=== PATIENT | male | born 1965 | race Caucasian/White ===

== ENCOUNTER 2024-07-25 07:34 | Emergency (ER) | payer OTHER, MEDICAID, SELFPAY ==
--- NOTE | 2024-07-25 08:01 | PD.EDRME ---
Rapid Medical Screening Exam RME Arrival date/time: 07/25/24 07:34 58-year-old male with HIV and recent diagnosis of syphilis presents emerged department complains of rectal pain and swelling patient was reports associated rash to the area and irritation currently patient is on antibiotics Chief Complaint: Skin/Abscess/Foreign Body Time Seen by Provider: 07/25/24 07:37
[2024-07-25 08:07] VITALS: BMI 25.4
[2024-07-25 08:10] VITALS: BP 94/63; BP 97/63; PULSE 73; RESP 17; TEMP 36.5; O2SAT 100
--- NOTE | 2024-07-25 08:44 | PC.NURSE ---
at 0832 ER had a room for patient,patient decided to leave the ER
== END 2024-07-25 08:46 | disposition left against medical advice (07) ==
PROVIDERS: Emergency Provider Emergency Medicine
DX: K62.89 Other specified diseases of anus and rectum (principal); R21 Rash and other nonspecific skin eruption; Z53.29 Procedure and treatment not carried out because of patient's decision for other reasons
CPT/HCPCS: 80053; 80307; 81001; 85025; 86780; 99281

== ENCOUNTER → 2024-08-08 | Outpatient (CLI) | payer OTHER, MEDICAID, SELFPAY | END | disposition home or self-care (01) | LOC: SWHD 09:33 | PROVIDERS: PCP Internal Medicine; Referring Provider Internal Medicine; Visit Provider Student in an Organized Health Care Education/Training Program | DX: L02.31 Cutaneous abscess of buttock (principal); J44.9 Chronic obstructive pulmonary disease, unspecified; B20 Human immunodeficiency virus [HIV] disease; Z85.819 Personal history of malignant neoplasm of unspecified site of lip, oral cavity, and pharynx; R91.8 Other nonspecific abnormal finding of lung field; A53.9 Syphilis, unspecified; R56.9 Unspecified convulsions; E03.9 Hypothyroidism, unspecified; F17.200 Nicotine dependence, unspecified, uncomplicated; F10.90 Alcohol use, unspecified, uncomplicated; D64.9 Anemia, unspecified; B19.20 Unspecified viral hepatitis C without hepatic coma | CPT/HCPCS: 99214; A9270; G0463 ==

== ENCOUNTER → 2024-08-22 | Outpatient (CLI) | payer OTHER, MEDICAID, SELFPAY | END | disposition home or self-care (01) | LOC: SWHD 09:57 | PROVIDERS: Visit Provider Student in an Organized Health Care Education/Training Program | DX: L02.31 Cutaneous abscess of buttock (principal); L98.491 Non-pressure chronic ulcer of skin of other sites limited to breakdown of skin; J44.9 Chronic obstructive pulmonary disease, unspecified; B20 Human immunodeficiency virus [HIV] disease; Z85.819 Personal history of malignant neoplasm of unspecified site of lip, oral cavity, and pharynx; R91.8 Other nonspecific abnormal finding of lung field; A53.9 Syphilis, unspecified; R56.9 Unspecified convulsions; E03.9 Hypothyroidism, unspecified; F17.200 Nicotine dependence, unspecified, uncomplicated; F10.90 Alcohol use, unspecified, uncomplicated; D64.9 Anemia, unspecified; B19.20 Unspecified viral hepatitis C without hepatic coma | CPT/HCPCS: 99213; A9270; G0463 ==

== ENCOUNTER → 2024-11-21 | Outpatient (CLI) | payer OTHER, MEDICAID, SELFPAY ==
--- NOTE | 2024-11-21 10:52 | XR_ITS ---
Examination: PA lateral chest 2 views TECHNIQUE: Upright PA lateral chest 2 views Exam date and time: November 21, 2024 12:16 PM Comparison May 11, 2023 INDICATIONS: Shortness of breath 6 months. FINDINGS: Prominent pneumonia right base right middle lobe Mild hyperexpansion Normal heart size IMPRESSION: Prominent pneumonia right base right middle lobe
== END | disposition home or self-care (01) ==
PROVIDERS: PCP Student in an Organized Health Care Education/Training Program; Referring Provider Student in an Organized Health Care Education/Training Program; Visit Provider Student in an Organized Health Care Education/Training Program
DX: J18.9 Pneumonia, unspecified organism (principal)
CPT/HCPCS: 71046

== ENCOUNTER 2025-02-02 11:03 | Outpatient (RCR) | payer OTHER, MEDICAID, SELFPAY ==
--- NOTE | 2025-02-02 11:53 | CTCFLWUP_ITS ---
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 Patient was seen for unresectable retromolar trigone cancer after being evaluated [facility] 2015. Stage IV aT2 N2c. Received 7140 cGy completed 04/2016 with concurrent chemo. Patient also HIV positive. PET scan 05/29/2021 revealed small pulmonary nodules too small to biopsy and CT scan was recommended. Repeat PET scan 12/10/2023 no hypermetabolic oropharyngeal mass but 25 mm hypermetabolic pulmonary mass left upper lobe noted. Most recent CT 01/05/2024 revealed 15 mm subcarinal lymph node as well as spiculated pulmonary mass left upper lobe 18 mm. Patient failed to show multiple times for subsequent workup including possible biopsy attempt. Patient is now here to get a checkup regarding his lung masses. Appears somewhat tired with borderline low blood pressure. Lungs clear. A#! History of stage IV aT2 N2c. Retromolar trigone cancer. Chemoradiation completed 04/2016 with no sign of recurrence clinically and on subsequent PET scans. A#2. Suspected lung malignancy on PET and CT scan performed a year ago. Missed follow-up appointments. A#3. Agrees to have new CT scan and I will see him again in 2 months. Will consider biopsy pending CT findings. Electronically signed by: Delano Short M.D. 02/02/2025 11:50 AM
== END 2025-03-02 23:59 | disposition home or self-care (01) ==
LOC: SCTC 11:03
PROVIDERS: PCP Licensed Vocational Nurse; Referring Provider Licensed Vocational Nurse; Visit Provider Radiology Therapeutic Radiology
DX: Z08 Encounter for follow-up examination after completed treatment for malignant neoplasm (principal); Z85.818 Personal history of malignant neoplasm of other sites of lip, oral cavity, and pharynx; R91.8 Other nonspecific abnormal finding of lung field; Z21 Asymptomatic human immunodeficiency virus [HIV] infection status
CPT/HCPCS: 99212; G0463

== ENCOUNTER → 2025-02-27 | Outpatient (CLI) | payer OTHER, MEDICAID, SELFPAY ==
--- NOTE | 2025-02-27 15:30 | XR_ITS ---
Examination: CT chest with intravenous contrast 2-D sagittal and coronal reconstructions Exam date and time: February 27, 2025 1602 hours Comparison August 12, 2023 INDICATIONS: Diagnosis oral cancer 2016, subtle nodular parenchymal disease in both lungs on CT chest February 10, 2024, restaging CTDI:vol (mGy) 10.9 DLP: (mGycm) 453 Technique: Multiple axial sections of the thorax have been obtained. Sections have been obtained, 3 mm slice thickness. Mediastinal and lung density settings have been obtained. Intravenous contrast administered, 30 cc Isovue-300. 2-D sagittal, coronal images obtained. Low dose protocols were performed. One or more of the following dose reduction techniques were used; automated exposure control, adjustment of the mA and/or KV according to patient size, use of iterative reconstruction technique. Findings: No thoracic aortic aneurysmal dilatation or dissection No pulmonary artery filling defects on this non-CTA study No paratracheal tracheobronchial or bronchopulmonary adenopathy Again noted nodular parenchymal disease in the right lung, severe in the right middle lobe without significant change from February 10, 2024 There is more prominent nodular parenchymal disease at the left base, axial image 218, including 12 mm nodule No visualized liver or splenic lesion No gallstones No pancreatic or adrenal mass No hydronephrosis IMPRESSION: Again noted extensive nodular parenchymal disease in the right lung, most prominent in the right middle lobe without significant change compared to prior study There is interval more prominent nodular parenchymal disease at the left base including 12 mm pulmonary nodule All of this disease may be infectious in etiology, pulmonary neoplastic disease less likely but not excluded, clinical correlation advised, recommend 3 month follow-up CT chest without contrast
== END | disposition home or self-care (01) ==
PROVIDERS: Referring Provider Radiology Therapeutic Radiology; Visit Provider Radiology Therapeutic Radiology
DX: R91.8 Other nonspecific abnormal finding of lung field (principal); C06.2 Malignant neoplasm of retromolar area
CPT/HCPCS: 71260; A4649; Q9967

== ENCOUNTER 2025-04-06 10:25 | Outpatient (RCR) | payer OTHER, MEDICAID, SELFPAY ==
--- NOTE | 2025-04-06 11:27 | CTCFLWUP_ITS ---
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 Patient was seen for unresectable retromolar trigone cancer after being evaluated at [facility] 2015. Stage IV aT2 N2c. Received 7140 cGy completed 04/2016 with concurrent chemo. Patient also HIV positive. Most recent PET scan 12/10/2023 revealed no hypermetabolic oropharyngeal mass but 25 mL hypermetabolic pulmonary mass left upper lobe noted. CT scan 01/05/2024 revealed 15 mm subcarinal lymph node as well as spiculated pulmonary mass left upper lobe 18 mm. After failing to show for over a year was seen at [facility] 02/02/[address] scan was ordered. This revealed on 02/27/2025 no significant change with extensive nodular parenchymal disease right lung and right middle lobe noted previously. There was more prominent nodular parenchymal disease left base including 12 mm pulmonary nodule. Patient was examined with no sign of any recurrence in the oral cavity or neck. Lungs were clear. Patient states that he was recently treated for pneumonia and had 2 different antibiotics recently completed. A#1. History of stage IV retromolar trigone cancer 2016 chemoradiation with complete response. A#2. Chronic nodular parenchymal disease chest no significant CT change from the one done a year ago. A#3. Being followed at [facility] recently treated with antibiotics for pneumonia. Urged continued follow-up. A#4. I will see him back in 4 months. Cc: [facility]. Electronically signed by: Delano Short M.D. 04/06/2025 11:25 AM
== END 2025-05-02 23:59 | disposition home or self-care (01) ==
LOC: SCTC 10:25
PROVIDERS: PCP Internal Medicine; Referring Provider Internal Medicine; Visit Provider Radiology Therapeutic Radiology
DX: Z08 Encounter for follow-up examination after completed treatment for malignant neoplasm (principal); Z85.818 Personal history of malignant neoplasm of other sites of lip, oral cavity, and pharynx; Z92.3 Personal history of irradiation; Z92.21 Personal history of antineoplastic chemotherapy; R91.8 Other nonspecific abnormal finding of lung field
CPT/HCPCS: 99212; G0463

== ENCOUNTER 2025-05-08 21:54 | Inpatient (IN) | payer OTHER, MEDICAID, MEDICARE, SELFPAY ==
[2025-05-08] VITALS (13 sets, daily range): BP systolic 93–104; BP diastolic 54–58; PULSE 76–98; RESP 16–26; TEMP 36.7–37.8; O2SAT 89–100; BMI 25.8
--- NOTE | 2025-05-08 22:17 | XR_ITS ---
EXAMINATION: AP chest single view TECHNIQUE: AP portable upright chest single view Date and time: May 0801/2025, 10:22 p.m., comparison November 21, 2024 MEDICATIONS: Shortness of breath today. FINDINGS: Extensive left lung and right base pneumonia. Normal heart size Significant osteopenia IMPRESSION: Extensive left lung and right base pneumonia
--- NOTE | 2025-05-08 22:21 | PD.EDADULT ---
ED General RME/HPI General Chief complaint: Shortness of Breath/Dyspnea Stated complaint: SOB Time Seen by Provider: 05/08/25 22:02 Arrival date/time: 05/08/25 21:54 RME / HPI RME / HPI narrative: Joseph is a 59 y/o male with PMHx of HIV (on Dovato,), oral cancer, hypothyroidism, and depression who comes in for an evaluation of shortness of breath, worsening, acute onset, brought in from EMS services, oxygen level at 75 with associated subjective fever. Patient reports that his condition has been worsening. He denies a cough at this time, chest pain, however, endorses that he has not been eating well and has had some vomiting episodes described as clear. He says that he used to see Dr Corral, infectious disease, for his HIV management and is on fluconazole prophylactically for valley fever, however he has never had valley fever. He says that he is not seeing Dr Corral anymore due to insurance purposes. He does not have a current PCP at this time. He does not use home oxygen at this time. He does not have any history of lung disease. He has been admitted to the hospital for similar kind of symptoms. He says that he was drinking last night, however does not drink heavy. He says he lives alone. 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 He does state that he sees Dr. Short for his oral cancer for treatment as this was diagnosed in 2017 at [facility]. Denies any recent sick contacts, however says that his dog recently. Related Data Home Medications ?Medication ?Instructions ?Recorded ?Confirmed dolutegravir 50 mg-lamivudine 300 1 tab PO QDAY 05/27/21 02/10/24 mg tablet (Dovato) levothyroxine 200 mcg tablet 150 mcg PO QDAY 05/27/21 02/10/24 omeprazole 20 mg capsule,delayed 20 mg PO QDAY 05/27/21 02/10/24 release venlafaxine 75 mg capsule,extended 225 mg PO QAM 05/27/21 02/10/24 release 24 hr (Effexor XR) Allergies Allergy/AdvReac Type Severity Reaction Status Date / Time sulfamethoxazole Allergy Severe HIVES Verified 05/08/25 21:57 trimethoprim Allergy Severe HIVES Verified 05/08/25 21:57 Review of Systems Review of Systems Narrative Review of Systems: 12 point ROS reviewed and is otherwise negative unless stated directly in the HPI ED Exam Narrative Physical exam: General: AAOx3, in mild distress, HEENT: Moist mucous membranes, conjunctiva clear, EOMI, PERRLA, poor dentition Cardiovascular: S1, S2, radial pulses +2 bilat, RRR Pulmonary: CTAB bilat no cough, no wheezing, on oxy mask GI: No tenderness to light or deep palpitation, no guarding, rigidity, rebound tenderness or distension Extremities: No presence of trace or pitting edema in lower extremities bilaterally, dorsalis pedis pulses +2 bilaterally, tattoo on leg Neuro: AAOx3, no focal motor or sensory deficits in the UE or LE bilat Psych: Able to cooperate. Course Quality Measures none Orders Category Date Time Status Bedside COVID-19 Antigen Test NOW Care 05/08/25 22:03 Active Bedside Influenza A&B Antigen Test NOW Care 05/08/25 22:15 Completed COVID-19 Screening Questionnaire NOW Care 05/09/25 02:[address] Screening NOW Care 05/08/25 23:[address] Screening NOW Care 05/08/25 23:18 Active Decision to Admit X1 Care 05/09/25 02:59 Active EKG (ED ONLY) *Do not use* NOW Care 05/08/25 22:03 Completed Insert IV NOW Care 05/08/25 22:03 Active Straight [In and Out Catheter] X1 Care 05/08/25 22:[address] abdomen pelvis w con Stat Exams 05/08/25 23:[address] angio chest Stat Exams 05/08/25 23:18 Taken EKG (ED Only) Stat Exams 05/08/25 22:03 Ordered US venous doppler LE BI Stat Exams 05/09/25 00:00 Taken XR chest 1V portable Stat Exams 05/08/25 22:17 Taken ABG [Arterial Blood Gas] Stat Lab 05/08/25 22:30 Completed BNP [B-Type Natriuretic Peptide] Stat Lab 05/09/25 00:32 Completed Beta Hydroxybutyrate Stat Lab 05/08/25 22:10 Completed Bilirubin,Direct Stat Lab 05/08/25 22:10 Completed Blood Culture (Lab) Stat Lab 05/08/25 22:15 Received C-Reactive Protein Stat Lab 05/08/25 22:10 Completed CBC Stat Lab 05/08/25 22:10 Completed CMP [Comprehensive Metabolic Panel] Stat Lab 05/08/25 22:10 Completed Cocci Serology IgM with reflex to IgG [Cocci Serology, Lab 05/08/25 23:25 Received Unk History] Stat D-Dimer Stat Lab 05/08/25 22:10 Completed Drug Screen,Urine Stat Lab 05/09/25 02:12 Received Free T3 Stat Lab 05/08/25 22:10 Completed Free T4 (Free Thyroxine) Stat Lab 05/08/25 22:10 Completed Influenza A & B Rapid Panel Stat Lab 05/08/25 22:03 Ordered Lactic Acid [Lactate (Lactic Acid)] Stat Lab 05/08/25 22:10 Completed Mag [Magnesium] Stat Lab 05/08/25 22:10 Completed Procalcitonin Stat Lab 05/08/25 22:10 Completed Sed Rate (ESR) Stat Lab 05/08/25 22:10 Completed Sputum Culture and Gram Stain Stat Lab 05/09/25 00:38 Received Thyroid Stimulating Hormone Stat Lab 05/08/25 22:10 Completed Troponin I Stat Lab 05/08/25 22:10 Completed Urinalysis, C/S if Indicated Stat Lab 05/09/25 02:12 Completed ALBUTEROL RT 3ml [Proventil Rt 3ml] Med 05/08/25 22:18 Discontinued 2.5 mg INH X1 ONE Azithromycin Inj [Zithromax Inj] 500 mg Med 05/09/25 01:43 Discontinued Sodium Chloride 0.9% 250 ml [Ns] 250 ml IV X1 Ketorolac Inj [Toradol Inj] Med 05/08/25 22:19 Discontinued 30 mg IVP X1 ONE Magnesium Sulfate 2 GM Ivpb [Magnesium Sulfate Ivpb] Med 05/08/25 23:16 Discontinued 2 gm in 50 ml IV X1 MethylPREDNISolone.* [SoluMEDROL Inj] Med 05/08/25 22:19 Discontinued 125 mg IVP X1 ONE Ondansetron Inj [Zofran Inj] Med 05/08/25 22:28 Discontinued 4 mg IVP X1 ONE Sodium Chloride 0.9% 1000 ml [Ns] 1,000 ml Med 05/08/25 22:19 Discontinued IV 999 mls/hr Sodium Chloride 0.9% 1000 ml [Ns] 1,000 ml Med 05/09/25 00:43 Discontinued IV 999 mls/hr Sodium Chloride Rt Kelly 10% [NS Rt Kelly 10%] Med 05/08/25 23:16 Discontinued 5 ml INH X1 ONE cefTRIAXone/D5w 1gm IV premix [Rocephin/D5w 1gm IV Med 05/08/25 22:20 Discontinued premix] 1 gm in 50 ml IV X1 Chest Physiotherapy Treatment NOW RT 05/08/25 23:15 Active Oxygen Delivery NOW RT 05/08/25 22:03 Active Sputum Induction PRN RT 05/08/25 23:30 Ordered Vital Signs Vital signs: Vital Signs Temperature 98.1 F 05/08/25 22:00 Pulse Rate 84 05/08/25 22:00 Respiratory Rate 18 05/08/25 22:00 Blood Pressure 93/58 L 05/08/25 22:00 Pulse Oximetry (%) 95 05/08/25 22:00 Oxygen Delivery Method Room Air 05/08/25 22:00 Discharge Plan Plan Patient Disposition: Admit Acute Care w/in Hospital Prescriptions/Referrals Prescriptions/Med Rec: No Action venlafaxine [Effexor XR] 75 mg Capsule,Extended Release 24hr 225 mg PO QAM omeprazole 20 mg Capsule,Delayed Release(Dr/Ec) 20 mg PO QDAY levothyroxine 200 mcg Tablet 150 mcg PO QDAY Dovato 50-300 mg Tablet 1 tab PO QDAY Referrals: No Primary/Family,Physician [Primary Care Provider] - In 1 week Problem List Clinical Impression: Sepsis due to pneumonia Patient/Caregiver Discharge Instructions Print Language: German Stand Alone Forms: Amisha Award Info., Patient Portal Info Letter MDM Narrative MDM hospital course (for use when minimal MDM required): 2220: Sepsis alert initiated for fever and tachypnea. Initiating labs at this time in addition to Toradol, Solu-Medrol, Zofran, albuterol x 1 and Rocephin. Will also order chest x-ray and EKG in addition to sepsis workup 2320: Initiated high-flow for patient, will order T4 and T3 as TSH was elevated at 38, labs reviewed as well, ordered magnesium for hypomagnesemia and bronchospasm. Will order CTA chest with contrast for further evaluation of lungs as chest x-ray shows significant pneumonia. Also ordered CT abdomen pelvis as well. We are concerned for mucous plug at this time due to partial blockage of left lung. ABG pH 7.37, pCO2 31, bicarbonate 18, pO2 64. Also ordered chest physiotherapy as well. 1 L bolus for HANNA w/ CTA. 0205: Reviewed imaging which shows does not show PE at this time, however, ground glass opacities in the lungs. CT Abd/Pelvis shows some stool burden, however no abscess or free air or perforation. Gave additional azithromycin and additional fluid bolus. Spoke with hospitalist team who will discuss case for admission. 0300: Hospitalist team accepts patient for admission. EKG Interpretation EKG #1: EKG Interpretation: Heart rate 93, sinus rhythm with some PVCs, QT 345, no ST changes Medication Administration(s) Medication Administration History Discontinued Medications Albuterol (Albuterol Rt 2.5 Mg/3 Ml Nebu) 2.5 mg INH X1 ONE Stop: 05/08/25 22:19 Last Admin: 05/08/25 22:54 Dose: 2.5 mg Documented By: LISE Sodium Chloride (Ns) 1,000 mls @ 999 mls/hr IV .Q1H1M ONE Stop: 05/08/25 23:19 Last Infusion: 05/09/25 00:01 Dose: Infused Documented By: Admin: 05/08/25 22:52 Dose: 999 mls/hr Documented By: SUSHMA Ceftriaxone Sodium/Dextrose (Rocephin/D5w 1gm Iv Premix) 1 gm in 50 mls @ 100 mls/hr IV X1 ONE Stop: 05/08/25 22:49 Last Infusion: 05/08/25 23:33 Dose: Infused Documented By: Admin: 05/08/25 22:53 Dose: 100 mls/hr Documented By: SUSHMA Magnesium Sulfate (Magnesium Sulfate Ivpb) 2 gm in 50 mls @ 25 mls/hr IV X1 ONE Stop: 05/09/25 01:15 Last Infusion: 05/09/25 01:59 Dose: Infused Documented By: Admin: 05/08/25 23:50 Dose: 25 mls/hr Documented By: CALLIE Sodium Chloride (Ns) 1,000 mls @ 999 mls/hr IV .Q1H1M ONE Stop: 05/09/25 01:43 Last Infusion: 05/09/25 01:59 Dose: Infused Documented By: Admin: 05/09/25 00:45 Dose: 999 mls/hr Documented By: CALLIE Azithromycin 500 mg/ Sodium (Chloride) 250 mls @ 250 mls/hr IV X1 ONE Stop: 05/09/25 02:42 Last Admin: 05/09/25 02:13 Dose: 250 mls/hr Documented By: CALLIE Comments: DISCARTED MEDS BOTTLE BEFORE SCANNING MEDS. Ketorolac Tromethamine (Ketorolac Inj 30 Mg/Ml Vial) 30 mg IVP X1 ONE Stop: 05/08/25 22:20 Last Admin: 05/08/25 22:52 Dose: 30 mg Documented By: SUSHMA Methylprednisolone Sodium Succinate (Methylprednisolone Sod Succ 62.5 Mg/Ml 2ml Vial) 125 mg IVP X1 ONE Stop: 05/08/25 22:20 Last Admin: 05/08/25 22:52 Dose: 125 mg Documented By: SUSHMA Ondansetron HCl (Ondansetron Inj 2 Mg/Ml Inj 2 Ml) 4 mg IVP X1 ONE; Protocol Stop: 05/08/25 22:29 Last Admin: 05/08/25 23:00 Dose: 4 mg Documented By: SUSHMA Sodium Chloride (Sodium Chloride Rt 10% 15 Ml Nebu) 5 ml INH X1 ONE Stop: 05/08/25 23:17 Last Admin: 05/09/25 00:36 Dose: 5 ml Documented By: LISE Consultations/Discussions re: Management Consult #1: Date/time: 05/09/25 2:06 am Physician, specialty, service, details: 0206: Spoke with hospitalist team who will discuss case for admission. 0300: Hospitalist team accepts patient for admission
[2025-05-08 22:25] LABS: Lactate (Lactic Acid) 1.8 mMol/L (0.4-2.0)
[2025-05-08 22:26] LABS: Basophils # (Auto) 0.0 Thou/mm3 (0.0-0.2); Basophils % (Auto) 0 % (0-2.5); Eosinophils # (Auto) 0.0 Thou/mm3 (0.0-0.5); Eosinophils % (Auto) 0 % (0-10); Hematocrit 35.1 % (41.0-53.0); Hemoglobin 11.4 g/dL (13.5-16.0); Immature Granulocytes Auto 0.16 Thou/mm3 (0.00-0.00); Lymphocytes # (Auto) 2.6 Thou/mm3 (1.0-4.8); Lymphocytes % (Auto) 18 % (10-50); Mean Corpuscular HGB Conc 32.5 g/dl (31.0-37.0); Mean Corpuscular Hemoglobin 28.9 pg (25.0-35.0); Mean Corpuscular Volume 89 fL (80-100); Monocytes # (Auto) 1.0 Thou/mm3 (0.0-0.8); Monocytes % (Auto) 7 % (0-12); Neutrophils # (Auto) 10.9 Thou/mm3 (1.8-7.7); Neutrophils % (Auto) 74 % (37-80); Nucleated Red Blood Cell # 0.00 Thou/mm3 (0.00-0.00); Nucleated Red Blood Cell % 0 /100 WBC (0); Platelet Count 187 Thou/mm3 (140-440); RDW Standard Deviation 54.4 fL (35.1-43.9); Red Blood Count 3.95 Miln/mm3 (4.50-5.90); White Blood Count 14.6 Thou/mm3 (3.8-10.6)
[2025-05-08 22:34] LABS: Base Excess -7 (-3-3); HCO3 18 mEq/L (20-26); Inspired Oxygen, FIO2 13 %; O2 Saturation 88 % (91-98); PCO2 31 mmHg (32.0-48.0); PO2 64 mmHg (83-108); pH, Arterial 7.37 (7.35-7.45)
[2025-05-08 22:36] LABS: Allen Test Performed/OK; Puncture Site Right Radial
[2025-05-08 22:39] LABS: Beta Hydroxybutyrate 0.8 mmol/L (<0.6); Sed Rate (ESR) 14 mm/hr (0-20)
[2025-05-08] MEDS: MethylPREDNISolone SOD SUCC 62.5 MG/ML 2ML VIAL 125 MG IVP (22:52)
[2025-05-08] MEDS: SODIUM CHLORIDE 0.9% 1000 ML 1,000 ML 999 ML IV (22:52)
[2025-05-08] MEDS: KETOROLAC INJ 30 MG/ML VIAL IVP (22:52)
[2025-05-08] MEDS: cefTRIAXone/D5w 1gm IV premix 1 GM/50 ML BAG IV (22:53)
[2025-05-08] MEDS: ALBUTEROL RT 2.5 MG/3 ML NEBU INH (22:54)
[2025-05-08 22:57] LABS: D-Dimer 1290 ng/mL (<600)
[2025-05-08 22:58] LABS: Alanine Aminotransferase 10 U/L (10-49); Albumin, Serum 4.1 gm/dL (3.5-5.0); Albumin/Globulin Ratio 1.5 (1.2-2.2); Alkaline Phosphatase 73 U/L (46-116); Anion Gap 10 (7-16); Aspartate Amino Transferase 21 U/L (0-34); BUN/Creatinine Ratio 18 Ratio (12-20); Bilirubin,Direct 0.2 mg/dL (0.0-0.3); Bilirubin,Total 0.5 mg/dL (0.3-1.2); Blood Urea Nitrogen 35 mg/dL (9-23); C-Reactive Protein 20.1 mg/dL (0.0-0.9); Calcium 9.1 mg/dL (8.3-10.6); Calcium (Corrected) 9.1 mg/dL (8.5-10.1); Carbon Dioxide 19.4 mMol/L (20.0-31.0); Chloride 106 mMol/L (98-107); Creatinine (Component) 1.9 mg/dL (0.6-1.3); Estimated Creatinine Clearance 43.8 mL/min (>60); Globulin 2.8 gm/dL (2.3-3.5); Glucose 100 mg/dL (74-106); Magnesium 1.3 mg/dL (1.6-2.6); Osmolality,Calculated 278 (275-295); Potassium 3.8 mMol/L (3.4-5.1); Procalcitonin 7.15 ng/ml (0.0-0.49); Sodium 135 mMol/L (136-145); Thyroid Stimulating Hormone 38.13 uIU/mL (0.55-4.78); Total Protein 6.9 gm/dL (5.7-8.2); Troponin I < 0.020 ng/mL (0.0-0.045); eGFR 40 See Note
[2025-05-08] MEDS: ONDANSETRON INJ 2 MG/ML INJ 2 ML 4 MG IVP (23:00)
--- NOTE | 2025-05-08 23:18 | XR_ITS ---
Examination: CTA chest with intravenous contrast 2-D reconstructions 3-D reconstructions, vascular Date and time of exam: May 08, 2025, 11:36 p.m. INDICATIONS: Shortness of breath chest pain today CTDI: vol (mGy) 9.28 DLP: (mGycm) 361 Technique: Multiple axial sections of the thorax have been obtained. 3 mm slice thickness, from below the hemidiaphragms to above the apices of the lungs. Mediastinal and lung density settings have been obtained. 2-D sagittal and coronal reconstructions. 3-D angiographic renderings, 3-D volume renderings, 3D post processing, vascular maximum intensity projections obtained. Contrast administered is 50 cc Isovue-300. Low dose protocols were performed. One or more of the following dose reduction techniques were used; automated exposure control, adjustment of the mA and/or KV according to patient size, use of iterative reconstruction technique. Findings: No thoracic aortic aneurysm dilatation or dissection No pulmonary artery emboli. Minimal hilar lymphadenopathy. Extensive bilateral pneumonia, no pleural disease No visualized liver splenic lesion no gallstones Pancreas is not enlarged IMPRESSION: Negative for pulmonary artery emboli Extensive bilateral pneumonia
--- NOTE | 2025-05-08 23:18 | XR_ITS ---
Examination: CT abdomen with intravenous contrast CT pelvis with intravenous contrast 2-D coronal reconstructions 2-D sagittal reconstructions Date and time of exam: May 08, 2025, 11:36 p.m. INDICATIONS: Onset abdominal pain today. CTDI: vol (mGy) 7.34 DLP: (mGycm) 49 Technique: Multiple axial sections of the abdomen and pelvis have been obtained. 64 slice high-resolution scanner used. 3 mm axial sections have been obtained, post intravenous injection 50 cc Isovue-300 2-D sagittal, coronal reconstructions obtained. Low dose protocols were performed. One or more of the following dose reduction techniques were used; automated exposure control, adjustment of the mA and/or KV according to patient size, use of iterative reconstruction technique. Findings: No focal liver lesions No gallstones Splenomegaly 15 cm Extensive bibasilar pneumonia No pancreatic or adrenal mass No renal or ureteral calculi Aorta normal size No bowel obstruction No pericecal inflammatory change Urinary bladder intact Mild prostatomegaly IMPRESSION: Splenomegaly No acute process in the abdomen or pelvis
--- NOTE | 2025-05-08 23:34 | PC.RT ---
pt on CT at this time RT with pt 15L oxy mask tolerating well RR25, spo2 96,, hr 76.
[2025-05-08 23:39] LABS: Free T3 1.2 pg/mL (2.3-4.2); Free T4 (Free Thyroxine) 0.61 ng/dL (0.89-1.76)
[2025-05-08] MEDS: Magnesium Sulfate 2 GM Ivpb 2 GM/50 ML BAG IV (23:50)
--- NOTE | 2025-05-08 23:59 | PC.RT ---
talk to DR. Ceja pt was titrated to 10L oxy mask once back from ct spo2 100%, RR18-25 mild tachypnea noted,
[2025-05-09] VITALS (14 sets, daily range): BP systolic 100–134; BP diastolic 58–83; PULSE 64–84; RESP 14–22; TEMP 36.1–37.2; O2SAT 76–100; BMI 26.2
--- NOTE | 2025-05-09 | XR_ITS ---
Examination: Venous duplex lower extremity sonogram, bilateral. Date and time of exam: May 09, 2025, 0015 hours INDICATIONS: Difficulty breathing today Technique: Multiple sonographic images of the deep venous system have been obtained. B-mode/2-D grayscale imaging of vascular structures and Doppler spectral analysis (waveforms) and color performed Both legs are examined. Findings: Deep venous systems do not demonstrate abnormal echogenicity. All visualized deep veins exhibit compressibility. All visualized deep veins exhibit augmentation. Impression: Negative for deep vein thrombosis
[2025-05-09] MEDS: SODIUM CHLORIDE RT 10% 15 ML NEBU 5 ML INH (00:36)
[2025-05-09] MEDS: SODIUM CHLORIDE 0.9% 1000 ML 1,000 ML 999 ML IV (00:45)
[2025-05-09 00:55] LABS: B-Type Natriuretic Peptide 316 pg/mL (0-100)
--- NOTE | 2025-05-09 01:25 | PRELIM_ITS ---
CT scan of the abdomen and pelvis with intravenous contrast (axial sections with sagittal and coronal reformats) May 08, 2025 2336 hours Clinical History: Abd pain Comparison: No prior study is available for comparison. Radiation Dose: Total exam DLP 449 mGy/cm Findings: The evaluation is limited by respiratory motion artifact. The liver, pancreas, kidneys and adrenals are unremarkable. The gallbladder is distended. The spleen is mildly enlarged, measuring 15 cm. A small fat-containing umbilical hernia is present. No evidence of bowel obstruction. A moderate amount of fecal material is present in the colon. The appendix is within normal limits (coronal images 65- 72/160). There is no mesenteric or retroperitoneal adenopathy. The abdominal aorta demonstrates atheromatous calcification without evidence of aneurysm. The urinary bladder is incompletely distended at the time of the examination and appears mildly thick walled. There is no free fluid or free air. The osseous structures are unremarkable. There are small fat-containing bilateral inguinal hernias. Impression: No evidence of bowel obstruction, free air or abscess. Other findings as described above. Report on Chest CT to follow. Report Electronically Signed By: Kayleen Russell 05/09/2025 1:24:57 AM [EST]
--- NOTE | 2025-05-09 01:47 | PRELIM_ITS ---
CT angiogram of the chest with intravenous contrast (axial sections with sagittal and coronal reformats) May 08, 2025 2336 hours Clinical History: SOB Technique:Helical axial sections with sagittal and coronal reformats of the chest were obtained with intravenous contrast. Iterative reconstruction technique was employed to reduce patient radiation exposure. 3D/MIP reconstructed images were also provided. Comparison: No prior study is available for comparison. Findings: The evaluation of some of the subsegmental pulmonary artery divisions is limited due to a suboptimal bolus of contrast. No pulmonary thromboembolism in the remainder of the pulmonary artery divisions. The mediastinum demonstrates no evidence of mass or lymphadenopathy. The thoracic aorta is unremarkable. There is a small pericardial effusion. There are alveolar opacities with ground glass opacities in the bilateral lungs, more prominent in left lung.There are scattered subsegmental atelectasis and scarring noted. No evidence of pleural effusion or pneumothorax. Mild degenerative changes are identified in the spine. The visualized upper abdominal viscera are unremarkable. Impression: No CT evidence of pulmonary thromboembolism (limited evaluation of some of the subsegmental pulmonary artery divisions due to a suboptimal bolus of contrast). Recommend additional evaluation, if clinically indicated. Alveolar opacities with ground glass opacities in the bilateral lungs, likely of infectious etiology. Recommend clinical correlation. Small pericardial effusion. Other findings as described above. Report Electronically Signed By: Kayleen Russell 05/09/2025 1:47:33 AM [EST]
[2025-05-09] MEDS: AZITHROMYCIN INJ 500 MG in SODIUM CHLORIDE 0.9% 250 ML 250 ML 250 MG IV (02:13)
--- NOTE | 2025-05-09 02:16 | PRELIM_ITS ---
Bilateral lower extremity venous Doppler ultrasound. May 09, 2025 0115 hours Clinical history: EDEMA H[employer]IM[employer] Technique: Duplex scan of the bilateral lower extremity deep venous systems was performed utilizing 2D grayscale imaging, Doppler spectral analysis and color flow Doppler and with compression. Comparison: No prior study is available for comparison. Findings: Castillo scale, color flow and spectral Doppler evaluation of the lower extremity deep veins was performed. Right: The common femoral, superficial femoral and popliteal veins are patent and compressible. Normal respiratory variation is noted. There is no evidence of occlusive or nonocclusive thrombus. The great saphenous vein is patent at the level of the saphenofemoral junction. Left: The common femoral, superficial femoral and popliteal veins are patent and compressible. Normal respiratory variation is noted. There is no evidence of occlusive or nonocclusive thrombus. The great saphenous vein is patent at the level of the saphenofemoral junction. Impression: No sonographic evidence of deep venous thrombosis in both lower extremities. Report Electronically Signed By: Kayleen Russell 05/09/2025 2:15:33 AM [EST]
[2025-05-09 02:21] LABS: Collection Type, Urine Catheter; Squamous Epithelial Cell,Urine 0 /hpf (0-5)
[2025-05-09 02:27] LABS: Bilirubin,Urine Negative (Negative); Blood,Urine Negative (Negative); Clarity,Urine Clear (Clear/Hazy); Color,Urine Lt-Yellow (Lt Yel-Yel); Culture Indicated,Urine Not Indicated; Glucose, Urine Negative (Negative); Ketones,Urine Negative (Negative); Leukocyte Esterase,Urine Negative (Negative); Nitrite,Urine Negative (Negative); PH,Urine 6.0 (5.0-7.0); Protein,Urine Trace (Neg - Trace); RBC,Urine 1 /hpf (0-3); Specific Gravity,Urine 1.017 (1.001-1.035); Urobilinogen,Urine Negative mg/dL (0.0-1.0); WBC,Urine < 1 /hpf (0-5)
--- NOTE | 2025-05-09 03:37 | ESHP_ITS ---
<Statement entered by Wu Bejarano MD - 05/09/25 16:11> I have discussed and was present for the essential components of the history, physical examination, diagnosis, and treatment plan with the resident. I agree with the patient's care as documented by the resident and amended herein by me. Wu Bejarano MD FACP. Documentation for date of: 05/09/25 HPI History of Present Illness Chief complaint: shortness of breath History of present illness: This is a 59 year old male patient with past medical history of HIV ( on Davato since 2009) last CD4 count 110 in 2022 ,retromolar trigone cancer, Hypothyrodism ,CKD, Depression and Metamphetamine user presented to the ER with shortness of breath. He has been experiencing shortness of breath associated with fever since yesterday. He complains of occasional hemoptysis with cough but denies any chest pain ,chest tightness ,hemetemsis and Melena. He had previous hospitalization for pneumonia 4 months back .He consults Dr. Corral for his HIV treatment but not seeing him because of Insurance issues. ED Visit Vitals - BP:112/64, AL: 71bpm , RR:15 ,Temp 100.1 Saturating at 90% on 10 L of oxygen. Pertinent Labs are Hb:11.4,WBC:14.6 ,BUN:35, Creatinine :1.9 , Q-npheo-3367, BNP-316, ABG Shows PH-7.37,Spo2-64, Co2- 31, HCo3-19.4, Procal-7.15 , CRP-20.1 ,TSH-38.1, Free T4-0.6, Free T3-1.2. Creatinine clearance-43.8 eGFR-40 , Magnesium-1.3. Positive for Marijuana and Amphetamines Imaging CT angio of chest B/L alveolar opacities suggestive of Infective etiology. Past Medical History: HIV- on Dovato, Hypothyrodism on Levothyroxine , Depression- Venlafaxine, On flucanazole and Dapsone for prophylaxis against opportunistic infection. Allergic History: Allergic to TMP-SMX - which was like 15 years ago- cant remember type of reaction. Social History- Smokes Tobacco , Marijuana, Metamphetamine user and used to drink alcohol. ROS - as stated above Review of Systems Review of Systems Systems Reviewed: All systems reviewed, normal except as documented Exam Vital Signs Temp Pulse Resp BP Pulse Ox O2 Del Method O2 Flow Rate 98.1 F 77 16 121/68 100 Oxy Mask 8 05/09/25 02:05 05/09/25 02:25 05/09/25 02:25 05/09/25 02:05 05/09/25 02:25 05/09/25 02:05 05/09/25 02:25 FiO2 100 05/08/25 23:14 Narrative Exam GENERAL: NAD, AAOx3 HEENT: Moist mucosa. Eyes open, symmetrical, & clear CARDIO: Normal Heart sounds. No Murmurs. PULM: Dyspnea at rest , bilateral crackles heard over the bases GI: Abdomen soft, nondistended, non tender and BS are heard SKIN/MSK/EXT: erythematous bleeding plaque over right lower extremity, Multiple scratches on both hands.. Pedal pulses present B/L NEURO: AAOx3, no focal neuro deficits, able to move all 4 extremities Results: Labs 05/08/25 22:10 05/08/25 22:10 Labs: Short CBC 05/08/25 Range/Units 22:10 WBC 14.6 H (3.8-10.6) Thou/mm3 Hgb 11.4 L (13.5-16.0) g/dL Hct 35.1 L (41.0-53.0) % Plt Count 187 (140-440) Thou/mm3 BMP 05/08/25 22:10 Sodium 135 L Potassium 3.8 Chloride 106 Carbon Dioxide 19.4 L BUN 35 H Creatinine 1.9 H Glucose 100 Calcium 9.1 Cardiac Enzymes 05/08/25 Range/Units 22:10 Troponin I < 0.020 (0.0-0.045) ng/mL Liver Function 05/08/25 Range/Units 22:10 Total Bilirubin 0.5 (0.3-1.2) mg/dL Direct Bilirubin 0.2 (0.0-0.3) mg/dL AST 21 (0-34) U/L ALT 10 (10-49) U/L Alkaline Phosphatase 73 (46-116) U/L Albumin 4.1 (3.5-5.0) gm/dL Urine 05/09/25 Range/Units 02:12 Urine Color Lt-Yellow (Lt Yel-Yel) Urine Clarity Clear (Clear/Hazy) Urine pH 6.0 (5.0-7.0) Ur Specific [place] 1.017 (1.001-1.035) Urine Protein Trace (Neg - Trace) Urine Glucose (UA) Negative (Negative) ABG Interpretation ABG results: 05/08/25 22:30 ABG pH 7.37 ABG pCO2 31 L ABG pO2 64 L ABG HCO3 18 L ABG O2 Saturation 88 L ABG Base Excess -7 L Quality Measures Quality Measures none Medications Home Medications and Allergies Home Medications ?Medication ?Instructions ?Recorded ?Confirmed ?Type dolutegravir 50 mg-lamivudine 300 1 tab PO QDAY 02/10/24 History mg tablet (Dovato) levothyroxine 200 mcg tablet 150 mcg PO QDAY 05/27/21 02/10/24 History omeprazole 20 mg capsule,delayed 20 mg PO QDAY 1 02/10/24 History release venlafaxine 75 mg capsule,extended 225 mg PO QAM 05/2702/10/24 History release 24 hr (Effexor XR) Allergies Allergy/AdvReac Type Severity Reaction Status Date / Time sulfamethoxazole Allergy Severe HIVES Verified 05/08/25 21:57 trimethoprim Allergy Severe HIVES Verified 05/08/25 21:57 Visit Medications Acetaminophen (Acetaminophen 325 Mg Tablet) 650 mg PO Q6H PRN PRN Reason: Fever >100.4 Stop: 06/08/25 03:16 Acetaminophen (Acetaminophen 325 Mg Tablet) 650 mg PO Q6H PRN PRN Reason: PAIN SCALE 1-3 (mild Stop: 06/08/25 03:16 Albuterol/Ipratropium (Albuterol/Ipratropium (Duoneb) Rt Kelly 3 Ml Nebu) 3 ml INH Q6HRRT [facility] Stop: 06/08/25 06:59 Doxycycline Hyclate (Doxycycline 100 Mg Tablet) 100 mg PO BID [facility] Stop: 05/16/25 08:59 Heparin Sodium (Porcine) (Heparin Sod Inj 5000 Unit/Ml Vial) 5,000 unit SC BID [facility] Stop: 05/23/25 08:59 Lactated Ringer's (Lactated Ringers) 1,000 mls @ 60 mls/hr IV .[id number] [facility] Stop: 05/09/25 19:54 Cefepime HCl 1 gm/ Sodium (Chloride) 50 mls @ 100 mls/hr IV QDAY [facility] Stop: 05/16/25 08:59 Metronidazole (Flagyl 500 Mg Iv) 500 mg in 100 mls @ 200 mls/hr IV Q8HR [facility] Stop: 05/16/25 03:22 Metronidazole (Flagyl 500 Mg Iv) 500 mg in 100 mls @ 200 mls/hr IV X1 ONE Stop: 05/09/25 03:59 Methylprednisolone Sodium Succinate (Methylprednisolone Sod Succ 40 Mg/Ml Vial) 40 mg IVP QDAY [facility] Stop: 05/16/25 08:59 Ondansetron HCl (Ondansetron Inj 2 Mg/Ml Inj 2 Ml) 4 mg IVP Q6H PRN; Protocol PRN Reason: NAUSEA OR VOMITING Stop: 06/08/25 03:16 Sennosides (Senna Tablet) 1 tab PO QDAY PRN; Protocol PRN Reason: constipation Stop: 06/08/25 03:16 Discontinued Medications Albuterol (Albuterol Rt 2.5 Mg/3 Ml Nebu) 2.5 mg INH X1 ONE Stop: 05/08/25 22:19 Last Admin: 05/08/25 22:54 Dose: 2.5 mg Sodium Chloride (Ns) 1,000 mls @ 999 mls/hr IV .Q1H1M ONE Stop: 05/08/25 23:19 Last Infusion: 05/09/25 00:01 Dose: Infused Ceftriaxone Sodium/Dextrose (Rocephin/D5w 1gm Iv Premix) 1 gm in 50 mls @ 100 mls/hr IV X1 ONE Stop: 05/08/25 22:49 Last Infusion: 05/08/25 23:33 Dose: Infused Magnesium Sulfate (Magnesium Sulfate Ivpb) 2 gm in 50 mls @ 25 mls/hr IV X1 ONE Stop: 05/09/25 01:15 Last Infusion: 05/09/25 01:59 Dose: Infused Sodium Chloride (Ns) 1,000 mls @ 999 mls/hr IV .Q1H1M ONE Stop: 05/09/25 01:43 Last Infusion: 05/09/25 01:59 Dose: Infused Azithromycin 500 mg/ Sodium (Chloride) 250 mls @ 250 mls/hr IV X1 ONE Stop: 05/09/25 02:42 Last Admin: 05/09/25 02:13 Dose: 250 mls/hr Ketorolac Tromethamine (Ketorolac Inj 30 Mg/Ml Vial) 30 mg IVP X1 ONE Stop: 05/08/25 22:20 Last Admin: 05/08/25 22:52 Dose: 30 mg Methylprednisolone Sodium Succinate (Methylprednisolone Sod Succ 62.5 Mg/Ml 2ml Vial) 125 mg IVP X1 ONE Stop: 05/08/25 22:20 Last Admin: 05/08/25 22:52 Dose: 125 mg Ondansetron HCl (Ondansetron Inj 2 Mg/Ml Inj 2 Ml) 4 mg IVP X1 ONE; Protocol Stop: 05/08/25 22:29 Last Admin: 05/08/25 23:00 Dose: 4 mg Sodium Chloride (Sodium Chloride Rt 10% 15 Ml Nebu) 5 ml INH X1 ONE Stop: 05/08/25 23:17 Last Admin: 05/09/25 00:36 Dose: 5 ml Assessment & Plan Plan This is a 59 year old male patient with past medical history of HIV ( on Davato since 2009) last CD4 count 110 in 2022 , Hypothyrodism ,CKD with shortness of breath and fever. He was admitted for Acute Hypoxic Respiratory Failure. # Acute Hypoxic Respiratory Failure # Sepsis - secondary to PNA. # ? Pneumocystis Pneumonia - Shortness of breath , fever WBC -14.6 ,CRP-20.1, Procal-7.15 , ABG- SpO2 -64, Saturating at 90% on 10L of O2. CT scan shows B/L alveolar opacities.Patient came to the ED hypoxic and required BiPaP at that time. Consider starting TMP-SmX for pneumocystis pneumonia . - Scheduled on [employer] Coverage- Cefepime,1g,Doxy 100mg BID. - Oxygen supplementation. - IV Methylprednisone- low oxygen Spo2 and increased A-a gradient. - Consulted . #HIV Day team to Continue Dovato and prophylaxis based on CD4 count. # Hypothyrodism: Started home medications -Levothyroxine 150 mcg. # pulmonary nodule CT of the neck 12/14/[address] of the chest showing new pulmonary nodule left upper lobe 18 mm. Follow up outpatient # Depression: -Continue Home Medication Venlafaxine #Polysubstance Use - Counselling recommended Code status: Full DVT prophylaxis: Heparin Diet: Regular Lines: PIV Supplemental O2: OXymask on 10L Disposition: MED-TELE I discussed and reviewed this case with my senior and my attending Dr. Bejarano. Jay Mccarty MD PGY1
[2025-05-09 03:43] LABS: Amphetamine/Methamp Scrn,U Positive (Negative); Barbiturate Screen,Urine Negative (Negative); Benzodiazepines Screen,Urine Negative (Negative); Benzoylecgonine Screen, Ur Negative (Negative); Fentanyl Screen,Urine Negative (Negative); Opiate Screen,Urine Negative (Negative); THC Screen,Urine Positive (Negative)
[2025-05-09] MEDS: metroNIDAZOLE/NS 500 MG IVPB 500 MG/100 ML BAG 200 MG IV (04:28)
[2025-05-09] MEDS: RINGERS LACTATED 1000 ML 1,000 ML 60 ML IV (04:29)
[2025-05-09 05:22] LABS: Basophils # (Auto) 0.0 Thou/mm3 (0.0-0.2); Basophils % (Auto) 0 % (0-2.5); Eosinophils # (Auto) 0.0 Thou/mm3 (0.0-0.5); Eosinophils % (Auto) 0 % (0-10); Hematocrit 35.9 % (41.0-53.0); Hemoglobin 11.6 g/dL (13.5-16.0); Immature Granulocytes Auto 0.27 Thou/mm3 (0.00-0.00); Lymphocytes # (Auto) 0.9 Thou/mm3 (1.0-4.8); Lymphocytes % (Auto) 9 % (10-50); Mean Corpuscular HGB Conc 32.3 g/dl (31.0-37.0); Mean Corpuscular Hemoglobin 29.3 pg (25.0-35.0); Mean Corpuscular Volume 91 fL (80-100); Monocytes # (Auto) 0.3 Thou/mm3 (0.0-0.8); Monocytes % (Auto) 3 % (0-12); Neutrophils # (Auto) 9.0 Thou/mm3 (1.8-7.7); Neutrophils % (Auto) 86 % (37-80); Nucleated Red Blood Cell # 0.00 Thou/mm3 (0.00-0.00); Nucleated Red Blood Cell % 0 /100 WBC (0); Platelet Count 168 Thou/mm3 (140-440); RDW Standard Deviation 56.9 fL (35.1-43.9); Red Blood Count 3.96 Miln/mm3 (4.50-5.90); White Blood Count 10.5 Thou/mm3 (3.8-10.6)
[2025-05-09 06:28] LABS: Alanine Aminotransferase 10 U/L (10-49); Albumin, Serum 4.0 gm/dL (3.5-5.0); Albumin/Globulin Ratio 1.4 (1.2-2.2); Alkaline Phosphatase 71 U/L (46-116); Anion Gap 10 (7-16); Aspartate Amino Transferase 21 U/L (0-34); BUN/Creatinine Ratio 20 Ratio (12-20); Bilirubin,Total 0.3 mg/dL (0.3-1.2); Blood Urea Nitrogen 30 mg/dL (9-23); Calcium 8.9 mg/dL (8.3-10.6); Calcium (Corrected) 8.9 mg/dL (8.5-10.1); Carbon Dioxide 20.0 mMol/L (20.0-31.0); Chloride 111 mMol/L (98-107); Creatinine (Component) 1.5 mg/dL (0.6-1.3); Estimated Creatinine Clearance 55.4 mL/min (>60); Globulin 2.9 gm/dL (2.3-3.5); Glucose 128 mg/dL (74-106); Magnesium 1.9 mg/dL (1.6-2.6); Osmolality,Calculated 289 (275-295); Potassium 4.4 mMol/L (3.4-5.1); Sodium 141 mMol/L (136-145); Thyroid Stimulating Hormone 10.77 uIU/mL (0.55-4.78); Total Protein 6.9 gm/dL (5.7-8.2); eGFR 54 See Note
--- NOTE | 2025-05-09 08:00 | PC.NURSE ---
Pt. here from home to room 2, pt. states he has been SOB on and off X 3 months, pt. states last night SOB got worse and he had a fever. Pt. states he is tired. Pt. resting comfortably in bed in room 2, no s/s of distress at this time.
[2025-05-09] MEDS: LEVOTHYROXINE SODIUM 125 MCG TABLET PO (08:27)
[2025-05-09] MEDS: CEFEPIME INJ 1 GM in SODIUM CHLORIDE 0.9% (Popper) 50 ML IV (10:13)
[2025-05-09] MEDS: DOXYCYCLINE 100 MG TABLET PO (10:13)
[2025-05-09] MEDS: HEPARIN SOD INJ 5000 UNIT/ML VIAL SC ×2 (10:13→21:57)
[2025-05-09 11:47] LABS: Cocci Serology, IgM Positive (Negative)
[2025-05-09 11:48] LABS: Cocid Sro, CF/ID (UCD) NO CHG* See Sep Rpt
--- NOTE | 2025-05-09 14:47 | ESPR_ITS ---
<Statement entered by Nishant Winslow MD - 05/09/25 17:04> Patient was seen and evaluated at bedside this morning. No acute overnight events. Patient was admitted for acute hypoxic respiratory failure likely secondary to coccidiomycosis pneumonia. 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 His cocci did come back positive therefore fluconazole 400 mg daily was started. Given the patient's susceptibility to PCP we will do Bactrim 2 tablets 3 times daily for PCP coverage and continue with cefepime for now. It was documented that patient has allergy to Bactrim, but on interview with the patient patient stated that he only had some mouth ulcers after Bactrim, benefits outweighed the risk at this time given the possibility of PCP pneumonia and that given that patient is on a controlled environment and gets routine monitoring we will go ahead and start Bactrim with close follow-up. In summary on cefepime, Bactrim, fluconazole, IV methylprednisolone, and Benadryl as needed for allergies. Pending ID recommendations. I have reviewed the note and agree with the resident's assessment & plan with exceptions as below. I have personally reviewed labs, imaging, home meds/prior records, examined the patient, formulated and discussed management plan with my attending Case disclosed with attending Dr. Agustín Winslow PGY2 Disclaimer: Even though this this note was dictated by speech recognition and even though it was carefully revised there may still be minor errors in turbo generator oiler due to voice recognition software. Documentation for date of: 05/09/25 Subjective Subjective Interval history: Overnight, patient admitted. Patient reports 2 months of worsening shortness of breath, weakness, and fatigue. Patient reports slight streaks of bloody sputum yesterday, day of admission. Reports some 2 episodes of fever prior to admission, resolved with Tylenol. Patient continues to be short of breath, saturating 95% on oxy mask 5 L, temporarily the oxygen line was detached and patient desaturated to 73% while conversing. Otherwise denies any other bodily pain. Vitals labs reviewed. WBC 10.5, hemoglobin stable 11.6. Potassium 4.4, bicarb increased from 19-20 and BUN decreased from 35-30. Creatinine also decreased from 0.9-1.5. Cocci positive, pending HIV RNA CD4 count, sputum culture and blood culture. Likely has coccidiomycosis pneumonia. However cannot rule out other opportunistic infections, depending on CD4 count will de-escalate or escalate antibiotics. Started fluconazole 400 mg daily amd continue cefepime and TMP- SMX. Patient is allergic to TMP-SMX and instructed to report any s/e, IV benadryl on board. Continue IV methylprednisolone 40 mg daily due to high O2 requirement. Supplemental O2 as needed. Code status changed to full code as patient is amenable to intubation if necessary, however does not want prolonged intubation if condition is not reversible. Exam Vital Signs Temp Pulse Resp BP Pulse Ox O2 Del Method O2 Flow Rate 98.9 F 64 17 102/62 96 Oxy Mask 7 05/09/25 08:00 05/09/25 08:00 05/09/25 08:00 05/09/25 08:00 05/09/25 08:00 05/09/25 08:00 05/09/25 08:00 FiO2 100 05/08/25 23:14 Narrative Exam GENERAL: AOx3, teary HEENT: NC/AT, mucous membranes moist, bilateral sclera anicteric CARDIOVASCULAR: regular rate and rhythm, S1/S2 present, no murmurs appreciated PULMONARY: diminished breath sounds bilaterally, crackles bilateral bases ABDOMINAL: soft, non-tender, non-distended, no rebound/guarding, bowel sounds present EXTREMITIES: no peripheral edema SKIN: warm and dry, several small scabbed lesions various healing stages on BUE on forearms, BLE on shins, L ear, upper back NEURO: CN II-XII grossly intact, no focal deficits, alert, following commands Objective Labs 05/09/25 04:36 05/09/25 04:36 Labs: Laboratory Results - last 24 hr 05/08/25 05/08/25 05/09/25 22:10 22:30 00:32 WBC 14.6 H RBC 3.95 L Hgb 11.4 L Hct 35.1 L MCV 89 MCH 28.9 MCHC 32.5 RDW Std Deviation 54.4 H Plt Count 187 Neut % (Auto) 74 Lymph % (Auto) 18 Garfield % (Auto) 7 Eos % (Auto) 0 Baso % (Auto) 0 Neut # (Auto) 10.9 H Lymph # (Auto) 2.6 Garfield # (Auto) 1.0 H Eos # (Auto) 0.0 Baso # (Auto) 0.0 Immature Gran # (Auto) 0.16 H Absolute Nucleated RBC 0.00 Immature Gran % 1 H Nucleated RBC % 0 ESR 14 D-Dimer 1290 H Puncture Site Right Radial ABG pH 7.37 ABG pCO2 31 L ABG pO2 64 L ABG HCO3 18 L ABG O2 Saturation 88 L ABG Base Excess -7 L FiO2 13 Sodium 135 L Potassium 3.8 Chloride 106 Carbon Dioxide 19.4 L Anion Gap 10 BUN 35 H Creatinine 1.9 H Estim Creat Clear Calc 43.8 L eGFR 40 L BUN/Creatinine Ratio 18 Glucose 100 Calculated Osmolality 278 Lactic Acid 1.8 Calcium 9.1 Corrected Calcium 9.1 Magnesium 1.3 L Total Bilirubin 0.5 Direct Bilirubin 0.2 AST 21 ALT 10 Alkaline Phosphatase 73 Troponin I < 0.020 C-Reactive Prot, Quant 20.1 H B-Natriuretic Peptide 316 H Total Protein 6.9 Albumin 4.1 Globulin 2.8 Albumin/Globulin Ratio 1.5 Beta-Hydroxybutyrate/Acetoacetate 0.8 H Procalcitonin 7.15 H TSH 38.13 H Free T4 0.61 L Free T3 pg/dL 1.2 L Ur Collection Type Urine Color Urine Clarity Urine pH Ur Specific [place] Urine Protein Urine Glucose (UA) Urine Ketones Urine Blood Urine Nitrite Urine Bilirubin Urine Urobilinogen (Auto) Ur Leukocyte Esterase Urine RBC Urine WBC Ur Squamous Epith Cells Urine Bacteria Ur Culture Indicated? Urine Opiates Screen Urine Fentanyl Screen Ur Barbiturates Screen U Amphetamin/Meth Scrn U Benzodiazepines Scrn U Cocaine Metab Screen U Marijuana (THC) Screen C[facility]ioides [facility] Result 05/09/25 05/09/25 05/09/25 02:12 04:36 05:58 WBC 10.5 RBC 3.96 L Hgb 11.6 L Hct 35.9 L MCV 91 MCH 29.3 MCHC 32.3 RDW Std Deviation 56.9 H Plt Count 168 Neut % (Auto) 86 H Lymph % (Auto) 9 L Garfield % (Auto) 3 Eos % (Auto) 0 Baso % (Auto) 0 Neut # (Auto) 9.0 H Lymph # (Auto) 0.9 L Garfield # (Auto) 0.3 Eos # (Auto) 0.0 Baso # (Auto) 0.0 Immature Gran # (Auto) 0.27 H Absolute Nucleated RBC 0.00 Immature Gran % 3 H Nucleated RBC % 0 ESR D-Dimer Puncture Site ABG pH ABG pCO2 ABG pO2 ABG HCO3 ABG O2 Saturation ABG Base Excess FiO2 Sodium 141 Potassium 4.4 D Chloride 111 H Carbon Dioxide 20.0 Anion Gap 10 BUN 30 H Creatinine 1.5 H Estim Creat Clear Calc 55.4 L eGFR 54 L BUN/Creatinine Ratio 20 Glucose 128 H Calculated Osmolality 289 Lactic Acid Calcium 8.9 Corrected Calcium 8.9 Magnesium 1.9 Total Bilirubin 0.3 Direct Bilirubin AST 21 ALT 10 Alkaline Phosphatase 71 Troponin I C-Reactive Prot, Quant B-Natriuretic Peptide Total Protein 6.9 Albumin 4.0 Globulin 2.9 Albumin/Globulin Ratio 1.4 Beta-Hydroxybutyrate/Acetoacetate Procalcitonin TSH 10.77 H D Free T4 Free T3 pg/dL Ur Collection Type Catheter Urine Color Lt-Yellow Urine Clarity Clear Urine pH 6.0 Ur Specific [place] 1.017 Urine Protein Trace Urine Glucose (UA) Negative Urine Ketones Negative Urine Blood Negative Urine Nitrite Negative Urine Bilirubin Negative Urine Urobilinogen (Auto) Negative Ur Leukocyte Esterase Negative Urine RBC 1 Urine WBC < 1 Ur Squamous Epith Cells 0 Urine Bacteria None Ur Culture Indicated? Not Indicated Urine Opiates Screen Negative Urine Fentanyl Screen Negative Ur Barbiturates Screen Negative U Amphetamin/Meth Scrn Positive A U Benzodiazepines Scrn Negative U Cocaine Metab Screen Negative U Marijuana (THC) Screen Positive A Coccidioides IgM Ab Misc Test Result Cancelled 05/09/25 05:58 WBC RBC Hgb Hct MCV MCH MCHC RDW Std Deviation Plt Count Neut % (Auto) Lymph % (Auto) Garfield % (Auto) Eos % (Auto) Baso % (Auto) Neut # (Auto) Lymph # (Auto) Garfield # (Auto) Eos # (Auto) Baso # (Auto) Immature Gran # (Auto) Absolute Nucleated RBC Immature Gran % Nucleated RBC % ESR D-Dimer Puncture Site ABG pH ABG pCO2 ABG pO2 ABG HCO3 ABG O2 Saturation ABG Base Excess FiO2 Sodium Potassium Chloride Carbon Dioxide Anion Gap BUN Creatinine Estim Creat Clear Calc eGFR BUN/Creatinine Ratio Glucose Calculated Osmolality Lactic Acid Calcium Corrected Calcium Magnesium Total Bilirubin Direct Bilirubin AST ALT Alkaline Phosphatase Troponin I C-Reactive Prot, Quant B-Natriuretic Peptide Total Protein Albumin Globulin Albumin/Globulin Ratio Beta-Hydroxybutyrate/Acetoacetate Procalcitonin TSH Free T4 Free T3 pg/dL Ur Collection Type Urine Color Urine Clarity Urine pH Ur Specific [place] Urine Protein Urine Glucose (UA) Urine Ketones Urine Blood Urine Nitrite Urine Bilirubin Urine Urobilinogen (Auto) Ur Leukocyte Esterase Urine RBC Urine WBC Ur Squamous Epith Cells Urine Bacteria Ur Culture Indicated? Urine Opiates Screen Urine Fentanyl Screen Ur Barbiturates Screen U Amphetamin/Meth Scrn U Benzodiazepines Scrn U Cocaine Metab Screen U Marijuana (THC) Screen Coccidioides IgM Ab Misc Test Result Cancelled ABG Interpretation ABG results: 05/08/25 22:30 ABG pH 7.37 ABG pCO2 31 L ABG pO2 64 L ABG HCO3 18 L ABG O2 Saturation 88 L ABG Base Excess -7 L Quality Measures Quality Measures none Assessment & Plan Assessment Current Active Medications: Generic Name Dose Route Start Last Admin Trade Name Freq PRN Reason Stop Dose Admin Acetaminophen 650 mg 05/09/25 03:17 Acetaminophen 325 Mg Tablet PO 06/08/25 03:16 Q6H PRN Fever >100.4 Acetaminophen 650 mg 05/09/25 03:17 Acetaminophen 325 Mg Tablet PO 06/08/25 03:16 Q6H PRN PAIN SCALE 1-3 (mild Albuterol/Ipratropium 3 ml 05/09/25 07:00 Albuterol/Ipratropium (Duoneb) Rt Kelly 3 Ml Nebu INH 06/08/25 06:59 Q6HRRT HUSSEIN (Dolutegravir- 0 ea 05/09/25 13:45 Lamivudine [Dovato] PO 06/08/25 13:44 50-300 Mg Tablet) DAILY HUSSEIN Diphenhydramine HCl 25 mg 05/09/25 11:45 Diphenhydramine Inj 50 Mg/Ml Vial IVP 06/08/25 11:44 X1 PRN allergic reaction Fluconazole 400 mg 05/09/25 13:55 Fluconazole 100 Mg Tablet PO 05/16/25 13:54 DAILY HUSSEIN Heparin Sodium (Porcine) 5,000 unit 05/09/25 09:00 05/09/25 10:13 Heparin Sod Inj 5000 Unit/Ml Vial SC 05/23/25 08:59 5,000 unit BID HUSSEIN Administration Lactated Ringer's 1,000 mls @ 60 mls/hr 05/09/25 03:15 05/09/25 04:29 Lactated Ringers IV 05/09/25 19:54 60 mls/hr .[id number] HUSSEIN Administration Cefepime HCl 1 gm/ Sodium 50 mls @ 100 mls/hr 05/09/25 09:00 05/09/25 10:13 Chloride IV 05/16/25 08:59 100 mls/hr QDAY HUSSEIN Administration Methylprednisolone Sodium Succinate 40 mg 05/09/25 09:00 05/09/25 10:13 Methylprednisolone Sod Succ 40 Mg/Ml Vial IVP 05/16/25 08:59 40 mg QDAY HUSSEIN Administration Ondansetron HCl 4 mg 05/09/25 03:17 Ondansetron Inj 2 Mg/Ml Inj 2 Ml IVP 06/08/25 03:16 Q6H PRN NAUSEA OR VOMITING Protocol Pantoprazole Sodium 40 mg 05/09/25 14:10 Pantoprazole Inj 40 Mg Vial IVP 06/08/25 14:09 BID HUSSEIN Sennosides 1 tab 05/09/25 03:17 Senna Tablet PO 06/08/25 03:16 QDAY PRN constipation Protocol Trimethoprim/Sulfamethoxazole 2 tab 05/09/25 14:00 Trimethoprim/Sulfa 160/800 Ds Tablet PO 05/27/25 13:59 TID HUSSEIN Venlafaxine HCl 150 mg 05/09/25 11:45 Venlafaxine Xr 37.5 Mg Capcr PO 06/08/25 11:44 QAM [facility] 59M pmhx significant for 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 #Acute Hypoxic Respiratory Failure 2/2 #Coccidiomycosis PNA #HIV on Davato Presented with 2 months of worsening fatigue, weakness, SOB and occasional fevers. Endorses some medication noncompliance of all home medications, missing doses a few times. On admission WBC 14.6, CRP 20.1, Procal 7.15 , ABG- SpO2 -64, saturating at 90% on 10L of O2, requiring BiPAP previously. Previously followed Dr. Corral outpatient however due to insurance issues has not had recent appointment. Previously on dapsone but stopped taking. CXR extensive L lung and R base PNA. CTAP bibasilar pneumonia, splenomegaly 15mm. CTA chest negative for PE. BLE US neg for DVT There is suspicion of PCP given HIV, pending CD4 count and sputum Cx, CAP vs opportunistic infection. 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 Short, with last appointment 04/06/25. Patient reports previously undergoing radiation as he could not tolerate chemotherapy. 12/10/23 PET scan revealed no hypermetabolic oropharyngeal mass but a hypermetabolic pulmonary mass L upper lobe. CT 01/05/24 15mm subcarinal lymph node and spiculated pulmonary mass L upper lobe 18mm. Repeat CT 02/02/25 no significant change with extensive nodular parenchymal disease R lung and R middle lobe, but more prominent nodular parenchymal disease L base including 12mm pulmonary nodule. Plan: - Consider consulting radiation oncology if patient does not improve with abx #HANNA likely prerenal, improving on #CKDIIIa Admission Cr 1.9, baseline 1.2-1.4. Following 2L NS, Cr improved to 1.5. Likely 2/2 poor PO intake and current pulmonary infection. Plan: - CTM Cr - Avoid nephrotoxic agents and renally dose medication - 1L LR and abx as above #Hypothyrodism Plan: - Restart home Levothyroxine 150 mcg # Depression Plan: - Continue home venlafaxine ER 150 mg #Polysubstance use #Methanphetamine use #Tobacco use #Marijuana use UDS on admission positive for methanphetamines in which he smokes and marijuana Plan: - Extensive substance use counselling Hospital management: Lines: PIV Diet: Regular Bowel: Senna prn GI prophylaxis: IV pantoprazole 40 mg BID DVT prophylaxis: heparin q12 Disposition: [facility] for IV and PO abx CODE STATUS: Limited code, no prolonged intubation Plan of care discussed with attending Dr. Randolph, and PGY-2 Dr. Maxwell. Vicenta Meyers DO PGY-1 Internal Medicine Attending Provider Attestation/Addendum I have discussed and was present for the essential components of the history, physical examination, diagnosis, and treatment plan with the resident. I agree with the patient's care as documented by the resident and amended herein by me. Jonny Randolph DO. Although this document has been carefully reviewed, there may still be some phonetic and other typographical errors. These errors are purely grammatical due to imperfections in the software program and should not be construed in any way to compromise the substance of the patient's medical care during this visit. Patient seen and evaluated this AM. 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 Vital signs stable, patient afebrile overnight patient remains on OxyMask 7 L, SpO2 96%. Significant labs including normal WBC, normal platelet count, BMP significant for a BUN of 30 and a creatinine of 1.5 which is downtrending, CRP 20, BNP 316, Pro-Ron 7.15, TSH 10.77 and a free T4 of 0.61 as well as a free T3 of 1.2. Of note, we did test the patient for Coccidioides and was positive for IgM thus far. For the patient's pneumonia, we will treat for bacterial with cefepime, Bactrim for possible PJP also with steroids, Solu-Medrol 40 mg IV daily, and will start fluconazole 400 mg daily for coccidiomycosis. Infectious disease has been consulted, appreciate recommendations and assistance with antibiotic de-escalation. CD4 count is also pending. Will continue home medications as appropriate to include the patient's Dovato which has been submitted to the pharmacy.
[2025-05-09] MEDS: FLUCONAZOLE 100 MG TABLET 400 MG PO (15:01)
[2025-05-09] MEDS: TRIMETHOPRIM/SULFA 160/800 DS TABLET 2 TAB PO ×2 (15:01→21:49)
[2025-05-09] MEDS: VENLAFAXINE XR 37.5 MG CAPCR 150 MG PO (15:02)
[2025-05-09] MEDS: ALBUTEROL/IPRATROPIUM (Duoneb) RT SOL 3 ML NEBU INH (19:20)
[2025-05-10] VITALS (12 sets, daily range): BP systolic 94–122; BP diastolic 50–77; PULSE 61–88; RESP 10–23; TEMP 36.1–36.5; O2SAT 91–99
[2025-05-10] MEDS: ALBUTEROL/IPRATROPIUM (Duoneb) RT SOL 3 ML NEBU INH ×4 (00:32→18:30)
--- NOTE | 2025-05-10 03:07 | PC.NURSE ---
Lab called to report that blood culture is + for gram positive cocci for the aerobic bottle, Dr. Brown was made aware, no new orders for pt at this time, plan of care ongoing.
[2025-05-10 03:35] LABS: Basophils # (Auto) 0.0 Thou/mm3 (0.0-0.2); Basophils % (Auto) 0 % (0-2.5); Eosinophils # (Auto) 0.0 Thou/mm3 (0.0-0.5); Eosinophils % (Auto) 0 % (0-10); Hematocrit 32.6 % (41.0-53.0); Hemoglobin 10.8 g/dL (13.5-16.0); Immature Granulocytes Auto 0.39 Thou/mm3 (0.00-0.00); Lymphocytes # (Auto) 0.5 Thou/mm3 (1.0-4.8); Lymphocytes % (Auto) 5 % (10-50); Mean Corpuscular HGB Conc 33.1 g/dl (31.0-37.0); Mean Corpuscular Hemoglobin 29.8 pg (25.0-35.0); Mean Corpuscular Volume 90 fL (80-100); Monocytes # (Auto) 0.4 Thou/mm3 (0.0-0.8); Monocytes % (Auto) 4 % (0-12); Neutrophils # (Auto) 8.9 Thou/mm3 (1.8-7.7); Neutrophils % (Auto) 87 % (37-80); Nucleated Red Blood Cell # 0.00 Thou/mm3 (0.00-0.00); Nucleated Red Blood Cell % 0 /100 WBC (0); Platelet Count 172 Thou/mm3 (140-440); RDW Standard Deviation 56.3 fL (35.1-43.9); Red Blood Count 3.63 Miln/mm3 (4.50-5.90); White Blood Count 10.2 Thou/mm3 (3.8-10.6)
[2025-05-10 04:01] LABS: Alanine Aminotransferase 9 U/L (10-49); Albumin, Serum 3.8 gm/dL (3.5-5.0); Albumin/Globulin Ratio 1.5 (1.2-2.2); Alkaline Phosphatase 61 U/L (46-116); Anion Gap 9 (7-16); Aspartate Amino Transferase 20 U/L (0-34); BUN/Creatinine Ratio 18 Ratio (12-20); Bilirubin,Total 0.2 mg/dL (0.3-1.2); Blood Urea Nitrogen 23 mg/dL (9-23); Calcium 8.8 mg/dL (8.3-10.6); Calcium (Corrected) 9.0 mg/dL (8.5-10.1); Carbon Dioxide 21.2 mMol/L (20.0-31.0); Chloride 111 mMol/L (98-107); Creatinine (Component) 1.3 mg/dL (0.6-1.3); Estimated Creatinine Clearance 64.0 mL/min (>60); Globulin 2.6 gm/dL (2.3-3.5); Glucose 147 mg/dL (74-106); Magnesium 1.9 mg/dL (1.6-2.6); Osmolality,Calculated 287 (275-295); Phosphorous 1.9 mg/dL (2.4-5.1); Potassium 3.8 mMol/L (3.4-5.1); Sodium 141 mMol/L (136-145); Total Protein 6.4 gm/dL (5.7-8.2); eGFR > 60 See Note
[2025-05-10] MEDS: TRIMETHOPRIM/SULFA 160/800 DS TABLET 2 TAB PO ×2 (05:02→13:05)
--- NOTE | 2025-05-10 08:18 | PC.NURSE ---
Notified MD of pt oxygen saturation of 86-88% on 15L oxymask. Said they will consult with team and call RN back
[2025-05-10] MEDS: CEFEPIME INJ 1 GM in SODIUM CHLORIDE 0.9% (Popper) 50 ML IV (09:29)
[2025-05-10] MEDS: VENLAFAXINE XR 37.5 MG CAPCR 150 MG PO (09:30)
[2025-05-10] MEDS: FLUCONAZOLE 100 MG TABLET 400 MG PO (09:30)
[2025-05-10] MEDS: LEVOTHYROXINE SODIUM 125 MCG, LEVOTHYROXINE SODIUM 25 MCG 150 MCG PO (09:31)
[2025-05-10] MEDS: HEPARIN SOD INJ 5000 UNIT/ML VIAL SC ×2 (09:32→20:29)
--- NOTE | 2025-05-10 11:41 | ESCONSULT_ITS ---
<Statement entered by Ernst Corral MD - 05/15/25 11:53> pt seen with resident. all findings confirmed. see additional notes for details HPI Data of Consult Requesting Physician: Ashwin Randolph DO Admitting Provider: Wu Bejarano MD Attending Provider: Ashwin Randolph DO Primary Care Provider: Physician No Primary/Family Consult Narrative Reason for consult: PNA in the setting of HIV History of present illness: Mr. Gutierrez is a 59 y.o male with PMHx significant for HIV on Dovato since 2009, retromolar trigone cancer, Hypothyrodism ,CKD, Depression and Metamphetamine use who presented to the ED on 05/09/25 with for worsening shortness of breath. Patient states that he has been having shortness of breath and not feeling good for the last few weeks to months. Patient also states that he has not been going to outpatient clinic due to already having refills on his medications. Patient has been taking Dovato and dapsone which was last prescribed by his primary care doctor. Patient does not remember his last tetanus shot, has not had a flu shot recently but has had 3 COVID vaccines. Chest x-ray shows extensive left lung and right base pneumonia and chest CTA shows extensive bilateral pneumonia. Venous Doppler of lower extremity showed no DVT. Patient has been requiring more oxygen, and currently on 30 L and 70% FiO2 on high flow nasal cannula. Patient also has been on IV fluconazole, cefepime, doxycycline, IV methylprednisone, metronidazole as well as a dose of IV Rocephin in the ER. ID was consulted for further recommendations regarding patient's coccidiomycosis, bacteremia in the setting of bilateral pneumonia. Past medical history: As mentioned above Past surgical history: PEG tube that was later removed Allergies: NKDA, possibly to Bactrim however has been tolerating IV Bactrim well, however also been on concurrent steroids here in the hospital. Family history: Noncontributory Social history: Patient used to drink alcohol. Patient does currently smoke tobacco and uses marijuana and methamphetamine. cc:: cc: Ashwin Randolph DO Review of Systems Review of Systems Systems Reviewed: All systems reviewed, normal except as documented Exam Vital Signs Temp Pulse Resp BP Pulse Ox O2 Del Method O2 Flow Rate 97.2 F 63 23 H 94/50 L 98 Oxy Mask 05/10/25 08:00 05/10/25 09:23 05/10/25 09:23 05/10/25 08:00 05/10/25 09:23 05/10/25 08:00 05/10/25 08:00 FiO2 45 05/10/25 09:23 Narrative Exam General Appearance: Pt in moderate acute distress sitting upright, with nasal cannula. HEENT: NC/AT, no scleral icterus, no conjunctival pallor, MMM Lungs: Crackles appreciated more on the left than right base, diffusely diminished breath sounds throughout. CVS: RRR, S1/S2 heard, no murmurs or rubs appreciated ABD: Soft, non-tender, non-distended, BS + in all 4 quadrants EXT: no deformity/edema/lesions/cyanosis/clubbing, radial pulses 2+ BL, DP pulses 2 + BL SKIN: Skin exam normal without any rashes except for various healing scabbed lesions on all extremities Neuro: A&O x 3. No gross neurological deficits. Motor and sensory grossly intact in B/L UL and LL. Psych: Appropriate mood and affect Results Labs 05/12/25 04:45 05/12/25 04:45 Labs: Short CBC 05/10/25 Range/Units 03:06 WBC 10.2 (3.8-10.6) Thou/mm3 Hgb 10.8 L (13.5-16.0) g/dL Hct 32.6 L (41.0-53.0) % Plt Count 172 (140-440) Thou/mm3 BMP 05/10/25 03:06 Sodium 141 Potassium 3.8 D Chloride 111 H Carbon Dioxide 21.2 BUN 23 Creatinine 1.3 Glucose 147 H Calcium 8.8 Liver Function 05/10/25 Range/Units 03:06 Total Bilirubin 0.2 L (0.3-1.2) mg/dL AST 20 (0-34) U/L ALT 9 L (10-49) U/L Alkaline Phosphatase 61 (46-116) U/L Albumin 3.8 (3.5-5.0) gm/dL ABG Interpretation ABG results: 05/08/25 22:30 ABG pH 7.37 ABG pCO2 31 L ABG pO2 64 L ABG HCO3 18 L ABG O2 Saturation 88 L ABG Base Excess -7 L Quality Measures Quality Measures none Medications Home Medications and Allergies Home Medications ?Medication ?Instructions ?Recorded ?Confirmed ?Type dolutegravir 50 mg-lamivudine 300 1 tab PO QDAY 05/09/25 History mg tablet (Dovato) levothyroxine 200 mcg tablet 150 mcg PO QDAY 05/27/21 05/09/25 History omeprazole 20 mg capsule,delayed 20 mg PO QDAY 05/27/ 1 05/09/25 History release venlafaxine 75 mg capsule,extended 150 mg PO QAM 05/2705/09/25 History release 24 hr (Effexor XR) benzonatate 100 mg capsule 100 mg PO TID 05/09/2502/24 History dapsone 100 mg tablet 50 mg PO DAILY 05/09/2502/24 History fluconazole 200 mg tablet 200 mg PO DAILY 05/09/2502/24 History levothyroxine 150 mcg tablet 150 mcg PO .AM 05/09/25 1 History venlafaxine 150 mg 150 mg PO QDAY 05/09/2502/24 History capsule,extended release 24 hr Allergies Allergy/AdvReac Type Severity Reaction Status Date / Time sulfamethoxazole Allergy Severe HIVES Verified 05/08/25 21:57 trimethoprim Allergy Severe HIVES Verified 05/08/25 21:57 Visit Medications Acetaminophen (Acetaminophen 325 Mg Tablet) 650 mg PO Q6H PRN PRN Reason: Fever >100.4 Stop: 06/08/25 03:16 Acetaminophen (Acetaminophen 325 Mg Tablet) 650 mg PO Q6H PRN PRN Reason: PAIN SCALE 1-3 (mild Stop: 06/08/25 03:16 Albuterol/Ipratropium (Albuterol/Ipratropium (Duoneb) Rt Kelly 3 Ml Nebu) 3 ml INH Q6HRRT HUSSEIN Stop: 06/08/25 06:59 Last Admin: 05/10/25 06:43 Dose: 3 ml (Dolutegravir- Lamivudine [Dovato] 50-300 Mg Tablet) 0 ea PO DAILY HUSSEIN Stop: 06/08/25 13:44 Last Admin: 05/10/25 09:29 Dose: 1 tablet Diphenhydramine HCl (Diphenhydramine Inj 50 Mg/Ml Vial) 25 mg IVP X1 PRN PRN Reason: allergic reaction Fluconazole (Fluconazole 100 Mg Tablet) 400 mg PO DAILY HUSSEIN Stop: 05/16/25 13:54 Last Admin: 05/10/25 09:30 Dose: 400 mg Heparin Sodium (Porcine) (Heparin Sod Inj 5000 Unit/Ml Vial) 5,000 unit SC BID HUSSEIN Stop: 05/23/25 08:59 Last Admin: 05/10/25 09:32 Dose: 5,000 unit Cefepime HCl 1 gm/ Sodium (Chloride) 50 mls @ 100 mls/hr IV QDAY HUSSEIN Stop: 05/16/25 08:59 Last Admin: 05/10/25 09:29 Dose: 100 mls/hr Levothyroxine Sodium 125 mcg/ (Levothyroxine Sodium 25 mcg) 150 mcg PO ACBR HUSSEIN Stop: 06/09/25 08:29 Last Admin: 05/10/25 09:31 Dose: 150 mcg Methylprednisolone Sodium Succinate (Methylprednisolone Sod Succ 40 Mg/Ml Vial) 40 mg IVP QDAY HUSSEIN Stop: 05/16/25 08:59 Last Admin: 05/10/25 09:27 Dose: 40 mg Ondansetron HCl (Ondansetron Inj 2 Mg/Ml Inj 2 Ml) 4 mg IVP Q6H PRN; Protocol PRN Reason: NAUSEA OR VOMITING Stop: 06/08/25 03:16 Pantoprazole Sodium (Pantoprazole Inj 40 Mg Vial) 40 mg IVP BID [facility] Stop: 06/08/25 14:09 Last Admin: 05/10/25 09:27 Dose: 40 mg Sennosides (Senna Tablet) 1 tab PO QDAY PRN; Protocol PRN Reason: constipation Stop: 06/08/25 03:16 Trimethoprim/Sulfamethoxazole (Trimethoprim/Sulfa 160/800 Ds Tablet) 2 tab PO TID HUSSEIN Stop: 05/27/25 13:59 Last Admin: 05/10/25 05:02 Dose: 2 tab Venlafaxine HCl (Venlafaxine Xr 37.5 Mg Capcr) 150 mg PO QAM [facility] Stop: 06/08/25 11:44 Last Admin: 05/10/25 09:30 Dose: 150 mg Discontinued Medications Albuterol (Albuterol Rt 2.5 Mg/3 Ml Nebu) 2.5 mg INH X1 ONE Stop: 05/08/25 22:19 Last Admin: 05/08/25 22:54 Dose: 2.5 mg Doxycycline Hyclate (Doxycycline 100 Mg Tablet) 100 mg PO BID HUSSEIN Stop: 05/16/25 08:59 Last Admin: 05/09/25 10:13 Dose: 100 mg Fluconazole (Fluconazole 100 Mg Tablet) 200 mg PO DAILY HUSSEIN Stop: 05/16/25 11:44 Fluconazole (Fluconazole 100 Mg Tablet) 400 mg PO DAILY HUSSEIN Stop: 05/17/25 08:59 Sodium Chloride (Ns) 1,000 mls @ 999 mls/hr IV .Q1H1M ONE Stop: 05/08/25 23:19 Last Infusion: 05/09/25 00:01 Dose: Infused Ceftriaxone Sodium/Dextrose (Rocephin/D5w 1gm Iv Premix) 1 gm in 50 mls @ 100 mls/hr IV X1 ONE Stop: 05/08/25 22:49 Last Infusion: 05/08/25 23:33 Dose: Infused Magnesium Sulfate (Magnesium Sulfate Ivpb) 2 gm in 50 mls @ 25 mls/hr IV X1 ONE Stop: 05/09/25 01:15 Last Infusion: 05/09/25 01:59 Dose: Infused Sodium Chloride (Ns) 1,000 mls @ 999 mls/hr IV .Q1H1M ONE Stop: 05/09/25 01:43 Last Infusion: 05/09/25 01:59 Dose: Infused Azithromycin 500 mg/ Sodium (Chloride) 250 mls @ 250 mls/hr IV X1 ONE Stop: 05/09/25 02:42 Last Infusion: 05/09/25 03:13 Dose: Infused Lactated Ringer's (Lactated Ringers) 1,000 mls @ 60 mls/hr IV .[id number] HUSSEIN Stop: 05/09/25 19:54 Last Admin: 05/09/25 04:29 Dose: 60 mls/hr Metronidazole (Flagyl 500 Mg Iv) 500 mg in 100 mls @ 200 mls/hr IV Q8HR HUSSEIN Stop: 05/16/25 03:22 Metronidazole (Flagyl 500 Mg Iv) 500 mg in 100 mls @ 200 mls/hr IV X1 ONE Stop: 05/09/25 03:59 Last Infusion: 05/09/25 05:00 Dose: Infused Ketorolac Tromethamine (Ketorolac Inj 30 Mg/Ml Vial) 30 mg IVP X1 ONE Stop: 05/08/25 22:20 Last Admin: 05/08/25 22:52 Dose: 30 mg Levothyroxine Sodium (Levothyroxine Sodium 125 Mcg Tablet) 125 mcg PO X1 ONE Stop: 05/09/25 06:31 Last Admin: 05/09/25 08:27 Dose: 125 mcg Levothyroxine Sodium (Levothyroxine Sodium 100 Mcg Tablet) 150 mcg PO QDAY HUSSEIN Stop: 06/09/25 08:59 Methylprednisolone Sodium Succinate (Methylprednisolone Sod Succ 62.5 Mg/Ml 2ml Vial) 125 mg IVP X1 ONE Stop: 05/08/25 22:20 Last Admin: 05/08/25 22:52 Dose: 125 mg Ondansetron HCl (Ondansetron Inj 2 Mg/Ml Inj 2 Ml) 4 mg IVP X1 ONE; Protocol Stop: 05/08/25 22:29 Last Admin: 05/08/25 23:00 Dose: 4 mg (Dolutegravir- Lamivudine [Dovato] 50-300 Mg Tablet) 1 ea PO QDAY HUSSEIN; Protocol Stop: 06/08/25 11:44 Sodium Chloride (Sodium Chloride Rt 10% 15 Ml Nebu) 5 ml INH X1 ONE Stop: 05/08/25 23:17 Last Admin: 05/09/25 00:36 Dose: 5 ml Assessment & Plan Plan Mr. Gutierrez is a 59 y.o male with PMHx significant for HIV on Dovato since 2009, retromolar trigone cancer, Hypothyrodism ,CKD, Depression and Metamphetamine use who presented to the ED on 05/09/25 with for worsening shortness of breath and admitted for further management of cocci pneumonia in the setting of HIV. ID was consulted for further recommendations regarding patient's coccidiomycosis, bacteremia in the setting of bilateral pneumonia. #Cocci pneumonia #Staphylococcus aureus bacteremia in 1 out of 2 bottles Patient presented to the ER initially with severe shortness of breath. Patient states that he has not been feeling well for few weeks to months. Patient's cocci IgM level came back positive and and was being given fluconazole. Patient also found to have positive GPC growing in 1 out of 2 bottles. Repeat blood cultures grew positive for GPC in 1 out of 2 bottles. First antibiogram shows sensitivity to most antibiotics except for tetracycline. Will de-escalate to IV ceftriaxone 1 g daily. #Uncontrolled HIV #Hx of HIV,previously treated Patient has been on home dapsone and Dovato and is not compliant with taking his medications daily. Patient also has not had much follow-up in the [facility] clinics. CD4 count 2 years ago was 117. Patient is positive for syphilis and positive for hep C. Pending HIV viral load and T.pallidum. Based on patient's previous CD4 count, we will start patient on Bactrim for PCP prophylaxis. Will have to consider adding azithromycin or rifabutin CD count level is 100 4 Mycobacterium avium complex prophylaxis. In addition due to patient's underlying pneumonia, patient may have PCP pneumonia and will start patient on Amphotericin IV which should be given with maintenance fluids prior and after infusion as well as prednisone 40 mg twice daily. Duration will depend on patient's overall symptoms and further labs. 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 Shayna Talyor MD PGY-3
--- NOTE | 2025-05-10 14:30 | ESPR_ITS ---
<Statement entered by Nishant Winslow MD - 05/10/25 15:53> Patient was seen and evaluated at bedside this morning. No acute overnight events. This morning patient was having a little bit more difficulty breathing and his O2 requirements increased. Given this patient was placed on BiPAP and transition to high flow nasal cannula. Labs were otherwise unremarkable. ID saw the patient and switched to amphotericin B from fluconazole and Rocephin. Started on prednisone 40 mg twice daily. Also restart patient's levothyroxine. No other complaints at this time. General: A/O x3, mild respiratory distress Eyes: PERRL, EOMI. Anicteric, vision grossly intact. Ears: No ear pain, no ear discharge, Hearing grossly intact. Nose: No nasal discharge. Mouth/Throat: Dry mucous membranes, no dentation, no redness, no lesions. Neck: Neck supple, non-tender, no cervical lymphadenopathy. Lungs: Decreased in lower L lobe and mild rhonchi on R side, No accessory muscle use. on HFNC Cardio: Normal S1/S2, regular rhythm, no murmurs, no JVD or carotid bruits. Abdomen: Soft, non-tender, no palpable masses, peristalsis present, no guarding or rebound. Extremities: Symmetrical, no significant deformities, no peripheral edema , non-tender, peripheral pulses presents. Skin: No rashes, no lesions, warm to touch. Neuro: No focal neurological deficits. motor and sensory intact. Psych: Cooperative, appropriate mood and effect. I have reviewed the note and agree with the medical student's assessment & plan with exceptions as below. I have personally reviewed labs, imaging, home meds/prior records, examined the patient, formulated and discussed management plan with my attending Nishant Winslow PGY2 Disclaimer: Even though this this note was dictated by speech recognition and even though it was carefully revised there may still be minor errors in nutrition aide due to voice recognition software. Documentation for date of: 05/10/25 Subjective Subjective Interval history: Spoke at length with pt and nurse for updates. Overnight, no acute events. Pt reports no BM in last 3 days. This morning he continues to endorse SOB, cough. Otherwise denies fever/chills, n/v/d, chest pain, abdominal pain, dysuria, constipation. Notably today pt O2 requirements increased on oxygen mask and he was placed on BIPAP with excellent effect. His O2 requirements improved and he was weaned back to HFNC satting 95% on 30L/min 70%O2. ROS negative except as noted above. Exam Vital Signs Temp Pulse Resp BP Pulse Ox O2 Del Method O2 Flow Rate 97.2 F 63 23 H 94/50 L 98 Oxy Mask 10 05/10/25 08:00 05/10/25 09:23 05/10/25 09:23 05/10/25 08:00 05/10/25 09:23 05/10/25 08:00 05/10/25 08:00 FiO2 45 05/10/25 09:23 Narrative Exam General: A/O x3, no acute distress Eyes: PERRL, EOMI. Anicteric, vision grossly intact. Ears: No ear pain, no ear discharge, Hearing grossly intact. Nose: No nasal discharge. Mouth/Throat: Moist mucous membranes, no redness, no lesions. Neck: Neck supple, non-tender, no cervical lymphadenopathy. Lungs: Improving but still diminished breath sounds b/l, bibasial crackles no accessory muscle use. Cardio: Normal S1/S2, regular rate and rhythm, no murmurs, no JVD Abdomen: Soft, non-tender, no palpable masses, peristalsis present, no guarding or rebound. Extremities: Symmetrical, no significant deformities, no peripheral edema , non-tender, peripheral pulses presents. Skin: No rashes, warm to touch. several small scabbed lesions various healing stages on BUE on forearms, BLE on shins, L ear, upper back Neuro: No focal neurological deficits. motor and sensory intact Psych: Cooperative, appropriate mood and effect. Objective Labs 05/11/25 04:27 05/11/25 04:27 Labs: Laboratory Results - last 24 hr 05/10/25 03:06 WBC 10.2 RBC 3.63 L Hgb 10.8 L Hct 32.6 L MCV 90 MCH 29.8 MCHC 33.1 RDW Std Deviation 56.3 H Plt Count 172 Neut % (Auto) 87 H Lymph % (Auto) 5 L [place] % (Auto) 4 Eos % (Auto) 0 Baso % (Auto) 0 Neut # (Auto) 8.9 H Lymph # (Auto) 0.5 L [place] # (Auto) 0.4 Eos # (Auto) 0.0 Baso # (Auto) 0.0 Immature Gran # (Auto) 0.39 H Absolute Nucleated RBC 0.00 Immature Gran % 4 H Nucleated RBC % 0 Sodium 141 Potassium 3.8 D Chloride 111 H Carbon Dioxide 21.2 Anion Gap 9 BUN 23 Creatinine 1.3 Estim Creat Clear Calc 64.0 eGFR > 60 BUN/Creatinine Ratio 18 Glucose 147 H Calculated Osmolality 287 Calcium 8.8 Corrected Calcium 9.0 Phosphorus 1.9 L Magnesium 1.9 Total Bilirubin 0.2 L AST 20 ALT 9 L Alkaline Phosphatase 61 Total Protein 6.4 Albumin 3.8 Globulin 2.6 Albumin/Globulin Ratio 1.5 ABG Interpretation ABG results: 05/08/25 22:30 ABG pH 7.37 ABG pCO2 31 L ABG pO2 64 L ABG HCO3 18 L ABG O2 Saturation 88 L ABG Base Excess -7 L Quality Measures Quality Measures none Assessment & Plan Assessment Current Active Medications: Generic Name Dose Route Start Last Admin Trade Name Freq PRN Reason Stop Dose Admin Acetaminophen 650 mg 05/09/25 03:17 Acetaminophen 325 Mg Tablet PO 06/08/25 03:16 Q6H PRN Fever >100.4 Acetaminophen 650 mg 05/09/25 03:17 Acetaminophen 325 Mg Tablet PO 06/08/25 03:16 Q6H PRN PAIN SCALE 1-3 (mild Albuterol/Ipratropium 3 ml 05/09/25 07:00 05/10/25 13:18 Albuterol/Ipratropium (Duoneb) Rt Kelly 3 Ml Nebu INH 06/08/25 06:59 3 ml Q6HRRT HUSSEIN Administration (Dolutegravir- 0 ea 05/09/25 13:45 05/10/25 09:29 Lamivudine [Dovato] PO 06/08/25 13:44 1 tablet 50-300 Mg Tablet) DAILY HUSSEIN Administration Diphenhydramine HCl 25 mg 05/09/25 11:45 Diphenhydramine Inj 50 Mg/Ml Vial IVP X1 PRN allergic reaction Fluconazole 400 mg 05/09/25 13:55 05/10/25 09:30 Fluconazole 100 Mg Tablet PO 05/16/25 13:54 400 mg DAILY HUSSEIN Administration Heparin Sodium (Porcine) 5,000 unit 05/09/25 09:00 05/10/25 09:32 Heparin Sod Inj 5000 Unit/Ml Vial SC 05/23/25 08:59 5,000 unit BID HUSSEIN Administration Cefepime HCl 1 gm/ Sodium 50 mls @ 100 mls/hr 05/09/25 09:00 05/10/25 09:29 Chloride IV 05/16/25 08:59 100 mls/hr QDAY HUSSEIN Administration Levothyroxine Sodium 125 mcg/ 150 mcg 05/10/25 08:30 05/10/25 09:31 Levothyroxine Sodium 25 mcg PO 06/09/25 08:29 150 mcg ACBR HUSSEIN Administration Methylprednisolone Sodium Succinate 40 mg 05/09/25 09:00 05/10/25 09:27 Methylprednisolone Sod Succ 40 Mg/Ml Vial IVP 05/16/25 08:59 40 mg QDAY HUSSEIN Administration Ondansetron HCl 4 mg 05/09/25 03:17 Ondansetron Inj 2 Mg/Ml Inj 2 Ml IVP 06/08/25 03:16 Q6H PRN NAUSEA OR VOMITING Protocol Pantoprazole Sodium 40 mg 05/09/25 14:10 05/10/25 09:27 Pantoprazole Inj 40 Mg Vial IVP 06/08/25 14:09 40 mg BID HUSSEIN Administration Sennosides 1 tab 05/09/25 03:17 Senna Tablet PO 06/08/25 03:16 QDAY PRN constipation Protocol Trimethoprim/Sulfamethoxazole 2 tab 05/09/25 14:00 05/10/25 13:05 Trimethoprim/Sulfa 160/800 Ds Tablet PO 05/27/25 13:59 2 tab TID HUSSEIN Administration Venlafaxine HCl 150 mg 05/09/25 11:45 05/10/25 09:30 Venlafaxine Xr 37.5 Mg Capcr PO 06/08/25 11:44 150 mg QAM HUSSEIN Administration Plan [facility] 59M PMH significant for sexually transmitted HIV (Davato since 2022 CD4 110), CKDIIIa, hypothyroidism presented to [facility] ED 05/08 for worsening SOB, generalized weakness and fever, admitted for acute hypoxic respiratory failure 2/2 coccidiomycosis PNA, found to have HANNA. #Acute Hypoxic Respiratory Failure 2/2 #Coccidiomycosis PNA #?opportunistic pulmary infection, possible PJP #HIV on Davato Presented with 2 months of worsening fatigue, weakness, SOB and occasional fevers. Endorses some medication noncompliance of all home medications, missing doses a few times. On admission WBC 14.6, CRP 20.1, Procal 7.15 , ABG- SpO2 -64, saturating at 90% on 10L of O2, requiring BiPAP previously. Previously followed Dr. Corral outpatient however due to insurance issues has not had recent appointment. Previously on dapsone but stopped taking. CXR extensive L lung and R base PNA. CTAP bibasilar pneumonia, splenomegaly 15mm. CTA chest negative for PE. BLE US neg for DVT There is suspicion of PCP given HIV, pending CD4 count and sputum Cx, CAP vs opportunistic infection. Additionally Cocci panel came back positive. Azithromycin (05/08), Ceftriaxone (05/08), Metronidazole (05/08), Doxy (05/09) s/p 2L NS in ED, methylpred 125 mg x1, Duoneb x1 - Cont fluconazole 400 mg QD - Cefepime (05/09- ) and start TMP-SMX 2 tab TID for PCP PNA coverage - Reports allergy to TMP/SMX years ago with mouth sores, IV benadryl prn in place - Continue IV Methylprednisone 40 mg QD and supplemental O2 as needed to keep SpO2 >90%, currently satting well on HFNC 30L/min 70%O2 - ID consulted, recs appreciated - LR discontinued - F/u CD4 count, HIV RNA, sputum Cx, BCx #Stage IV tetromolar trigone cancer (2016) s/p radiation #Upper left lobe 18 mm pulmonary nodule #Chronic nodular parenchymal disease Follows Dr. Short, with last appointment 04/06/25. Patient reports previously undergoing radiation as he could not tolerate chemotherapy. 12/10/23 PET scan revealed no hypermetabolic oropharyngeal mass but a hypermetabolic pulmonary mass L upper lobe. CT 01/05/24 15mm subcarinal lymph node and spiculated pulmonary mass L upper lobe 18mm. Repeat CT 02/02/25 no significant change with extensive nodular parenchymal disease R lung and R middle lobe, but more prominent nodular parenchymal disease L base including 12mm pulmonary nodule. - Consider consulting radiation oncology if patient does not improve with abx #HANNA likely prerenal, improving on #CKDIIIa Admission Cr 1.9, baseline 1.2-1.4. Following 2L NS, Cr improved to 1.5. Likely 2/2 poor PO intake and current pulmonary infection. - CTM Cr - Avoid nephrotoxic agents and renally dose medication - Abx as above #Hypothyrodism - Continue home Levothyroxine 150 mcg #Depression - Continue home venlafaxine ER 150 mg #Polysubstance use #Methanphetamine use #Tobacco use #Marijuana use UDS on admission positive for methanphetamines in which he smokes and marijuana - Extensive substance use counselling Hospital management: Lines: PIV Diet: Regular Bowel: Senna prn GI prophylaxis: IV pantoprazole 40 mg BID DVT prophylaxis: heparin q12 Disposition: [facility] for IV and PO abx CODE STATUS: full code Plan of care discussed with attending Dr. Randolph, and PGY-2 Dr. Maxwell. Suleiman CAMPBELL Attending Provider Attestation/Addendum I have discussed and was present for the essential components of the history, physical examination, diagnosis, and treatment plan with the resident. I agree with the patient's care as documented by the resident and amended herein by me. Jonny Randolph DO. Although this document has been carefully reviewed, there may still be some phonetic and other typographical errors. These errors are purely grammatical due to imperfections in the software program and should not be construed in any way to compromise the substance of the patient's medical care during this visit.
--- NOTE | 2025-05-10 14:54 | PC.SS ---
SS spoke to patient who is alert/oriented. Patient was able to verify demographics. Patient was admitted for sob. Patient states he lives alone. Patient states he's independent with ADL's. No DME. No resp. devices. Patient states he currently does not have a p.c.p. but the last one he seen was Dr. Garces. in January. Patient follows with Dr. Short at [facility] every 6 months. Patient states he has also been seen by Dr. Corral for o/p services. Patient tox report was positive for meth and thc. Patient verbalized he has mental health hx: depression and substance abuse hx: Patient states he's been to rehab years ago. Self referral. Last visit was a year ago. Patient states his sister provides transportation assistance to all appointments. Patient prefers to d/c home upon discharge. Pharmacy: [facility] Alt medical decision maker: Sister, Sherri Martin,
--- NOTE | 2025-05-10 15:15 | PD.IDPROG ---
Subjective Subjective Interval history: visits limited in past. not an insurance issue as suggested in notes but a decision by pt. he states he has been getting meds from his primary. if so, that is good. but he has a long hx of non adherence. his chest imaging is abnormal mostly on one side Exam Vital Signs Temp Pulse Resp BP Pulse Ox O2 Del Method O2 Flow Rate 97.2 F 75 22 H 94/50 L 96 Oxy Mask 30 05/10/25 08:00 05/10/25 13:17 05/10/25 13:17 05/10/25 08:00 05/10/25 13:17 05/10/25 08:00 05/10/25 13:17 FiO2 70 05/10/25 13:17 Narrative Exam pneumonia. pjp vs cocci . hard to tell. Objective - Internal Medicine Labs 05/10/25 03:06 05/10/25 03:06 Labs: Laboratory Results - last 24 hr 05/10/25 03:06 WBC 10.2 RBC 3.63 L Hgb 10.8 L Hct 32.6 L MCV 90 MCH 29.8 MCHC 33.1 RDW Std Deviation 56.3 H Plt Count 172 Neut % (Auto) 87 H Lymph % (Auto) 5 L [place] % (Auto) 4 Eos % (Auto) 0 Baso % (Auto) 0 Neut # (Auto) 8.9 H Lymph # (Auto) 0.5 L [place] # (Auto) 0.4 Eos # (Auto) 0.0 Baso # (Auto) 0.0 Immature Gran # (Auto) 0.39 H Absolute Nucleated RBC 0.00 Immature Gran % 4 H Nucleated RBC % 0 Sodium 141 Potassium 3.8 D Chloride 111 H Carbon Dioxide 21.2 Anion Gap 9 BUN 23 Creatinine 1.3 Estim Creat Clear Calc 64.0 eGFR > 60 BUN/Creatinine Ratio 18 Glucose 147 H Calculated Osmolality 287 Calcium 8.8 Corrected Calcium 9.0 Phosphorus 1.9 L Magnesium 1.9 Total Bilirubin 0.2 L AST 20 ALT 9 L Alkaline Phosphatase 61 Total Protein 6.4 Albumin 3.8 Globulin 2.6 Albumin/Globulin Ratio 1.5 ABG Interpretation ABG results: 05/08/25 22:30 ABG pH 7.37 ABG pCO2 31 L ABG pO2 64 L ABG HCO3 18 L ABG O2 Saturation 88 L ABG Base Excess -7 L Assessment & Plan A&P Narrative hiv and pneumonia with pos bc with gpc. could be staph or more likely pneumococcus given hx. pjp and cocci in ddx will change rx to ampho and rocephin and f/u on thursday as I will be away on thursday. Time Spent With Patient Time: Total time spent is greater than 50% in coordination of care (as documented) at patient's floor/unit and/or counseling patient:
[2025-05-10] MEDS: cefTRIAXone/D5w 1gm IV premix 1 GM/50 ML BAG IV (16:17)
--- NOTE | 2025-05-10 17:12 | ESCONSULT_ITS ---
RE: SEAMUS GARCIA : 1965 DATE OF CONSULTATION: 05/10/2025 REFERRING PHYSICIAN: Dr. Bejarano. REASON FOR CONSULTATION: Bacteremia with positive [place] fever test and mostly unilateral left-sided pneumonia. HISTORY OF PRESENT ILLNESS: He is a 59-year-old with history of poor adherence to medical treatment and HIV-related disease. The patient has not been seen in the clinic for some time because of his own choice. He reports he has been getting his medication from his primary care doctor, which is unusual. I can usually see HIV patients in clinic as they frequently just come in every 6-12 months. He has cancer, so he should likely come in more often, but has not been in regularly for quite some time. PAST MEDICAL HISTORY: His medical problems include the cancer, apparently oral cancer of some sort. PAST SURGICAL HISTORY: Includes only feeding tube that was later removed. ALLERGIES: NONE NOTED. IT IS POSSIBLY TO BACTRIM. HE HAS BEEN TOLERATING IV BACTRIM HERE WELL, BUT HAS ALSO BEEN ON STEROIDS. IMMUNIZATIONS: Last tetanus is unknown. I usually give a tetanus shot when I start seeing him, which may have been quite a while ago. He has not been in followup, so his flu shot annually is not given. He has had 3 COVID vaccines and does not recall a pneumococcal either. I usually start with that at the onset and then we redo them when they are 65 if they have pneumonia. A CD4 cell count is pending. We will make sure an HIV viral load is ordered. We will also get some other tests tomorrow. I will check on him on Thursday as I will not be here, but I will also change his antibiotics from cefepime and fluconazole to amphotericin and Rocephin. I will check on him Thursday as I will not be here on Thursday. DT: 15:23:24 TT: 16:44:00 Ref: [id number] - TID: [id number] [facility]
[2025-05-10] MEDS: STERILE WATER IV (17:51)
[2025-05-10] MEDS: WATER IV (17:51)
[2025-05-10] MEDS: DEXTROSE IV (17:51)
[2025-05-10] MEDS: AMPHOTERICIN B LIPOSOME IV (17:51)
[2025-05-10] MEDS: ACETAMINOPHEN 325 MG TABLET 650 MG PO (18:02)
[2025-05-10] MEDS: SODIUM CHLORIDE 0.9% 500 ML 500 ML 125 ML IV (20:18)
[2025-05-11] VITALS (14 sets, daily range): BP systolic 97–117; BP diastolic 55–72; PULSE 58–73; RESP 16–25; TEMP 36.1–36.2; O2SAT 92–99
[2025-05-11] MEDS: ALBUTEROL/IPRATROPIUM (Duoneb) RT SOL 3 ML NEBU INH ×4 (00:23→18:37)
[2025-05-11] MEDS: LEVOTHYROXINE SODIUM 125 MCG, LEVOTHYROXINE SODIUM 25 MCG 150 MCG PO (05:12)
[2025-05-11 05:51] LABS: Basophils # (Auto) 0.0 Thou/mm3 (0.0-0.2); Basophils % (Auto) 0 % (0-2.5); Eosinophils # (Auto) 0.0 Thou/mm3 (0.0-0.5); Eosinophils % (Auto) 0 % (0-10); Hematocrit 33.8 % (41.0-53.0); Hemoglobin 10.7 g/dL (13.5-16.0); Immature Granulocytes Auto 0.35 Thou/mm3 (0.00-0.00); Lymphocytes # (Auto) 0.7 Thou/mm3 (1.0-4.8); Lymphocytes % (Auto) 6 % (10-50); Mean Corpuscular HGB Conc 31.7 g/dl (31.0-37.0); Mean Corpuscular Hemoglobin 28.9 pg (25.0-35.0); Mean Corpuscular Volume 91 fL (80-100); Monocytes # (Auto) 0.5 Thou/mm3 (0.0-0.8); Monocytes % (Auto) 5 % (0-12); Neutrophils # (Auto) 9.6 Thou/mm3 (1.8-7.7); Neutrophils % (Auto) 86 % (37-80); Nucleated Red Blood Cell # 0.00 Thou/mm3 (0.00-0.00); Nucleated Red Blood Cell % 0 /100 WBC (0); Platelet Count 185 Thou/mm3 (140-440); RDW Standard Deviation 57.9 fL (35.1-43.9); Red Blood Count 3.70 Miln/mm3 (4.50-5.90); White Blood Count 11.2 Thou/mm3 (3.8-10.6)
[2025-05-11 06:12] LABS: Alanine Aminotransferase 10 U/L (10-49); Albumin, Serum 4.1 gm/dL (3.5-5.0); Albumin/Globulin Ratio 1.5 (1.2-2.2); Alkaline Phosphatase 66 U/L (46-116); Anion Gap 11 (7-16); Aspartate Amino Transferase 16 U/L (0-34); BUN/Creatinine Ratio 14 Ratio (12-20); Bilirubin,Total 0.2 mg/dL (0.3-1.2); Blood Urea Nitrogen 17 mg/dL (9-23); Calcium 9.4 mg/dL (8.3-10.6); Calcium (Corrected) 9.4 mg/dL (8.5-10.1); Carbon Dioxide 23.4 mMol/L (20.0-31.0); Chloride 108 mMol/L (98-107); Creatinine (Component) 1.2 mg/dL (0.6-1.3); Estimated Creatinine Clearance 69.3 mL/min (>60); Globulin 2.8 gm/dL (2.3-3.5); Glucose 109 mg/dL (74-106); Magnesium 1.9 mg/dL (1.6-2.6); Osmolality,Calculated 285 (275-295); Phosphorous 2.7 mg/dL (2.4-5.1); Potassium 4.4 mMol/L (3.4-5.1); Sodium 142 mMol/L (136-145); Total Protein 6.9 gm/dL (5.7-8.2); eGFR > 60 See Note
[2025-05-11 06:27] LABS: Syphilis Reactive (Nonreactive)
[2025-05-11 06:28] LABS: MHATP/TP-PA* See Sep Rpt
[2025-05-11 06:47] LABS: AFP Non-Pregnant < 1.30 ng/mL (<8.10); Hepatitis A Antibody IgM Non Reactive (Non React); Hepatitis B Core Antibody IgM Non Reactive (Non React); Hepatitis B Surface Antigen Non Reactive (Non React); Hepatitis C Antibody Reactive (Non React)
[2025-05-11 07:00] LABS: Misc Send Out* See Sep Rpt
[2025-05-11] MEDS: VENLAFAXINE XR 37.5 MG CAPCR 150 MG PO (08:14)
[2025-05-11] MEDS: cefTRIAXone/D5w 1gm IV premix 1 GM/50 ML BAG IV (08:14)
[2025-05-11] MEDS: HEPARIN SOD INJ 5000 UNIT/ML VIAL SC ×2 (08:15→20:18)
--- NOTE | 2025-05-11 14:31 | ESPR_ITS ---
<Statement entered by Nishant Winslow MD - 05/11/25 20:16> Patient was seen and evaluated at bedside this morning. No acute overnight events. Patient doing better today. Pending cultures and decreased O2 requirements. Blood culture grew S. Aureus duncan sensitive. Continue current management. I have reviewed the note and agree with the resident's assessment & plan with exceptions as below. I have personally reviewed labs, imaging, home meds/prior records, examined the patient, formulated and discussed management plan with my attending Nishant Winslow PGY2 Disclaimer: Even though this this note was dictated by speech recognition and even though it was carefully revised there may still be minor errors in conflicts analyst due to voice recognition software. Documentation for date of: 05/11/25 Subjective Subjective Interval history: No acute overnight events. Patient seen and examined at bedside. Patient reports shortness of breath improved today. Denies chest pain, fever, chills or nausea or vomiting. Endorses that he previously was treated for hepatitis C as well as syphilis. Labs and vitals reviewed. Patient saturating at 95% on high flow nasal cannula O2 flow rate 25 FiO2 50. WBC count stable 11.2, potassium 4.4, creatinine 1.2, magnesium 1.9. Still pending CMV, HIV, HCV,, beta D glucan, and toxo studies. Per ID, continue amphotericin B, ceftriaxone and prednisone for 100 mg twice daily. Continue to wean off supplemental O2 as tolerated. Exam Vital Signs Temp Pulse Resp BP Pulse Ox O2 Del Method O2 Flow Rate 97.0 F 59 L 18 97/56 L 95 High Flow Nasal Cannula 25 05/11/25 12:00 05/11/25 13:24 05/11/25 13:24 05/11/25 12:00 05/11/25 13:24 05/11/25 12:00 05/11/25 13:24 FiO2 50 05/11/25 13:24 Narrative Exam GENERAL: AOx3, teary HEENT: NC/AT, mucous membranes moist, bilateral sclera anicteric CARDIOVASCULAR: regular rate and rhythm, S1/S2 present, no murmurs appreciated PULMONARY: diminished breath sounds bilaterally, crackles bilateral bases ABDOMINAL: soft, non-tender, non-distended, no rebound/guarding, bowel sounds present EXTREMITIES: no peripheral edema SKIN: warm and dry, several small scabbed lesions various healing stages on BUE on forearms, BLE on shins, L ear, upper back NEURO: CN II-XII grossly intact, no focal deficits, alert, following commands Objective Labs 05/11/25 04:27 05/11/25 04:27 Labs: Laboratory Results - last 24 hr 05/11/25 04:27 WBC 11.2 H RBC 3.70 L Hgb 10.7 L Hct 33.8 L MCV 91 MCH 28.9 MCHC 31.7 RDW Std Deviation 57.9 H Plt Count 185 Neut % (Auto) 86 H Lymph % (Auto) 6 L [place] % (Auto) 5 Eos % (Auto) 0 Baso % (Auto) 0 Neut # (Auto) 9.6 H Lymph # (Auto) 0.7 L [place] # (Auto) 0.5 Eos # (Auto) 0.0 Baso # (Auto) 0.0 Immature Gran # (Auto) 0.35 H Absolute Nucleated RBC 0.00 Immature Gran % 3 H Nucleated RBC % 0 Sodium 142 Potassium 4.4 D Chloride 108 H Carbon Dioxide 23.4 Anion Gap 11 BUN 17 Creatinine 1.2 Estim Creat Clear Calc 69.3 eGFR > 60 BUN/Creatinine Ratio 14 Glucose 109 H Calculated Osmolality 285 Calcium 9.4 Corrected Calcium 9.4 Phosphorus 2.7 Magnesium 1.9 Total Bilirubin 0.2 L AST 16 ALT 10 Alkaline Phosphatase 66 Total Protein 6.9 Albumin 4.1 Globulin 2.8 Albumin/Globulin Ratio 1.5 Tumor Marker AFP < 1.30 Syphilis Serology Reactive A Hepatitis A IgM Ab Non Reactive Hep Bs Antigen Non Reactive Hep B Core IgM Ab Non Reactive Hepatitis C Antibody Reactive A Misc Test Result Cancelled ABG Interpretation ABG results: 05/08/25 22:30 ABG pH 7.37 ABG pCO2 31 L ABG pO2 64 L ABG HCO3 18 L ABG O2 Saturation 88 L ABG Base Excess -7 L Quality Measures Quality Measures none Assessment & Plan Assessment Current Active Medications: Generic Name Dose Route Start Last Admin Trade Name Freq PRN Reason Stop Dose Admin Acetaminophen 650 mg 05/09/25 03:17 Acetaminophen 325 Mg Tablet PO 06/08/25 03:16 Q6H PRN Fever >100.4 Acetaminophen 650 mg 05/09/25 03:17 05/10/25 18:02 Acetaminophen 325 Mg Tablet PO 06/08/25 03:16 650 mg Q6H PRN Administration PAIN SCALE 1-3 (mild Albuterol/Ipratropium 3 ml 05/09/25 07:00 05/11/25 13:24 Albuterol/Ipratropium (Duoneb) Rt Kelly 3 Ml Nebu INH 06/08/25 06:59 3 ml Q6HRRT HUSSEIN Administration (Dolutegravir- 0 ea 05/09/25 13:45 05/11/25 08:14 Lamivudine [Dovato] PO 06/08/25 13:44 1 tablet 50-300 Mg Tablet) DAILY HUSSEIN Administration Diphenhydramine HCl 25 mg 05/09/25 11:45 Diphenhydramine Inj 50 Mg/Ml Vial IVP X1 PRN allergic reaction Heparin Sodium (Porcine) 5,000 unit 05/09/25 09:00 05/11/25 08:15 Heparin Sod Inj 5000 Unit/Ml Vial SC 05/23/25 08:59 5,000 unit BID HUSSEIN Administration Sodium Chloride 500 mls @ 125 mls/hr 05/10/25 15:12 05/11/25 00:18 Ns IV 06/09/25 15:11 Infused .Q4H PRN Infusion after ampho infusion Ceftriaxone Sodium/Dextrose 1 gm in 50 mls @ 100 mls/hr 05/10/25 15:18 05/11/25 08:14 Rocephin/D5w 1gm Iv Premix IV 05/17/25 15:17 100 mls/hr QDAY HUSSEIN Administration Amphotericin B 400 mg/ Sterile 346 mls @ 173 mls/hr 05/10/25 17:15 05/10/25 20:06 Water 96 ml/ Dextrose IV 05/17/25 17:14 Infused QDAY@1500 HUSSEIN Infusion Protocol Sodium Chloride 500 mls @ 125 mls/hr 05/10/25 17:25 Ns IV 06/09/25 15:10 .Q4H PRN pre-ampho infusion Levothyroxine Sodium 125 mcg/ 150 mcg 05/12/25 06:00 Levothyroxine Sodium 25 mcg PO 06/11/25 05:59 ACBR HUSSEIN Ondansetron HCl 4 mg 05/09/25 03:17 Ondansetron Inj 2 Mg/Ml Inj 2 Ml IVP 06/08/25 03:16 Q6H PRN NAUSEA OR VOMITING Protocol Pantoprazole Sodium 40 mg 05/09/25 14:10 05/11/25 08:15 Pantoprazole Inj 40 Mg Vial IVP 06/08/25 14:09 40 mg BID HUSSEIN Administration Prednisone 40 mg 05/10/25 21:00 05/11/25 08:14 Prednisone 20 Mg Tablet PO 05/15/25 12:00 40 mg BID HUSSEIN Administration Sennosides 1 tab 05/09/25 03:17 Senna Tablet PO 06/08/25 03:16 QDAY PRN constipation Protocol Venlafaxine HCl 150 mg 05/09/25 11:45 05/11/25 08:14 Venlafaxine Xr 37.5 Mg Capcr PO 06/08/25 11:44 150 mg QAM HUSSEIN Administration Plan [place] 59M pmhx significant for sexually transmitted HIV (Dav[place] since 2022 CD4 110), hx of hep C (previously treated), CKDIIIa, hypothyroidism presented to [facility] ED 05/08 for worsening SOB, generalized weakness and fever, admitted for acute hypoxic respiratory failure 2/2 coccidiomycosis PNA, found to have HANNA. #Acute Hypoxic Respiratory Failure 2/2 #Coccidiomycosis PNA #HIV on [place] #Hx of Hepatitis C, previously treated Presented with 2 months of worsening fatigue, weakness, SOB and occasional fevers. Endorses some medication noncompliance of all home medications, missing doses a few times. On admission WBC 14.6, CRP 20.1, Procal 7.15 , ABG- SpO2 -64, saturating at 90% on 10L of O2, requiring BiPAP previously. Previously followed Dr. Corral outpatient however due to insurance issues has not had recent appointment. Previously on dapsone but stopped taking. CXR extensive L lung and R base PNA. CTAP bibasilar pneumonia, splenomegaly 15mm. CTA chest negative for PE. BLE US neg for DVT There is suspicion of PCP given HIV, pending CD4 count and sputum Cx, CAP vs opportunistic infection. sputum Cx +staph aureus, BCx 08/04 initially grew staph aureus, however repeat BCx NGTD. Syphilis + with previous syphilis + with + VRDL in 2022. 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 Short, with last appointment 04/06/25. Patient reports previously undergoing radiation as he could not tolerate chemotherapy. 12/10/23 PET scan revealed no hypermetabolic oropharyngeal mass but a hypermetabolic pulmonary mass L upper lobe. CT 01/05/24 15mm subcarinal lymph node and spiculated pulmonary mass L upper lobe 18mm. Repeat CT 02/02/25 no significant change with extensive nodular parenchymal disease R lung and R middle lobe, but more prominent nodular parenchymal disease L base including 12mm pulmonary nodule. Plan: - Consider consulting radiation oncology if patient does not improve with abx #HANNA likely prerenal, improving on #CKDIIIa Admission Cr 1.9, baseline 1.2-1.4. Following 2L NS, Cr improved to 1.5. Likely 2/2 poor PO intake and current pulmonary infection. Plan: - CTM Cr - Avoid nephrotoxic agents and renally dose medication #Hypothyrodism Plan: - Restart home Levothyroxine 150 mcg # Depression Plan: - Continue home venlafaxine ER 150 mg #Polysubstance use #Methanphetamine use #Tobacco use #Marijuana use UDS on admission positive for methanphetamines in which he smokes and marijuana Plan: - Extensive substance use counselling Hospital management: Lines: PIV Diet: Regular Bowel: Senna prn GI prophylaxis: IV pantoprazole 40 mg BID DVT prophylaxis: heparin q12 Disposition: med [facility] for IV abx CODE STATUS: Limited code, no prolonged intubation Plan of care discussed with attending Dr. Randolph, and PGY-2 Dr. Maxwell. Vicenta Meyers, DO PGY-1 Internal Medicine Attending Provider Attestation/Addendum I have discussed and was present for the essential components of the history, physical examination, diagnosis, and treatment plan with the resident. I agree with the patient's care as documented by the resident and amended herein by me. Jonny Randolph DO. Although this document has been carefully reviewed, there may still be some phonetic and other typographical errors. These errors are purely grammatical due to imperfections in the software program and should not be construed in any way to compromise the substance of the patient's medical care during this visit. Patient seen and evaluated this AM. No acute events overnight, vital signs stable, patient afebrile, was on high flow, 30/65 this morning, clinically the patient is much improved since yesterday. He also felt much better. Significant labs included WBC of 11.2, hemoglobin 10.7, chloride 108. As far as serologies go, syphilis was reactive however in the past, hep C antibody reactive, many other infectious serologies pending to include CMV, toxoplasma, trichomonas, etc. CD4 count also pending. In the setting of HIV and confirmed coccidiomycosis and possible PJP, will continue prednisone 40 mg twice daily, Amphotericin and ceftriaxone per infectious disease recommendations. The patient's home Dovato has also been started. Will continue to monitor closely while he is here, likely discharge no earlier than Thursday so we can get an additional follow-up by infectious disease however the patient still needs to be titrated down on his O2.
[2025-05-11 15:36] LABS: CD19 Percentage 7 % (6-29); CD19, Absolute 56 cells/uL (110-660); CD3 Percentage 70 % (57-85); CD3, Absolute 584 cells/uL (840-3060); CD3-CD16+CD56+ % 22 % (4-25); CD3-CD16+CD56+ (Abs) 181 cells/uL (70-760); CD4 Percentage 4 % (30-61); CD4, Absolute 31 cells/uL (490-1740); CD4/CD8 Ratio 0.06 (0.86-5.00); CD8 Percentage 65 % (12-42); CD8, Absolute 554 cells/uL (180-1170)
[2025-05-11] MEDS: DEXTROSE IV (15:36)
[2025-05-11] MEDS: STERILE WATER IV (15:36)
[2025-05-11] MEDS: AMPHOTERICIN B LIPOSOME IV (15:36)
[2025-05-11] MEDS: WATER IV (15:36)
[2025-05-11 17:53] LABS: HCV RNA, PCR <15 NOT DETECTED IU/mL
[2025-05-11] MEDS: SODIUM CHLORIDE 0.9% 500 ML 500 ML 125 ML IV (19:53)
[2025-05-11 20:43] LABS: Influenza A Ag Negative; Influenza B Ag Negative
[2025-05-11 22:06] LABS: HIV-1 RNA, QN PCR NOT DETECTED copies/mL
[2025-05-12] VITALS (15 sets, daily range): BP systolic 101–120; BP diastolic 60–77; PULSE 53–70; RESP 10–24; TEMP 36–36.9; O2SAT 94–100; BMI 26.1
[2025-05-12] MEDS: ALBUTEROL/IPRATROPIUM (Duoneb) RT SOL 3 ML NEBU INH ×4 (01:36→18:22)
[2025-05-12] MEDS: LEVOTHYROXINE SODIUM 125 MCG, LEVOTHYROXINE SODIUM 25 MCG 150 MCG PO (05:11)
[2025-05-12 06:07] LABS: Phosphorous 2.4 mg/dL (2.4-5.1)
[2025-05-12 07:06] LABS: HCV RNA, PCR Log IU <1.18 NOT DETECTED Log IU/mL; HIV-1 RNA, QN PCR Log NOT DETECTED; Lymphocytes, Absolute 841 cells/uL (850-3900)
[2025-05-12 07:42] LABS: Basophils # (Auto) 0.0 Thou/mm3 (0.0-0.2); Basophils % (Auto) 0 % (0-2.5); Eosinophils # (Auto) 0.0 Thou/mm3 (0.0-0.5); Eosinophils % (Auto) 0 % (0-10); Hematocrit 34.0 % (41.0-53.0); Hemoglobin 10.9 g/dL (13.5-16.0); Immature Granulocytes Auto 0.09 Thou/mm3 (0.00-0.00); Lymphocytes # (Auto) 1.0 Thou/mm3 (1.0-4.8); Lymphocytes % (Auto) 11 % (10-50); Mean Corpuscular HGB Conc 32.1 g/dl (31.0-37.0); Mean Corpuscular Hemoglobin 29.0 pg (25.0-35.0); Mean Corpuscular Volume 90 fL (80-100); Monocytes # (Auto) 0.6 Thou/mm3 (0.0-0.8); Monocytes % (Auto) 6 % (0-12); Neutrophils # (Auto) 7.7 Thou/mm3 (1.8-7.7); Neutrophils % (Auto) 82 % (37-80); Nucleated Red Blood Cell # 0.00 Thou/mm3 (0.00-0.00); Nucleated Red Blood Cell % 0 /100 WBC (0); Platelet Count 198 Thou/mm3 (140-440); RDW Standard Deviation 57.4 fL (35.1-43.9); Red Blood Count 3.76 Miln/mm3 (4.50-5.90); White Blood Count 9.4 Thou/mm3 (3.8-10.6)
[2025-05-12 08:00] LABS: Alanine Aminotransferase 11 U/L (10-49); Albumin, Serum 3.8 gm/dL (3.5-5.0); Albumin/Globulin Ratio 1.5 (1.2-2.2); Alkaline Phosphatase 61 U/L (46-116); Anion Gap 9 (7-16); Aspartate Amino Transferase 12 U/L (0-34); BUN/Creatinine Ratio 20 Ratio (12-20); Bilirubin,Total 0.2 mg/dL (0.3-1.2); Blood Urea Nitrogen 24 mg/dL (9-23); Calcium 8.9 mg/dL (8.3-10.6); Calcium (Corrected) 9.1 mg/dL (8.5-10.1); Carbon Dioxide 23.2 mMol/L (20.0-31.0); Chloride 109 mMol/L (98-107); Creatinine (Component) 1.2 mg/dL (0.6-1.3); Estimated Creatinine Clearance 69.3 mL/min (>60); Globulin 2.5 gm/dL (2.3-3.5); Glucose 106 mg/dL (74-106); Magnesium 1.9 mg/dL (1.6-2.6); Osmolality,Calculated 285 (275-295); Potassium 4.4 mMol/L (3.4-5.1); Sodium 141 mMol/L (136-145); Total Protein 6.3 gm/dL (5.7-8.2); eGFR > 60 See Note
[2025-05-12] MEDS: VENLAFAXINE XR 37.5 MG CAPCR 150 MG PO (09:52)
[2025-05-12] MEDS: HEPARIN SOD INJ 5000 UNIT/ML VIAL SC ×2 (09:52→20:41)
[2025-05-12] MEDS: cefTRIAXone/D5w 1gm IV premix 1 GM/50 ML BAG IV (09:52)
[2025-05-12] MEDS: TRIMETHOPRIM/SULFA 160/800 DS TABLET 2 TAB PO ×2 (15:00→22:00)
[2025-05-12] MEDS: STERILE WATER IV (15:01)
[2025-05-12] MEDS: DEXTROSE IV (15:01)
[2025-05-12] MEDS: AMPHOTERICIN B LIPOSOME IV (15:01)
[2025-05-12] MEDS: WATER IV (15:01)
--- NOTE | 2025-05-12 15:17 | ESPR_ITS ---
<Statement entered by Nishant Winslow MD - 05/12/25 15:50> Patient was seen and evaluated bedside this morning. No acute overnight events. Patient CD4 count came back at 31 with CD3 at 584. Given this findings patient was started on Bactrim for treatment of PCP after discussing with ID. Will continue ceftriaxone and amphotericin B. Repeat blood cultures did grow GPC, 1 out of 2 samples. Otherwise no other complaints and patient's O2 requirements continue to improve. I have reviewed the note and agree with the resident's assessment & plan with exceptions as below. I have personally reviewed labs, imaging, home meds/prior records, examined the patient, formulated and discussed management plan with my attending Nishant Winslow PGY2 Disclaimer: Even though this this note was dictated by speech recognition and even though it was carefully revised there may still be minor errors in global human resources director due to voice recognition software. Documentation for date of: 05/12/25 Subjective Subjective Interval history: No acute overnight events. Patient examined at bedside. Patient reports improved shortness of breath on oxygen, work of breathing has improved since admission. Denies missing Dovato doses upon questioning today however on admission reported occasional medication non adherence. Denies fever, chills, nausea or vomiting or chest pain. Vitals labs reviewed. CD4 count 31. WBC decreased from 11.2 to Hemoglobin stable 10.9. Potassium 4.4, chloride 109, BUN increased from 17-24, creatinine 1.2, magnesium 1.9. Initial BCx 1/2 bottles s. aureus, sputum Cx staph aureus, repeat BCx 1/2 bottles GPC. CD4 count 31. Continue amphotericin B and ceftriaxone. Started TMP-SMX for PCP pneumonia treatment 160/800 2 tabs 3 times daily. Continue prednisone 40 mg twice daily. Reverse precautions in place. Exam Vital Signs Temp Pulse Resp BP Pulse Ox O2 Del Method O2 Flow Rate 96.8 F 62 20 114/64 95 High Flow Nasal Cannula 35 05/12/25 12:00 05/12/25 14:08 05/12/25 14:08 05/12/25 12:00 05/12/25 14:08 05/12/25 12:00 05/12/25 14:08 FiO2 55 05/12/25 14:08 Narrative Exam GENERAL: AOx3, sitting up in bed comfortably on high flow NC HEENT: NC/AT, mucous membranes moist, bilateral sclera anicteric CARDIOVASCULAR: regular rate and rhythm, S1/S2 present, no murmurs appreciated PULMONARY: diminished breath sounds bilaterally, crackles bilateral bases ABDOMINAL: soft, non-tender, non-distended, no rebound/guarding, bowel sounds present EXTREMITIES: no peripheral edema SKIN: warm and dry, several small scabbed lesions various healing stages on BUE on forearms, BLE on shins, L ear, upper back NEURO: CN II-XII grossly intact, no focal deficits, alert, following commands Objective Labs 05/13/25 04:59 05/13/25 04:59 Labs: Laboratory Results - last 24 hr 05/09/25 05/11/25 05/12/25 05:58 19:54 04:45 WBC 9.4 RBC 3.76 L Hgb 10.9 L Hct 34.0 L MCV 90 MCH 29.0 MCHC 32.1 RDW Std Deviation 57.4 H Plt Count 198 Neut % (Auto) 82 H Lymph % (Auto) 11 [place] % (Auto) 6 Eos % (Auto) 0 Baso % (Auto) 0 Neut # (Auto) 7.7 Lymph # (Auto) 1.0 [place] # (Auto) 0.6 Eos # (Auto) 0.0 Baso # (Auto) 0.0 Immature Gran # (Auto) 0.09 H Absolute Nucleated RBC 0.00 Immature Gran % 1 H Nucleated RBC % 0 Total Abs Lymphocytes 841 L Sodium 141 Potassium 4.4 Chloride 109 H Carbon Dioxide 23.2 Anion Gap 9 BUN 24 H Creatinine 1.2 Estim Creat Clear Calc 69.3 eGFR > 60 BUN/Creatinine Ratio 20 Glucose 106 Calculated Osmolality 285 Calcium 8.9 Corrected Calcium 9.1 Phosphorus 2.4 Magnesium 1.9 Total Bilirubin 0.2 L AST 12 ALT 11 Alkaline Phosphatase 61 Total Protein 6.3 Albumin 3.8 Globulin 2.5 Albumin/Globulin Ratio 1.5 Lymphocyte Subset Cmmnt TNP % CD3 Cells 70 Absolute CD3 Count 584 L % CD3-/CD16+/CD56+ 22 Abs CD3-/CD16+/CD56+ 181 % CD4 Cells 4 L Absolute CD4 Count 31 L CD4/CD8 Ratio 0.06 L % CD8 Cells 65 H Absolute CD8 Count 554 % CD19 Cells 7 Absolute CD19 Count 56 L HCV RNA Quant (PCR) <15 NOT DETECTED HCV RNA (PCR) IU log10 <1.18 NOT DETECTED HIV-1 RNA (PCR) NOT DETECTED HIV-1 RNA (PCR) log NOT DETECTED Influenza A (Rapid) Negative Influenza B (Rapid) Negative ABG Interpretation ABG results: 05/08/25 22:30 ABG pH 7.37 ABG pCO2 31 L ABG pO2 64 L ABG HCO3 18 L ABG O2 Saturation 88 L ABG Base Excess -7 L Quality Measures Quality Measures none Assessment & Plan Assessment Current Active Medications: Generic Name Dose Route Start Last Admin Trade Name Freq PRN Reason Stop Dose Admin Acetaminophen 650 mg 05/09/25 03:17 Acetaminophen 325 Mg Tablet PO 06/08/25 03:16 Q6H PRN Fever >100.4 Acetaminophen 650 mg 05/09/25 03:17 05/10/25 18:02 Acetaminophen 325 Mg Tablet PO 06/08/25 03:16 650 mg Q6H PRN Administration PAIN SCALE 1-3 (mild Albuterol/Ipratropium 3 ml 05/09/25 07:00 05/12/25 13:23 Albuterol/Ipratropium (Duoneb) Rt Kelly 3 Ml Nebu INH 06/08/25 06:59 3 ml Q6HRRT HUSSEIN Administration (Dolutegravir- 0 ea 05/09/25 13:45 05/12/25 09:53 Lamivudine [Dovato] PO 06/08/25 13:44 1 tablet 50-300 Mg Tablet) DAILY HUSSEIN Administration Diphenhydramine HCl 25 mg 05/09/25 11:45 Diphenhydramine Inj 50 Mg/Ml Vial IVP X1 PRN allergic reaction Heparin Sodium (Porcine) 5,000 unit 05/09/25 09:00 05/12/25 09:52 Heparin Sod Inj 5000 Unit/Ml Vial SC 05/23/25 08:59 5,000 unit BID HUSSEIN Administration Ceftriaxone Sodium/Dextrose 1 gm in 50 mls @ 100 mls/hr 05/10/25 15:18 05/12/25 09:52 Rocephin/D5w 1gm Iv Premix IV 05/17/25 15:17 100 mls/hr QDAY HUSSEIN Administration Amphotericin B 400 mg/ Sterile 346 mls @ 173 mls/hr 05/10/25 17:15 05/12/25 15:01 Water 96 ml/ Dextrose IV 05/17/25 17:14 173 mls/hr QDAY@1500 HUSSEIN Administration Protocol Levothyroxine Sodium 125 mcg/ 150 mcg 05/12/25 06:00 05/12/25 05:11 Levothyroxine Sodium 25 mcg PO 06/11/25 05:59 150 mcg ACBR HUSSEIN Administration Ondansetron HCl 4 mg 05/09/25 03:17 Ondansetron Inj 2 Mg/Ml Inj 2 Ml IVP 06/08/25 03:16 Q6H PRN NAUSEA OR VOMITING Protocol Pantoprazole Sodium 40 mg 05/09/25 14:10 05/12/25 09:53 Pantoprazole Inj 40 Mg Vial IVP 06/08/25 14:09 40 mg BID HUSSEIN Administration Prednisone 40 mg 05/10/25 21:00 05/12/25 09:52 Prednisone 20 Mg Tablet PO 05/15/25 12:00 40 mg BID HUSSEIN Administration Sennosides 1 tab 05/09/25 03:17 Senna Tablet PO 06/08/25 03:16 QDAY PRN constipation Protocol Trimethoprim/Sulfamethoxazole 2 tab 05/12/25 14:00 05/12/25 15:00 Trimethoprim/Sulfa 160/800 Ds Tablet PO 05/19/25 13:59 2 tab TID HUSSEIN Administration Protocol Venlafaxine HCl 150 mg 05/09/25 11:45 05/12/25 09:52 Venlafaxine Xr 37.5 Mg Capcr PO 06/08/25 11:44 150 mg QAM HUSSEIN Administration Plan 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 #Acute Hypoxic Respiratory Failure 2/2 #Coccidiomycosis PNA #HIV on Dovato #Hx of Hepatitis C, previously treated Presented with 2 months of worsening fatigue, weakness, SOB and occasional fevers. Endorses some medication noncompliance of all home medications, missing doses a few times. On admission WBC 14.6, CRP 20.1, Procal 7.15 , ABG- SpO2 -64, saturating at 90% on 10L of O2, requiring BiPAP previously. Previously followed Dr. Corral outpatient however due to insurance issues has not had recent appointment. Previously on dapsone but stopped taking. CXR extensive L lung and R base PNA. CTAP bibasilar pneumonia, splenomegaly 15mm. CTA chest negative for PE. BLE US neg for DVT There is suspicion of PCP given HIV, pending CD4 count and sputum Cx, CAP vs opportunistic infection. sputum Cx +staph aureus, BCx 1/2 initially grew staph aureus, however repeat BCx NGTD. Syphilis + with previous syphilis + with + VRDL in 2022. Azithromycin (05/08), Ceftriaxone (05/08), Metronidazole (05/08), Doxy (05/09), fluconazole (05/09-05/10), Cefepime (05/09-05/10) s/p 2L NS in ED, methylpred 125 mg x1, Duoneb x1 Initial BCx 1/2 bottles s. aureus, sputum Cx staph aureus, repeat BCx 1/2 bottles GPC, possible contamination but is being covered with current abx. 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 Short, with last appointment 04/06/25. Patient reports previously undergoing radiation as he could not tolerate chemotherapy. 12/10/23 PET scan revealed no hypermetabolic oropharyngeal mass but a hypermetabolic pulmonary mass L upper lobe. CT 01/05/24 15mm subcarinal lymph node and spiculated pulmonary mass L upper lobe 18mm. Repeat CT 02/02/25 no significant change with extensive nodular parenchymal disease R lung and R middle lobe, but more prominent nodular parenchymal disease L base including 12mm pulmonary nodule. Plan: - Consider consulting radiation oncology if patient does not improve with abx #HANNA likely prerenal, resolved Admission Cr 1.9, baseline 1.2-1.4. Following 2L NS, Cr improved to 1.5, now HANNA resolved. Likely 2/2 poor PO intake and current pulmonary infection. Plan: - CTM Cr - Avoid nephrotoxic agents and renally dose medication #Hypothyrodism Plan: - Restart home Levothyroxine 150 mcg # Depression Plan: - Continue home venlafaxine ER 150 mg #Polysubstance use #Methanphetamine use #Tobacco use #Marijuana use UDS on admission positive for methanphetamines in which he smokes and marijuana Plan: - Extensive substance use counselling Hospital management: Lines: PIV Diet: Regular Bowel: Senna prn GI prophylaxis: IV pantoprazole 40 mg BID DVT prophylaxis: heparin q12 Disposition: [facility] for IV abx CODE STATUS: Limited code, no prolonged intubation Plan of care discussed with attending Dr. Randolph, and PGY-2 Dr. Maxwell. Vicenta Meyers DO PGY-1 Internal Medicine Attending Provider Attestation/Addendum I have discussed and was present for the essential components of the history, physical examination, diagnosis, and treatment plan with the resident. I agree with the patient's care as documented by the resident and amended herein by me. Jonny Randolph DO. Although this document has been carefully reviewed, there may still be some phonetic and other typographical errors. These errors are purely grammatical due to imperfections in the software program and should not be construed in any way to compromise the substance of the patient's medical care during this visit.
--- NOTE | 2025-05-12 17:17 | PC.NURSE ---
notified dr cole of patient stating he is short of breath and is having an anxiety attack pt sttates to have stuffy nose. pt was reasssured and respiratory rate came back to 20. pt stated he wnated to try oxy mask for a little bit' pt o2 at 94%at 15 liters md acknowledged state she will be at bedside
[2025-05-12 17:49] LABS: (1-3)-B-D-glucan* 104 pg/mL
[2025-05-13] VITALS (17 sets, daily range): BP systolic 97–116; BP diastolic 56–78; PULSE 54–91; RESP 10–21; TEMP 36–36.7; O2SAT 91–99
[2025-05-13] MEDS: ALBUTEROL/IPRATROPIUM (Duoneb) RT SOL 3 ML NEBU INH ×4 (00:16→18:14)
[2025-05-13 05:38] LABS: Basophils # (Auto) 0.0 Thou/mm3 (0.0-0.2); Basophils % (Auto) 0 % (0-2.5); Eosinophils # (Auto) 0.0 Thou/mm3 (0.0-0.5); Eosinophils % (Auto) 0 % (0-10); Hematocrit 38.7 % (41.0-53.0); Hemoglobin 12.5 g/dL (13.5-16.0); Immature Granulocytes Auto 0.16 Thou/mm3 (0.00-0.00); Lymphocytes # (Auto) 0.9 Thou/mm3 (1.0-4.8); Lymphocytes % (Auto) 14 % (10-50); Mean Corpuscular HGB Conc 32.3 g/dl (31.0-37.0); Mean Corpuscular Hemoglobin 28.7 pg (25.0-35.0); Mean Corpuscular Volume 89 fL (80-100); Monocytes # (Auto) 0.5 Thou/mm3 (0.0-0.8); Monocytes % (Auto) 8 % (0-12); Neutrophils # (Auto) 5.1 Thou/mm3 (1.8-7.7); Neutrophils % (Auto) 76 % (37-80); Nucleated Red Blood Cell # 0.00 Thou/mm3 (0.00-0.00); Nucleated Red Blood Cell % 0 /100 WBC (0); Platelet Count 204 Thou/mm3 (140-440); RDW Standard Deviation 54.4 fL (35.1-43.9); Red Blood Count 4.36 Miln/mm3 (4.50-5.90); White Blood Count 6.8 Thou/mm3 (3.8-10.6)
[2025-05-13 06:07] LABS: Alanine Aminotransferase 23 U/L (10-49); Albumin, Serum 4.1 gm/dL (3.5-5.0); Albumin/Globulin Ratio 1.5 (1.2-2.2); Alkaline Phosphatase 67 U/L (46-116); Anion Gap 11 (7-16); Aspartate Amino Transferase 24 U/L (0-34); BUN/Creatinine Ratio 15 Ratio (12-20); Bilirubin,Total 0.3 mg/dL (0.3-1.2); Blood Urea Nitrogen 18 mg/dL (9-23); Calcium 9.1 mg/dL (8.3-10.6); Calcium (Corrected) 9.1 mg/dL (8.5-10.1); Carbon Dioxide 22.9 mMol/L (20.0-31.0); Chloride 106 mMol/L (98-107); Creatinine (Component) 1.2 mg/dL (0.6-1.3); Estimated Creatinine Clearance 69.3 mL/min (>60); Globulin 2.7 gm/dL (2.3-3.5); Glucose 110 mg/dL (74-106); Magnesium 2.2 mg/dL (1.6-2.6); Osmolality,Calculated 282 (275-295); Phosphorous 3.5 mg/dL (2.4-5.1); Potassium 3.9 mMol/L (3.4-5.1); Sodium 140 mMol/L (136-145); Total Protein 6.8 gm/dL (5.7-8.2); eGFR > 60 See Note
[2025-05-13] MEDS: LEVOTHYROXINE SODIUM 125 MCG, LEVOTHYROXINE SODIUM 25 MCG 150 MCG PO (07:08)
[2025-05-13] MEDS: TRIMETHOPRIM/SULFA 160/800 DS TABLET 2 TAB PO ×3 (07:09→21:17)
[2025-05-13] MEDS: VENLAFAXINE XR 37.5 MG CAPCR 150 MG PO (09:17)
[2025-05-13] MEDS: HEPARIN SOD INJ 5000 UNIT/ML VIAL SC ×2 (09:20→21:17)
[2025-05-13] MEDS: cefTRIAXone/D5w 1gm IV premix 1 GM/50 ML BAG IV (09:20)
--- NOTE | 2025-05-13 12:52 | ESPR_ITS ---
<Statement entered by Nishant Winslow MD - 05/13/25 16:14> Patient was seen and mother at bedside this morning. No acute overnight events. Patient was complaining of oral lesions therefore ordered lidocaine topical, no thrush was seen. No other complaints at this time, but patient was more sentimental today. Patient will stay in the hospital until we get further ID recommendations. General: A/O x3, no acute distress, ill appearing Eyes: PERRL, EOMI. Anicteric, vision grossly intact. Ears: No ear pain, no ear discharge, Hearing grossly intact. Nose: No nasal discharge. Mouth/Throat: Dry mucous membranes, ulcer in R side mouth, no redness, no lesions. Neck: Neck supple, non-tender, no cervical lymphadenopathy. Lungs: Clearer today, but still some rhonchi in [place] Lower lobes, No accessory muscle use. Cardio: Normal S1/S2, regular rhythm, no murmurs, no JVD or carotid bruits. Abdomen: Soft, non-tender, no palpable masses, peristalsis present, no guarding or rebound. Extremities: Symmetrical, no significant deformities, no peripheral edema , non-tender, peripheral pulses presents. Skin: No rashes, no lesions, warm to touch. Neuro: No focal neurological deficits. Psych: sentimental I have reviewed the note and agree with the medical student's assessment & plan with exceptions as below. I have personally reviewed labs, imaging, home meds/prior records, examined the patient, formulated and discussed management plan with my attending Nishant Winslow PGY2 Disclaimer: Even though this this note was dictated by speech recognition and even though it was carefully revised there may still be minor errors in manager bridge due to voice recognition software. Documentation for date of: 05/13/25 Subjective Subjective Interval history: Spoke at length with patient and nurse for updates this AM. Overnight no acute events. Telemetry showed sinus rhythm. This morning he reports 'sore-like' pain oral mucosa, a productive cough, as well as SOB when not on oxygen. Otherwise denies fever, chills, n/v/d/constipation, headache, chest pain, abdominal pain. Exam Vital Signs Temp Pulse Resp BP Pulse Ox O2 Del Method O2 Flow Rate 97.4 F 61 20 105/70 91 L BiPAP 35 05/13/25 08:02 05/13/25 08:02 05/13/25 08:02 05/13/25 08:02 05/13/25 08:02 05/13/25 08:02 05/13/25 06:57 FiO2 55 05/13/25 06:57 Narrative Exam GENERAL: AOx3, sitting up in bed comfortably on high flow NC HEENT: NO THRUSH, however this is an ulcer of rear R oral mucosa, mucous membranes moist, bilateral sclera anicteric CARDIOVASCULAR: regular rate and rhythm, S1/S2 present, no murmurs appreciated PULMONARY: diminished breath sounds bilaterally, crackles bilateral bases slightly improved from yesterday ABDOMINAL: soft, non-tender, non-distended, no rebound/guarding, bowel sounds present EXTREMITIES: no peripheral edema SKIN: warm and dry, several small scabbed lesions various healing stages on BUE on forearms, BLE on shins, L ear, upper back NEURO: CN II-XII grossly intact, no focal deficits, alert, following commands Objective Labs 05/13/25 04:59 05/13/25 04:59 Labs: Laboratory Results - last 24 hr 05/13/25 04:59 WBC 6.8 RBC 4.36 L Hgb 12.5 L Hct 38.7 L MCV 89 MCH 28.7 MCHC 32.3 RDW Std Deviation 54.4 H Plt Count 204 Neut % (Auto) 76 Lymph % (Auto) 14 [place] % (Auto) 8 Eos % (Auto) 0 Baso % (Auto) 0 Neut # (Auto) 5.1 Lymph # (Auto) 0.9 L [place] # (Auto) 0.5 Eos # (Auto) 0.0 Baso # (Auto) 0.0 Immature Gran # (Auto) 0.16 H Absolute Nucleated RBC 0.00 Immature Gran % 2 H Nucleated RBC % 0 Sodium 140 Potassium 3.9 D Chloride 106 Carbon Dioxide 22.9 Anion Gap 11 BUN 18 Creatinine 1.2 Estim Creat Clear Calc 69.3 eGFR > 60 BUN/Creatinine Ratio 15 Glucose 110 H Calculated Osmolality 282 Calcium 9.1 Corrected Calcium 9.1 Phosphorus 3.5 Magnesium 2.2 Total Bilirubin 0.3 AST 24 ALT 23 Alkaline Phosphatase 67 Total Protein 6.8 Albumin 4.1 Globulin 2.7 Albumin/Globulin Ratio 1.5 ABG Interpretation ABG results: 05/08/25 22:30 ABG pH 7.37 ABG pCO2 31 L ABG pO2 64 L ABG HCO3 18 L ABG O2 Saturation 88 L ABG Base Excess -7 L Quality Measures Quality Measures none Assessment & Plan Assessment Current Active Medications: Generic Name Dose Route Start Last Admin Trade Name Freq PRN Reason Stop Dose Admin Acetaminophen 650 mg 05/09/25 03:17 Acetaminophen 325 Mg Tablet PO 06/08/25 03:16 Q6H PRN Fever >100.4 Acetaminophen 650 mg 05/09/25 03:17 05/10/25 18:02 Acetaminophen 325 Mg Tablet PO 06/08/25 03:16 650 mg Q6H PRN Administration PAIN SCALE 1-3 (mild Albuterol/Ipratropium 3 ml 05/09/25 07:00 05/13/25 06:55 Albuterol/Ipratropium (Duoneb) Rt Kelly 3 Ml Nebu INH 06/08/25 06:59 3 ml Q6HRRT HUSSEIN Administration (Dolutegravir- 0 ea 05/09/25 13:45 05/13/25 09:18 Lamivudine [Dovato] PO 06/08/25 13:44 1 tablet 50-300 Mg Tablet) DAILY HUSSEIN Administration Diphenhydramine HCl 25 mg 05/09/25 11:45 Diphenhydramine Inj 50 Mg/Ml Vial IVP X1 PRN allergic reaction Fluticasone Propionate 1 spray 05/12/25 18:13 Fluticasone Jorge A [place] 0.05% 16 Gm Btl NASAL 06/11/25 20:59 BID PRN Nasal Congestion Guaifenesin 100 mg 05/12/25 18:13 Guaifenesin Syrup 200 Mg/10 Ml Udc PO 06/11/25 18:12 QID PRN COUGH Protocol Heparin Sodium (Porcine) 5,000 unit 05/09/25 09:00 05/13/25 09:20 Heparin Sod Inj 5000 Unit/Ml Vial SC 05/23/25 08:59 5,000 unit BID HUSSEIN Administration Hydroxyzine HCl 10 mg 05/12/25 18:13 Hydroxyzine Hcl 10 Mg Tablet PO 06/11/25 18:12 Q6HR PRN ANXIETY Ceftriaxone Sodium/Dextrose 1 gm in 50 mls @ 100 mls/hr 05/10/25 15:18 05/13/25 09:20 Rocephin/D5w 1gm Iv Premix IV 05/17/25 15:17 100 mls/hr QDAY HUSSEIN Administration Amphotericin B 400 mg/ Sterile 346 mls @ 173 mls/hr 05/10/25 17:15 05/12/25 15:01 Water 96 ml/ Dextrose IV 05/17/25 17:14 173 mls/hr QDAY@1500 HUSSEIN Administration Protocol Levothyroxine Sodium 125 mcg/ 150 mcg 05/12/25 06:00 05/13/25 07:08 Levothyroxine Sodium 25 mcg PO 06/11/25 05:59 150 mcg ACBR HUSSEIN Administration Ondansetron HCl 4 mg 05/09/25 03:17 Ondansetron Inj 2 Mg/Ml Inj 2 Ml IVP 06/08/25 03:16 Q6H PRN NAUSEA OR VOMITING Protocol Pantoprazole Sodium 40 mg 05/09/25 14:10 05/13/25 09:19 Pantoprazole Inj 40 Mg Vial IVP 06/08/25 14:09 40 mg BID HUSSEIN Administration Prednisone 40 mg 05/10/25 21:00 05/13/25 09:16 Prednisone 20 Mg Tablet PO 05/15/25 12:00 40 mg BID HUSSEIN Administration Sennosides 1 tab 05/09/25 03:17 Senna Tablet PO 06/08/25 03:16 QDAY PRN constipation Protocol Trimethoprim/Sulfamethoxazole 2 tab 05/12/25 14:00 05/13/25 07:09 Trimethoprim/Sulfa 160/800 Ds Tablet PO 05/19/25 13:59 2 tab TID HUSSEIN Administration Protocol Venlafaxine HCl 150 mg 05/09/25 11:45 05/13/25 09:17 Venlafaxine Xr 37.5 Mg Capcr PO 06/08/25 11:44 150 mg QAM HUSSEIN Administration Plan [facility] 59M pmhx significant for sexually transmitted HIV (Davato since 2022 CD4 110), hx of hep C (previously treated), reported CKD, hypothyroidism presented to [facility] ED 05/08 for worsening SOB, generalized weakness and fever, admitted for acute hypoxic respiratory failure 2/2 coccidiomycosis PNA, found to have HANNA. #Acute Hypoxic Respiratory Failure 2/2 #Coccidiomycosis PNA #HIV on Dovato #Oral Mucosal ulcer #Hx of Hepatitis C, previously treated Presented with 2 months of worsening fatigue, weakness, SOB and occasional fevers. Endorses some medication noncompliance of all home medications, missing doses a few times. On admission WBC 14.6, CRP 20.1, Procal 7.15 , ABG- SpO2 -64, saturating at 90% on 10L of O2, requiring BiPAP previously. Previously followed Dr. Corral outpatient however due to insurance issues has not had recent appointment. Previously on dapsone but stopped taking. CXR extensive L lung and R base PNA. CTAP bibasilar pneumonia, splenomegaly 15mm. CTA chest negative for PE. BLE US neg for DVT There is suspicion of PCP given HIV, pending CD4 count and sputum Cx, CAP vs opportunistic infection. sputum Cx +staph aureus, BCx 1/2 initially grew staph aureus, however repeat BCx NGTD. Syphilis + with previous syphilis + with + VRDL in 2022. Azithromycin (05/08), Ceftriaxone (05/08), Metronidazole (05/08), Doxy (05/09), fluconazole (05/09-05/10), Cefepime (05/09-05/10) s/p 2L NS in ED, methylpred 125 mg x1, Duoneb x1 Initial BCx 1/2 bottles s. aureus, sputum Cx staph aureus, repeat BCx 1/2 bottles GPC, possible contamination but is being covered with current abx. CD4 count 31 Oral exam this AM revealed no evidence of thrush but did show a rear R oral mucosal ulcer that could be related to HIV, or otherwise the patient believes it is due to his dentures irritating the area. 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 Short, with last appointment 04/06/25. Patient reports previously undergoing radiation as he could not tolerate chemotherapy. 12/10/23 PET scan revealed no hypermetabolic oropharyngeal mass but a hypermetabolic pulmonary mass L upper lobe. CT 01/05/24 15mm subcarinal lymph node and spiculated pulmonary mass L upper lobe 18mm. Repeat CT 02/02/25 no significant change with extensive nodular parenchymal disease R lung and R middle lobe, but more prominent nodular parenchymal disease L base including 12mm pulmonary nodule. - Consider consulting radiation oncology if patient does not improve with abx #HANNA likely prerenal, resolved Admission Cr 1.9, baseline 1.2-1.4. Following 2L NS, Cr improved to 1.5, now HANNA resolved. Likely 2/2 poor PO intake and current pulmonary infection. - CTM Cr - Avoid nephrotoxic agents and renally dose medication #Hypothyrodism - Continue home Levothyroxine 150 mcg #Depression - Continue home venlafaxine ER 150 mg #Polysubstance use #Methanphetamine use #Tobacco use #Marijuana use UDS on admission positive for methamphetamines in which he smokes and marijuana - Extensive substance use counselling Hospital management: Lines: PIV Diet: Regular Bowel: Senna prn GI prophylaxis: IV pantoprazole 40 mg BID DVT prophylaxis: heparin q12 Disposition: [facility] for IV abx CODE STATUS: Limited code, no prolonged intubation Plan of care discussed with attending Dr. Agustín CAMPBELL Attending Provider Attestation/Addendum I have discussed and was present for the essential components of the history, physical examination, diagnosis, and treatment plan with the resident. I agree with the patient's care as documented by the resident and amended herein by me. Jonny Randolph DO. Although this document has been carefully reviewed, there may still be some phonetic and other typographical errors. These errors are purely grammatical due to imperfections in the software program and should not be construed in any way to compromise the substance of the patient's medical care during this visit. Patient seen and evaluated this AM. Vital signs stable, patient afebrile overnight, still remains on high flow nasal cannula, labs largely unremarkable, per infectious disease recs will continue Dovato, Bactrim, Amphotericin, ceftriaxone and prednisone 40 mg twice daily. Patient was very angry this morning, wanting to shower and wanting to have his sheets changed his bed which we did accommodate over the showers more difficult considering his O2 requirements. Patient also very emotional today considering his situation however we will continue to monitor closely and make him as comfortable as we can. Patient will be here through Thursday so we can follow-up with infectious disease for additional recommendations.
[2025-05-13] MEDS: WATER IV (14:33)
[2025-05-13] MEDS: AMPHOTERICIN B LIPOSOME IV (14:33)
[2025-05-13] MEDS: STERILE WATER IV (14:33)
[2025-05-13] MEDS: DEXTROSE IV (14:33)
--- NOTE | 2025-05-13 15:53 | PC.SS ---
Rounding note: ID consulted, reccs. pending for 05/15. Discharging home when medically clear.
[2025-05-14] VITALS (18 sets, daily range): BP systolic 98–115; BP diastolic 59–77; PULSE 56–85; RESP 10–20; TEMP 35.8–36.6; O2SAT 93–98
[2025-05-14] MEDS: ALBUTEROL/IPRATROPIUM (Duoneb) RT SOL 3 ML NEBU INH ×4 (00:37→18:38)
[2025-05-14] MEDS: LEVOTHYROXINE SODIUM 125 MCG, LEVOTHYROXINE SODIUM 25 MCG 150 MCG PO (05:39)
[2025-05-14] MEDS: TRIMETHOPRIM/SULFA 160/800 DS TABLET 2 TAB PO ×3 (05:40→21:09)
[2025-05-14 05:56] LABS: Basophils # (Auto) 0.0 Thou/mm3 (0.0-0.2); Basophils % (Auto) 0 % (0-2.5); Eosinophils # (Auto) 0.0 Thou/mm3 (0.0-0.5); Eosinophils % (Auto) 0 % (0-10); Hematocrit 39.1 % (41.0-53.0); Hemoglobin 12.4 g/dL (13.5-16.0); Immature Granulocytes Auto 0.36 Thou/mm3 (0.00-0.00); Lymphocytes # (Auto) 1.1 Thou/mm3 (1.0-4.8); Lymphocytes % (Auto) 11 % (10-50); Mean Corpuscular HGB Conc 31.7 g/dl (31.0-37.0); Mean Corpuscular Hemoglobin 28.2 pg (25.0-35.0); Mean Corpuscular Volume 89 fL (80-100); Monocytes # (Auto) 0.6 Thou/mm3 (0.0-0.8); Monocytes % (Auto) 7 % (0-12); Neutrophils # (Auto) 7.2 Thou/mm3 (1.8-7.7); Neutrophils % (Auto) 77 % (37-80); Nucleated Red Blood Cell # 0.00 Thou/mm3 (0.00-0.00); Nucleated Red Blood Cell % 0 /100 WBC (0); Platelet Count 217 Thou/mm3 (140-440); RDW Standard Deviation 53.8 fL (35.1-43.9); Red Blood Count 4.40 Miln/mm3 (4.50-5.90); White Blood Count 9.3 Thou/mm3 (3.8-10.6)
[2025-05-14 06:37] LABS: Alanine Aminotransferase 59 U/L (10-49); Albumin, Serum 4.0 gm/dL (3.5-5.0); Albumin/Globulin Ratio 1.5 (1.2-2.2); Alkaline Phosphatase 68 U/L (46-116); Anion Gap 13 (7-16); Aspartate Amino Transferase 44 U/L (0-34); Bilirubin,Total 0.3 mg/dL (0.3-1.2); Blood Urea Nitrogen 29 mg/dL (9-23); Calcium 9.1 mg/dL (8.3-10.6); Calcium (Corrected) 9.1 mg/dL (8.5-10.1); Carbon Dioxide 22.8 mMol/L (20.0-31.0); Chloride 104 mMol/L (98-107); Globulin 2.7 gm/dL (2.3-3.5); Glucose 116 mg/dL (74-106); Magnesium 2.4 mg/dL (1.6-2.6); Osmolality,Calculated 286 (275-295); Phosphorous 4.2 mg/dL (2.4-5.1); Potassium 3.7 mMol/L (3.4-5.1); Sodium 140 mMol/L (136-145); Total Protein 6.7 gm/dL (5.7-8.2)
[2025-05-14 06:45] LABS: BUN/Creatinine Ratio 17 Ratio (12-20); Creatinine (Component) 1.7 mg/dL (0.6-1.3); Estimated Creatinine Clearance 48.9 mL/min (>60); eGFR 46 See Note
[2025-05-14] MEDS: cefTRIAXone/D5w 1gm IV premix 1 GM/50 ML BAG IV (08:55)
[2025-05-14] MEDS: HEPARIN SOD INJ 5000 UNIT/ML VIAL SC ×2 (08:56→21:10)
[2025-05-14] MEDS: VENLAFAXINE XR 37.5 MG CAPCR 150 MG PO (08:56)
[2025-05-14] MEDS: RINGERS LACTATED 1000 ML 500 ML 999 ML IV (09:52)
[2025-05-14] MEDS: STERILE WATER IV (14:15)
[2025-05-14] MEDS: AMPHOTERICIN B LIPOSOME IV (14:15)
[2025-05-14] MEDS: WATER IV (14:15)
[2025-05-14] MEDS: DEXTROSE IV (14:15)
--- NOTE | 2025-05-14 15:17 | PC.SS ---
Rounding note: Currently on IV antibiotics; Pending Dr. Corral's recommendation. May discharge home in 3-4days.
[2025-05-14 15:25] LABS: Albumin, Serum 3.7 gm/dL (3.5-5.0); Anion Gap 13 (7-16); BUN/Creatinine Ratio 14 Ratio (12-20); Blood Urea Nitrogen 29 mg/dL (9-23); Calcium 8.6 mg/dL (8.3-10.6); Calcium (Corrected) 8.8 mg/dL (8.5-10.1); Carbon Dioxide 20.2 mMol/L (20.0-31.0); Chloride 104 mMol/L (98-107); Creatinine (Component) 2.1 mg/dL (0.6-1.3); Estimated Creatinine Clearance 39.6 mL/min (>60); Glucose 133 mg/dL (74-106); Osmolality,Calculated 281 (275-295); Phosphorous 4.9 mg/dL (2.4-5.1); Potassium 4.2 mMol/L (3.4-5.1); Sodium 137 mMol/L (136-145); eGFR 36 See Note
--- NOTE | 2025-05-14 16:12 | PD.RESPRO ---
Documentation for date of: 05/14/25 Subjective Subjective Interval history: No acute overnight events. Patient seen examined at bedside. Reports feeling fatigued today although shortness of breath is stable and not worsening. Reports BiPAP dries out his mouth which exacerbates his mouth ulcer which he likely attributes to the dentures not being fitted well. Denies any chest pain, shortness of breath, abdominal pain or fever. Vitals and labs reviewed. BUN increased from 18 to 29. Creatinine increased from 1.2 to 1.7. Continue amphotericin B, ceftriaxone, TMP-SMX and prednisone. Plan to follow-up with ID tomorrow. Patient was given 500 cc of LR bolus however p.m. creatinine continued to uptrend to 2.1, likely secondary to abx s/e. Nephrology consulted. Exam Vital Signs Temp Pulse Resp BP Pulse Ox O2 Del Method O2 Flow Rate 97.4 F 61 18 110/68 98 BiPAP 30 05/14/25 11:45 05/14/25 13:49 05/14/25 13:49 05/14/25 11:45 05/14/25 13:49 05/14/25 11:45 05/14/25 13:49 FiO2 45 05/14/25 13:49 Narrative Exam GENERAL: AOx3, sitting up in bed comfortably on high flow NC HEENT: NO THRUSH, however this is an ulcer of rear R oral mucosa, mucous membranes moist, bilateral sclera anicteric CARDIOVASCULAR: regular rate and rhythm, S1/S2 present, no murmurs appreciated PULMONARY: diminished breath sounds bilaterally, crackles bilateral bases slightly improved ABDOMINAL: soft, non-tender, non-distended, no rebound/guarding, bowel sounds present EXTREMITIES: no peripheral edema SKIN: warm and dry, several small scabbed lesions various healing stages on BUE on forearms, BLE on shins, L ear, upper back NEURO: CN II-XII grossly intact, no focal deficits, alert, following commands Objective Labs 05/14/25 04:40 05/14/25 14:52 Labs: Laboratory Results - last 24 hr 05/14/25 05/14/25 04:40 14:52 WBC 9.3 RBC 4.40 L Hgb 12.4 L Hct 39.1 L MCV 89 MCH 28.2 MCHC 31.7 RDW Std Deviation 53.8 H Plt Count 217 Neut % (Auto) 77 Lymph % (Auto) 11 [place] % (Auto) 7 Eos % (Auto) 0 Baso % (Auto) 0 Neut # (Auto) 7.2 Lymph # (Auto) 1.1 [place] # (Auto) 0.6 Eos # (Auto) 0.0 Baso # (Auto) 0.0 Immature Gran # (Auto) 0.36 H Absolute Nucleated RBC 0.00 Immature Gran % 4 H Nucleated RBC % 0 Sodium 140 137 Potassium 3.7 4.2 D Chloride 104 104 Carbon Dioxide 22.8 20.2 Anion Gap 13 13 BUN 29 H 29 H Creatinine 1.7 H D 2.1 H Estim Creat Clear Calc 48.9 L 39.6 L eGFR 46 L 36 L BUN/Creatinine Ratio 17 14 Glucose 116 H 133 H Calculated Osmolality 286 281 Calcium 9.1 8.6 Corrected Calcium 9.1 8.8 Phosphorus 4.2 4.9 Magnesium 2.4 Total Bilirubin 0.3 AST 44 H ALT 59 H Alkaline Phosphatase 68 Total Protein 6.7 Albumin 4.0 3.7 Globulin 2.7 Albumin/Globulin Ratio 1.5 ABG Interpretation ABG results: 05/08/25 22:30 ABG pH 7.37 ABG pCO2 31 L ABG pO2 64 L ABG HCO3 18 L ABG O2 Saturation 88 L ABG Base Excess -7 L Quality Measures Quality Measures none Assessment & Plan Assessment Current Active Medications: Generic Name Dose Route Start Last Admin Trade Name Freq PRN Reason Stop Dose Admin Acetaminophen 650 mg 05/09/25 03:17 Acetaminophen 325 Mg Tablet PO 06/08/25 03:16 Q6H PRN Fever >100.4 Acetaminophen 650 mg 05/09/25 03:17 05/10/25 18:02 Acetaminophen 325 Mg Tablet PO 06/08/25 03:16 650 mg Q6H PRN Administration PAIN SCALE 1-3 (mild Albuterol/Ipratropium 3 ml 05/09/25 07:00 05/14/25 12:02 Albuterol/Ipratropium (Duoneb) Rt Kelly 3 Ml Nebu INH 06/08/25 06:59 3 ml Q6HRRT HUSSEIN Administration (Dolutegravir- 0 ea 05/09/25 13:45 05/14/25 08:56 Lamivudine [Dovato] PO 06/08/25 13:44 1 tablet 50-300 Mg Tablet) DAILY HUSSEIN Administration Diphenhydramine HCl 25 mg 05/09/25 11:45 Diphenhydramine Inj 50 Mg/Ml Vial IVP X1 PRN allergic reaction Fluticasone Propionate 1 spray 05/12/25 18:13 Fluticasone Jorge A [place] 0.05% 16 Gm Btl NASAL 06/11/25 20:59 BID PRN Nasal Congestion Guaifenesin 100 mg 05/12/25 18:13 Guaifenesin Syrup 200 Mg/10 Ml Udc PO 06/11/25 18:12 QID PRN COUGH Protocol Heparin Sodium (Porcine) 5,000 unit 05/09/25 09:00 05/14/25 08:56 Heparin Sod Inj 5000 Unit/Ml Vial SC 05/23/25 08:59 5,000 unit BID HUSSEIN Administration Hydroxyzine HCl 10 mg 05/12/25 18:13 05/14/25 08:56 Hydroxyzine Hcl 10 Mg Tablet PO 06/11/25 18:12 10 mg Q6HR PRN Administration ANXIETY Ceftriaxone Sodium/Dextrose 1 gm in 50 mls @ 100 mls/hr 05/10/25 15:18 05/14/25 08:55 Rocephin/D5w 1gm Iv Premix IV 05/17/25 15:17 100 mls/hr QDAY HUSSEIN Administration Amphotericin B 400 mg/ Sterile 346 mls @ 173 mls/hr 05/10/25 17:15 05/14/25 14:15 Water 96 ml/ Dextrose IV 05/17/25 17:14 173 mls/hr QDAY@1500 HUSSEIN Administration Protocol Levothyroxine Sodium 125 mcg/ 150 mcg 05/12/25 06:00 05/14/25 05:39 Levothyroxine Sodium 25 mcg PO 06/11/25 05:59 150 mcg ACBR HUSSEIN Administration Ondansetron HCl 4 mg 05/09/25 03:17 Ondansetron Inj 2 Mg/Ml Inj 2 Ml IVP 06/08/25 03:16 Q6H PRN NAUSEA OR VOMITING Protocol Pantoprazole Sodium 40 mg 05/09/25 14:10 05/14/25 08:55 Pantoprazole Inj 40 Mg Vial IVP 06/08/25 14:09 40 mg BID HUSSEIN Administration Prednisone 40 mg 05/10/25 21:00 05/14/25 08:56 Prednisone 20 Mg Tablet PO 05/15/25 12:00 40 mg BID HUSSEIN Administration Sennosides 1 tab 05/09/25 03:17 Senna Tablet PO 06/08/25 03:16 QDAY PRN constipation Protocol Trimethoprim/Sulfamethoxazole 2 tab 05/12/25 14:00 05/14/25 14:16 Trimethoprim/Sulfa 160/800 Ds Tablet PO 05/19/25 13:59 2 tab TID HUSSEIN Administration Protocol Venlafaxine HCl 150 mg 05/09/25 11:45 05/14/25 08:56 Venlafaxine Xr 37.5 Mg Capcr PO 06/08/25 11:44 150 mg QAM HUSSEIN Administration Plan Joseph Gutierrez 59M pmhx significant for 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 #Acute Hypoxic Respiratory Failure 2/2 #Coccidiomycosis PNA #HIV on Dovato #Oral Mucosal ulcer #Hx of Hepatitis C, previously treated Presented with 2 months of worsening fatigue, weakness, SOB and occasional fevers. Endorses some medication noncompliance of all home medications, missing doses a few times. On admission WBC 14.6, CRP 20.1, Procal 7.15 , ABG- SpO2 -64, saturating at 90% on 10L of O2, requiring BiPAP previously. Previously followed Dr. Corral outpatient however due to insurance issues has not had recent appointment. Previously on dapsone but stopped taking. CXR extensive L lung and R base PNA. CTAP bibasilar pneumonia, splenomegaly 15mm. CTA chest negative for PE. BLE US neg for DVT There is suspicion of PCP given HIV, pending CD4 count and sputum Cx, CAP vs opportunistic infection. sputum Cx +staph aureus, BCx 08/04 initially grew staph aureus, however repeat BCx NGTD. Syphilis + with previous syphilis + with + VRDL in 2022. Azithromycin (05/08), Ceftriaxone (05/08), Metronidazole (05/08), Doxy (05/09), fluconazole (05/09-05/10), Cefepime (05/09-05/10) s/p 2L NS in ED, methylpred 125 mg x1, Duoneb x1 Initial BCx 1/2 bottles s. aureus, sputum Cx staph aureus, repeat BCx 1/2 bottles GPC, possible contamination but is being covered with current abx. CD4 count 31. HIV RNA not detected and HCV RNA not detected. Oral exam this AM revealed no evidence of thrush but did show a rear R oral mucosal ulcer that could be related to HIV, or otherwise the patient believes it is due to his dentures irritating the area. 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 Short, with last appointment 04/06/25. Patient reports previously undergoing radiation as he could not tolerate chemotherapy. 12/10/23 PET scan revealed no hypermetabolic oropharyngeal mass but a hypermetabolic pulmonary mass L upper lobe. CT 01/05/24 15mm subcarinal lymph node and spiculated pulmonary mass L upper lobe 18mm. Repeat CT 02/02/25 no significant change with extensive nodular parenchymal disease R lung and R middle lobe, but more prominent nodular parenchymal disease L base including 12mm pulmonary nodule. Plan: - Consider consulting radiation oncology if patient does not improve with abx #HANNA likely prerenal Admission Cr 1.9, baseline 1.2-1.4. Following 2L NS, Cr improved to 1.5, now HANNA resolved. Cr bumped to 1.7->2.1 today. Likely 2/2 poor PO intake and current pulmonary infection. Second HANNA likely 2/2 abx s/e. s/p 500 cc LR bolus with no improvement in HANNA, worsened Plan: - CTM Cr - Avoid nephrotoxic agents and renally dose medication - Nephrology consulted, recs appreciated - Discuss with ID tomorrow regarding possible TMPSMX and/or amphotericin B s/e #Hypothyrodism - Continue home Levothyroxine 150 mcg #Depression - Continue home venlafaxine ER 150 mg #Polysubstance use #Methanphetamine use #Tobacco use #Marijuana use UDS on admission positive for methamphetamines in which he smokes and marijuana - Extensive substance use counselling Hospital management: Lines: PIV Diet: Regular Bowel: Senna prn GI prophylaxis: IV pantoprazole 40 mg BID DVT prophylaxis: heparin q12 Disposition: [facility] for IV abx CODE STATUS: FULL CODE Plan of care discussed with attending Dr. Randolph. Vicenta Meyers DO Internal Medicine PGY-1 Attending Provider Attestation/Addendum I have discussed and was present for the essential components of the history, physical examination, diagnosis, and treatment plan with the resident. I agree with the patient's care as documented by the resident and amended herein by me. Jonny Randolph DO. Although this document has been carefully reviewed, there may still be some phonetic and other typographical errors. These errors are purely grammatical due to imperfections in the software program and should not be construed in any way to compromise the substance of the patient's medical care during this visit. Patient seen and evaluated this AM. No acute events overnight, patient remains on high flow nasal cannula this morning, no subjective complaints. Kidney function decreased today, BUN 29, creatinine 1.7 it is up trended to 2.1 today, patient also has a slight transaminitis with an AST of 44 and ALT 59 possibly secondary to medication use, namely ceftriaxone. Creatinine clearance 39.6. Will continue all medications as is for now, may have to consider renally dosing certain medications to include Bactrim if renal function worsens. As of now, we will continue Dovato, amphotericin B, ceftriaxone, prednisone 40 mg twice daily and Bactrim. Infectious disease will be back tomorrow, appreciate recommendations.
[2025-05-14 23:34] LABS: HCV RNA, PCR <15 NOT DETECTED IU/mL
[2025-05-15] VITALS (14 sets, daily range): BP systolic 95–138; BP diastolic 56–76; PULSE 56–106; RESP 10–20; TEMP 36.1–36.6; O2SAT 95–99
[2025-05-15] MEDS: ALBUTEROL/IPRATROPIUM (Duoneb) RT SOL 3 ML NEBU INH ×4 (01:25→18:55)
[2025-05-15] MEDS: TRIMETHOPRIM/SULFA 160/800 DS TABLET 2 TAB PO (05:09)
[2025-05-15] MEDS: LEVOTHYROXINE SODIUM 125 MCG, LEVOTHYROXINE SODIUM 25 MCG 150 MCG PO (05:10)
[2025-05-15 05:41] LABS: Basophils # (Auto) 0.0 Thou/mm3 (0.0-0.2); Basophils % (Auto) 0 % (0-2.5); Eosinophils # (Auto) 0.0 Thou/mm3 (0.0-0.5); Eosinophils % (Auto) 0 % (0-10); Hematocrit 38.0 % (41.0-53.0); Hemoglobin 12.3 g/dL (13.5-16.0); Immature Granulocytes Auto 0.50 Thou/mm3 (0.00-0.00); Lymphocytes # (Auto) 1.3 Thou/mm3 (1.0-4.8); Lymphocytes % (Auto) 14 % (10-50); Mean Corpuscular HGB Conc 32.4 g/dl (31.0-37.0); Mean Corpuscular Hemoglobin 28.3 pg (25.0-35.0); Mean Corpuscular Volume 88 fL (80-100); Monocytes # (Auto) 1.2 Thou/mm3 (0.0-0.8); Monocytes % (Auto) 12 % (0-12); Neutrophils # (Auto) 6.6 Thou/mm3 (1.8-7.7); Neutrophils % (Auto) 68 % (37-80); Nucleated Red Blood Cell # 0.00 Thou/mm3 (0.00-0.00); Nucleated Red Blood Cell % 0 /100 WBC (0); Platelet Count 212 Thou/mm3 (140-440); RDW Standard Deviation 52.0 fL (35.1-43.9); Red Blood Count 4.34 Miln/mm3 (4.50-5.90); White Blood Count 9.6 Thou/mm3 (3.8-10.6)
[2025-05-15 06:05] LABS: Alanine Aminotransferase 56 U/L (10-49); Albumin, Serum 3.7 gm/dL (3.5-5.0); Albumin/Globulin Ratio 1.5 (1.2-2.2); Alkaline Phosphatase 66 U/L (46-116); Anion Gap 13 (7-16); Aspartate Amino Transferase 25 U/L (0-34); BUN/Creatinine Ratio 15 Ratio (12-20); Bilirubin,Total 0.2 mg/dL (0.3-1.2); Blood Urea Nitrogen 34 mg/dL (9-23); Calcium 8.9 mg/dL (8.3-10.6); Calcium (Corrected) 9.1 mg/dL (8.5-10.1); Carbon Dioxide 21.8 mMol/L (20.0-31.0); Chloride 104 mMol/L (98-107); Creatinine (Component) 2.3 mg/dL (0.6-1.3); Estimated Creatinine Clearance 36.1 mL/min (>60); Globulin 2.5 gm/dL (2.3-3.5); Glucose 108 mg/dL (74-106); Magnesium 2.2 mg/dL (1.6-2.6); Osmolality,Calculated 286 (275-295); Phosphorous 5.3 mg/dL (2.4-5.1); Potassium 3.8 mMol/L (3.4-5.1); Sodium 139 mMol/L (136-145); Total Protein 6.2 gm/dL (5.7-8.2); eGFR 32 See Note
[2025-05-15 06:27] LABS: Interpretation POSITIVE
[2025-05-15 06:33] LABS: HCV RNA, PCR Log IU <1.18 NOT DETECTED Log IU/mL
[2025-05-15] MEDS: cefTRIAXone/D5w 1gm IV premix 1 GM/50 ML BAG IV (08:48)
[2025-05-15] MEDS: VENLAFAXINE XR 37.5 MG CAPCR 150 MG PO (08:50)
[2025-05-15] MEDS: HEPARIN SOD INJ 5000 UNIT/ML VIAL SC ×2 (08:55→20:29)
--- NOTE | 2025-05-15 08:59 | XR_ITS ---
Examination: Retroperitoneal ultrasound, complete Technique: Multiple high resolution grayscale images of the retroperitoneum obtained, including kidneys and bladder. Exam date and time: May 15, 2025, 10:00 a.m. INDICATIONS: Diagnosis chronic kidney disease stage III FINDINGS: Right kidney 8.2 cm renal cortex 1.9 cm Left kidney 9.1 cm renal cortex 1.9 cm [place] 8 mm left renal calculus No hydronephrosis No bladder mass or bladder calculi Bladder prevoid volume 305 cc Prostate not enlarged no prostate nodules IMPRESSION: 8 mm nonobstructing left renal calculus Small kidneys with bilateral renal cortical thinning Mild renal scar formation No hydronephrosis
--- NOTE | 2025-05-15 09:21 | ECHO_ITS ---
Transthoracic Echo Report Ht (in): 70 Wt (lb): 182 Exam Location: [facility] Status: Inpatient Master Of Ceremonies: Brittanie Nowak Indications: Procedure Performed: BP: 111 / 71 HR: 68 MEASUREMENTS (Male / Female) Normal Values 2D ECHO LV Diastolic Diameter PLAX 4.4 cm 4.2 - 5.9 / 3.9 - 5.3 cm LV Systolic Diameter PLAX 2.8 cm IVS Diastolic Thickness 0.8 cm 0.6 - 1.0 / 0.6 - 0.9 cm LVPW Diastolic Thickness 1.2 cm 0.6 - 1.0 / 0.6 - 0.9 cm LV Relative Wall Thickness 0.5 LVOT Diameter 1.9 cm LA Volume Index 23.6 cm?/m? 16 - 28 cm?/m? Ascending Aorta Diameter 3.3 cm M-MODE AV Cusp Separation MM 1.3 cm DOPPLER AV Peak Velocity 141.0 cm/s AV Peak Gradient 8.0 mmHg AV Mean Gradient 5.0 mmHg AV Velocity Time Integral 26.7 cm LVOT Peak Velocity 122.0 cm/s LVOT Peak Gradient 6.0 mmHg LVOT Velocity Time Integral 29.1 cm LVOT Cardiac Index 2762.7 cm?/min?m? AV Area Cont Eq vti 3.1 cm? AV Area Cont Eq pk 2.5 cm? MV Area PHT 2.4 cm? Mitral E Point Velocity 73.0 cm/s Mitral A Point Velocity 78.2 cm/s Mitral E to A Ratio 0.9 TR Peak Velocity 162.0 cm/s TR Peak Gradient 10.5 mmHg PV Peak Velocity 97.7 cm/s PV Peak Gradient 3.8 mmHg FINDINGS Left Ventricle Hyperdynamic. Normal left ventricular size, wall thickness, systolic function with no obvious regional wall motion abnormalities.there is grade I diastolic dysfunction of the left ventricle (impaired relaxation pattern). The ejection fraction is visually estimated at 65-70%. Right Ventricle The right ventricle is normal in size and systolic function. Left Atrium The left atrium is normal by two-dimensional, color flow and Doppler imaging with no structural abnormalities, no thrombus formation present. Right Atrium The right atrium is normal by two-dimensional imaging, color flow and Doppler imaging with no structural abnormalities, no thrombus formation present. Atrial Septum The interatrial septum appears normal with no evidence of a shunt. Aorta The aorta is normal by two-dimensional, color flow and Doppler interrogation. Mitral Valve Mild thickening of the mitral valve leaflets. Mild mitral regurgitation. Aortic Valve Aortic valve sclerosis without stenosis. Tricuspid Valve The tricuspid valve is normal by two-dimensional, color flow and Doppler interrogation. There is trace tricuspid valve regurgitation. Pulmonic Valve The pulmonic valve is not well visualized. There is no significant pulmonic valve regurgitation. Vessels The pulmonary artery appears normal. The inferior vena cava not well visualized Pericardium The pericardium is normal by two-dimensional imaging. There is no significant pericardial effusion. CONCLUSIONS Indication: Staph bacteremia Hyperdynamic LV. Normal left ventricular size. Estimated EF 65-70%. Grade I diastolic dysfunction. Normal right ventricular size and function. Aortic valve sclerosis without stenosis. Mild thickening of the mitral valve leaflets. Mild mitral and trace tricuspid regurgitation noted. . IVC not well visualized Lc Renee (Electronically Signed) Final Date: 17 May 2025 12:02
[2025-05-15 09:38] LABS: Lactate (Lactic Acid) 2.8 mMol/L (0.4-2.0)
--- NOTE | 2025-05-15 09:56 | ESPR_ITS ---
Subjective Subjective Interval history: staph in bc labs ordered and echo too but seems more likely to be of resp origin. not all survive the staph pneumonia Exam Vital Signs Temp Pulse Resp BP Pulse Ox O2 Del Method O2 Flow Rate 97.6 F 59 L 17 115/72 96 High Flow Nasal Cannula 20 05/15/25 08:00 05/15/25 08:00 05/15/25 08:00 05/15/25 08:00 05/15/25 08:00 05/15/25 08:00 05/15/25 08:00 FiO2 40 05/15/25 07:00 Narrative Exam looks sl better today than last week Objective - Internal Medicine Labs 05/15/25 05:08 05/15/25 05:08 Labs: Laboratory Results - last 24 hr 05/09/25 05/11/25 05/11/25 04:36 04:27 06:38 WBC RBC Hgb Hct MCV MCH MCHC RDW Std Deviation Plt Count Neut % (Auto) Lymph % (Auto) [place] % (Auto) Eos % (Auto) Baso % (Auto) Neut # (Auto) Lymph # (Auto) [place] # (Auto) Eos # (Auto) Baso # (Auto) Immature Gran # (Auto) Absolute Nucleated RBC Immature Gran % Nucleated RBC % Sodium Potassium Chloride Carbon Dioxide Anion Gap BUN Creatinine Estim Creat Clear Calc eGFR BUN/Creatinine Ratio Glucose Calculated Osmolality Calcium Corrected Calcium Phosphorus Magnesium Total Bilirubin AST ALT Alkaline Phosphatase Total Protein Albumin Globulin Albumin/Globulin Ratio T.pallidum Ab (MHA) See Sep Rpt HCV RNA Quant (PCR) <15 NOT DETECTED HCV RNA (PCR) IU log10 <1.18 NOT DETECTED Beta-(1,3)-D-Glucan 104 H B-(1,3)-D-Glucan Intrp POSITIVE A Misc Test Result See Sep Rpt 05/14/25 05/15/25 14:52 05:08 WBC 9.6 RBC 4.34 L Hgb 12.3 L Hct 38.0 L MCV 88 MCH 28.3 MCHC 32.4 RDW Std Deviation 52.0 H Plt Count 212 Neut % (Auto) 68 Lymph % (Auto) 14 [place] % (Auto) 12 Eos % (Auto) 0 Baso % (Auto) 0 Neut # (Auto) 6.6 Lymph # (Auto) 1.3 [place] # (Auto) 1.2 H Eos # (Auto) 0.0 Baso # (Auto) 0.0 Immature Gran # (Auto) 0.50 H Absolute Nucleated RBC 0.00 Immature Gran % 5 H Nucleated RBC % 0 Sodium 137 139 Potassium 4.2 D 3.8 Chloride 104 104 Carbon Dioxide 20.2 21.8 Anion Gap 13 13 BUN 29 H 34 H Creatinine 2.1 H 2.3 H Estim Creat Clear Calc 39.6 L 36.1 L eGFR 36 L 32 L BUN/Creatinine Ratio 14 15 Glucose 133 H 108 H Calculated Osmolality 281 286 Calcium 8.6 8.9 Corrected Calcium 8.8 9.1 Phosphorus 4.9 5.3 H Magnesium 2.2 Total Bilirubin 0.2 L AST 25 ALT 56 H Alkaline Phosphatase 66 Total Protein 6.2 Albumin 3.7 3.7 Globulin 2.5 Albumin/Globulin Ratio 1.5 T.pallidum Ab (MHA) HCV RNA Quant (PCR) HCV RNA (PCR) IU log10 Beta-(1,3)-D-Glucan B-(1,3)-D-Glucan Intrp Misc Test Result ABG Interpretation ABG results: 05/08/25 22:30 ABG pH 7.37 ABG pCO2 31 L ABG pO2 64 L ABG HCO3 18 L ABG O2 Saturation 88 L ABG Base Excess -7 L Assessment & Plan A&P Narrative hiv and pneumonia with pos bc with gpc. could be staph or more likely pneumococcus given hx. pjp and cocci in ddx fta is low at 1:1, so no rx at this time leave on rx for cocci but change to flucon as creat is up someand change rocephin to ancef and f/u wed .hiv related labs pending Time Spent With Patient Time: Total time spent is greater than 50% in coordination of care (as documented) at patient's floor/unit and/or counseling patient:
--- NOTE | 2025-05-15 11:00 | PD.RESCONSUL ---
HPI Data of Consult Consult date: 05/15/25 Requesting Physician: Ashwin Randolph DO Admitting Provider: Wu Bejarano MD Attending Provider: Ashwin Randolph DO Primary Care Provider: Physician No Primary/Family Consult Narrative Reason for consult: HANNA History of present illness: Mr. Joseph Gutierrez is a 59-year-old male with history of HIV (on Dovato since 2009, last CD4 31), prior hepatitis C (treated), hypothyroidism, depression, and past oral cancer s/p radiation, who presented with worsening shortness of breath and fever found to have acute hypoxic respiratory failure secondary to coccidioidomycosis pneumonia. He was started on amphotericin B, ceftriaxone, TMP-SMX, and prednisone per Infectious Disease. Nephrology was consulted for rising creatinine despite fluid resuscitation (baseline ~1.2) Cr 1.7 -> 2.1 -> 2.3 in the setting of multiple nephrotoxic agents and infection. 05/15/25: Patient seen and examined today. Reports overall improvement and less fatigue. Denies chest pain, dyspnea, abdominal pain, nausea, or fever. Appetite fair; oral ulcer still causes mild discomfort. Urine output adequate per nursing report. BP 106/71, HR 62 bpm, Labs: WBC 9.6, Hgb 12.3, Hct 38, Plt 212, Na 139, K 3.8, Cl 104, CO2 22, BUN 34, Cr 2.3 (from 2.1 yesterday, 1.7 day before; baseline 1.2), Ca 9.1, Mg 2.2, Phos 5.3, Lactic acid 2.8. Renal ultrasound and urine electrolytes pending. cc:: cc: Ashwin Randolph DO Exam Vital Signs Temp Pulse Resp BP Pulse Ox O2 Del Method O2 Flow Rate 97.6 F 59 L 17 115/72 96 High Flow Nasal Cannula 20 05/15/25 08:00 05/15/25 08:00 05/15/25 08:00 05/15/25 08:00 05/15/25 08:00 05/15/25 08:00 05/15/25 08:00 FiO2 40 05/15/25 07:00 Narrative Exam General: Alert, oriented ?3, in no acute distress. HEENT: Mucous membranes mildly dry; oral ulcer along right posterior mucosa. Neck: No JVD, supple. Cardiac: Regular rate and rhythm; S1, S2 present; no murmurs, rubs, or gallops. Pulmonary: Clear on auscultation; no wheezes. Abdomen: Soft, non-tender, non-distended; bowel sounds present. Extremities: No peripheral edema; pulses palpable bilaterally. Skin: Warm, dry; scattered healing scabbed lesions on forearms and shins. Neuro: Alert, following commands; no focal deficits. Results Labs 05/16/25 04:24 05/16/25 04:24 Labs: Short CBC 05/15/25 Range/Units 05:08 WBC 9.6 (3.8-10.6) Thou/mm3 Hgb 12.3 L (13.5-16.0) g/dL Hct 38.0 L (41.0-53.0) % Plt Count 212 (140-440) Thou/mm3 BMP 05/14/25 05/15/25 14:52 05:08 Sodium 137 139 Potassium 4.2 D 3.8 Chloride 104 104 Carbon Dioxide 20.2 21.8 BUN 29 H 34 H Creatinine 2.1 H 2.3 H Glucose 133 H 108 H Calcium 8.6 8.9 Liver Function 05/14/25 05/15/25 Range/Units 14:52 05:08 Total Bilirubin 0.2 L (0.3-1.2) mg/dL AST 25 (0-34) U/L ALT 56 H (10-49) U/L Alkaline Phosphatase 66 (46-116) U/L Albumin 3.7 3.7 (3.5-5.0) gm/dL ABG Interpretation ABG results: 05/08/25 22:30 ABG pH 7.37 ABG pCO2 31 L ABG pO2 64 L ABG HCO3 18 L ABG O2 Saturation 88 L ABG Base Excess -7 L Quality Measures Quality Measures VTE prophylaxis Medications Home Medications and Allergies Home Medications ?Medication ?Instructions ?Recorded ?Confirmed ?Type dolutegravir 50 mg-lamivudine 300 1 tab PO QDAY 05/27/21 05/09/25 History mg tablet (Dovato) levothyroxine 200 mcg tablet 150 mcg PO QDAY 05/27/21 05/09/25 History omeprazole 20 mg capsule,delayed 20 mg PO QDAY 05/27/21 05/09/25 History release venlafaxine 75 mg capsule,extended 150 mg PO QAM 05/27/21 05/09/25 History release 24 hr (Effexor XR) benzonatate 100 mg capsule 100 mg PO TID 05/09/25 05/09/25 History dapsone 100 mg tablet 50 mg PO DAILY 05/09/25 05/09/25 History fluconazole 200 mg tablet 200 mg PO DAILY 05/09/25 05/09/25 History levothyroxine 150 mcg tablet 150 mcg PO .AM 05/09/25 05/09/25 History venlafaxine 150 mg 150 mg PO QDAY 05/09/25 05/09/25 History capsule,extended release 24 hr Allergies Allergy/AdvReac Type Severity Reaction Status Date / Time sulfamethoxazole Allergy Severe HIVES Verified 05/08/25 21:57 trimethoprim Allergy Severe HIVES Verified 05/08/25 21:57 Visit Medications Acetaminophen (Acetaminophen 325 Mg Tablet) 650 mg PO Q6H PRN PRN Reason: Fever >100.4 Stop: 06/08/25 03:16 Acetaminophen (Acetaminophen 325 Mg Tablet) 650 mg PO Q6H PRN PRN Reason: PAIN SCALE 1-3 (mild Stop: 06/08/25 03:16 Last Admin: 05/10/25 18:02 Dose: 650 mg Albuterol/Ipratropium (Albuterol/Ipratropium (Duoneb) Rt Kelly 3 Ml Nebu) 3 ml INH Q6HRRT [facility] Stop: 06/08/25 06:59 Last Admin: 05/15/25 06:59 Dose: 3 ml (Dolutegravir- Lamivudine [Dovato] 50-300 Mg Tablet) 0 ea PO DAILY [facility] Stop: 06/08/25 13:44 Last Admin: 05/15/25 08:53 Dose: 1 tablet Diphenhydramine HCl (Diphenhydramine Inj 50 Mg/Ml Vial) 25 mg IVP X1 PRN PRN Reason: allergic reaction Fluconazole (Fluconazole 100 Mg Tablet) 400 mg PO QDAY [facility] Stop: 05/23/25 08:59 Fluticasone Propionate (Fluticasone Jorge A [place] 0.05% 16 Gm Btl) 1 spray NASAL BID PRN PRN Reason: Nasal Congestion Stop: 06/11/25 20:59 Guaifenesin (Guaifenesin Syrup 200 Mg/10 Ml Udc) 100 mg PO QID PRN; Protocol PRN Reason: COUGH Stop: 06/11/25 18:12 Heparin Sodium (Porcine) (Heparin Sod Inj 5000 Unit/Ml Vial) 5,000 unit SC BID HUSSEIN Stop: 05/23/25 08:59 Last Admin: 05/15/25 08:55 Dose: 5,000 unit Hydroxyzine HCl (Hydroxyzine Hcl 10 Mg Tablet) 10 mg PO Q6HR PRN PRN Reason: ANXIETY Stop: 06/11/25 18:12 Last Admin: 05/15/25 08:59 Dose: 10 mg Cefazolin Sodium (Ancef 2gm Ivpb) 2 gm in 100 mls @ 100 mls/hr IV Q12HR HUSSEIN Stop: 05/22/25 20:59 Levothyroxine Sodium 125 mcg/ (Levothyroxine Sodium 25 mcg) 150 mcg PO ACBR HUSSEIN Stop: 06/11/25 05:59 Last Admin: 05/15/25 05:10 Dose: 150 mcg Ondansetron HCl (Ondansetron Inj 2 Mg/Ml Inj 2 Ml) 4 mg IVP Q6H PRN; Protocol PRN Reason: NAUSEA OR VOMITING Stop: 06/08/25 03:16 Pantoprazole Sodium (Pantoprazole Inj 40 Mg Vial) 40 mg IVP BID [facility] Stop: 06/08/25 14:09 Last Admin: 05/15/25 08:59 Dose: 40 mg Sennosides (Senna Tablet) 1 tab PO QDAY PRN; Protocol PRN Reason: constipation Stop: 06/08/25 03:16 Last Admin: 05/15/25 05:10 Dose: 1 tab Venlafaxine HCl (Venlafaxine Xr 37.5 Mg Capcr) 150 mg PO QAM HUSSEIN Stop: 06/08/25 11:44 Last Admin: 05/15/25 08:50 Dose: 150 mg Discontinued Medications Acetaminophen (Acetaminophen 325 Mg Tablet) 650 mg PO PRN ONE Stop: 05/10/25 15:10 Last Admin: 05/10/25 15:20 Dose: Not Given Albuterol (Albuterol Rt 2.5 Mg/3 Ml Nebu) 2.5 mg INH X1 ONE Stop: 05/08/25 22:19 Last Admin: 05/08/25 22:54 Dose: 2.5 mg Doxycycline Hyclate (Doxycycline 100 Mg Tablet) 100 mg PO BID HUSSEIN Stop: 05/16/25 08:59 Last Admin: 05/09/25 10:13 Dose: 100 mg Fluconazole (Fluconazole 100 Mg Tablet) 200 mg PO DAILY HUSSEIN Stop: 05/16/25 11:44 Fluconazole (Fluconazole 100 Mg Tablet) 400 mg PO DAILY HUSSEIN Stop: 05/17/25 08:59 Fluconazole (Fluconazole 100 Mg Tablet) 400 mg PO DAILY HUSSEIN Stop: 05/16/25 13:54 Last Admin: 05/10/25 09:30 Dose: 400 mg Sodium Chloride (Ns) 1,000 mls @ 999 mls/hr IV .Q1H1M ONE Stop: 05/08/25 23:19 Last Infusion: 05/09/25 00:01 Dose: Infused Ceftriaxone Sodium/Dextrose (Rocephin/D5w 1gm Iv Premix) 1 gm in 50 mls @ 100 mls/hr IV X1 ONE Stop: 05/08/25 22:49 Last Infusion: 05/08/25 23:33 Dose: Infused Magnesium Sulfate (Magnesium Sulfate Ivpb) 2 gm in 50 mls @ 25 mls/hr IV X1 ONE Stop: 05/09/25 01:15 Last Infusion: 05/09/25 01:59 Dose: Infused Sodium Chloride (Ns) 1,000 mls @ 999 mls/hr IV .Q1H1M ONE Stop: 05/09/25 01:43 Last Infusion: 05/09/25 01:59 Dose: Infused Azithromycin 500 mg/ Sodium (Chloride) 250 mls @ 250 mls/hr IV X1 ONE Stop: 05/09/25 02:42 Last Infusion: 05/09/25 03:13 Dose: Infused Lactated Ringer's (Lactated Ringers) 1,000 mls @ 60 mls/hr IV .[id number] HUSSEIN Stop: 05/09/25 19:54 Last Admin: 05/09/25 04:29 Dose: 60 mls/hr Cefepime HCl 1 gm/ Sodium (Chloride) 50 mls @ 100 mls/hr IV QDAY HUSSEIN Stop: 05/16/25 08:59 Last Infusion: 05/10/25 10:00 Dose: Infused Metronidazole (Flagyl 500 Mg Iv) 500 mg in 100 mls @ 200 mls/hr IV Q8HR HUSSEIN Stop: 05/16/25 03:22 Metronidazole (Flagyl 500 Mg Iv) 500 mg in 100 mls @ 200 mls/hr IV X1 ONE Stop: 05/09/25 03:59 Last Infusion: 05/09/25 05:00 Dose: Infused Amphotericin B 400 mg/ Sterile (Water 48 ml/ Dextrose) 298 mls @ 149 mls/hr IV QDAY@1500 HUSSEIN; Protocol Stop: 05/17/25 15:44 Sodium Chloride (Ns) 500 mls @ 125 mls/hr IV .Q4H PRN PRN Reason: ampho infusion Stop: 06/09/25 15:10 Sodium Chloride (Ns) 500 mls @ 125 mls/hr IV .Q4H PRN PRN Reason: after ampho infusion Stop: 06/09/25 15:11 Last Infusion: 05/11/25 23:53 Dose: Infused Ceftriaxone Sodium/Dextrose (Rocephin/D5w 1gm Iv Premix) 1 gm in 50 mls @ 100 mls/hr IV QDAY HUSSEIN Stop: 05/17/25 15:17 Last Admin: 05/15/25 08:48 Dose: 100 mls/hr Amphotericin B 400 mg/ Sterile (Water 96 ml/ Dextrose) 346 mls @ 173 mls/hr IV QDAY@1500 HUSSEIN; Protocol Stop: 05/17/25 15:44 Amphotericin B 400 mg/ Sterile (Water 96 ml/ Dextrose) 346 mls @ 173 mls/hr IV QDAY@1500 HUSSEIN; Protocol Stop: 05/17/25 17:14 Last Admin: 05/14/25 14:15 Dose: 173 mls/hr Sodium Chloride (Ns) 500 mls @ 125 mls/hr IV .Q4H PRN PRN Reason: pre-ampho infusion Stop: 06/09/25 15:10 Lactated Ringer's (Lactated Ringers) 500 mls @ 999 mls/hr IV .Q31M ONE Stop: 05/14/25 09:33 Last Admin: 05/14/25 09:52 Dose: 999 mls/hr Cefazolin Sodium/Dextrose (Ancef Ivpb) 1 gm in 50 mls @ 100 mls/hr IV Q8HR HUSSEIN Stop: 05/22/25 09:18 Ketorolac Tromethamine (Ketorolac Inj 30 Mg/Ml Vial) 30 mg IVP X1 ONE Stop: 05/08/25 22:20 Last Admin: 05/08/25 22:52 Dose: 30 mg Levothyroxine Sodium (Levothyroxine Sodium 125 Mcg Tablet) 125 mcg PO X1 ONE Stop: 05/09/25 06:31 Last Admin: 05/09/25 08:27 Dose: 125 mcg Levothyroxine Sodium (Levothyroxine Sodium 100 Mcg Tablet) 150 mcg PO QDAY [facility] Stop: 06/09/25 08:59 Levothyroxine Sodium 125 mcg/ (Levothyroxine Sodium 25 mcg) 150 mcg PO ACBR HUSSEIN Stop: 05/17/25 08:29 Last Admin: 05/11/25 05:12 Dose: 150 mcg Levothyroxine Sodium (Levothyroxine Sodium 125 Mcg Tablet) 150 mcg PO ACBR [facility] Stop: 06/11/25 05:59 Lidocaine HCl (Lidocaine Viscous 2% 15 Ml Udc) 15 ml PO X1 ONE Stop: 05/13/25 11:52 Last Admin: 05/13/25 18:21 Dose: Not Given Methylprednisolone Sodium Succinate (Methylprednisolone Sod Succ 62.5 Mg/Ml 2ml Vial) 125 mg IVP X1 ONE Stop: 05/08/25 22:20 Last Admin: 05/08/25 22:52 Dose: 125 mg Methylprednisolone Sodium Succinate (Methylprednisolone Sod Succ 40 Mg/Ml Vial) 40 mg IVP QDAY [facility] Stop: 05/16/25 08:59 Last Admin: 05/10/25 09:27 Dose: 40 mg Ondansetron HCl (Ondansetron Inj 2 Mg/Ml Inj 2 Ml) 4 mg IVP X1 ONE; Protocol Stop: 05/08/25 22:29 Last Admin: 05/08/25 23:00 Dose: 4 mg (Dolutegravir- Lamivudine [Dovato] 50-300 Mg Tablet) 1 ea PO QDAY [facility]; Protocol Stop: 06/08/25 11:44 Prednisone (Prednisone 20 Mg Tablet) 40 mg PO BID [facility] Stop: 05/15/25 12:00 Last Admin: 05/15/25 08:50 Dose: 40 mg Sodium Chloride (Sodium Chloride Rt 10% 15 Ml Nebu) 5 ml INH X1 ONE Stop: 05/08/25 23:17 Last Admin: 05/09/25 00:36 Dose: 5 ml Trimethoprim/Sulfamethoxazole (Trimethoprim/Sulfa 160/800 Ds Tablet) 2 tab PO TID [facility] Stop: 05/27/25 13:59 Last Admin: 05/10/25 13:05 Dose: 2 tab Trimethoprim/Sulfamethoxazole (Trimethoprim/Sulfa 160/800 Ds Tablet) 2 tab PO TID HUSSEIN; Protocol Stop: 05/19/25 13:59 Last Admin: 05/15/25 05:09 Dose: 2 tab Assessment & Plan Plan 59-year-old male with HIV (CD4 31) and coccidioidomycosis pneumonia on amphotericin B and TMP-SMX, presenting with progressive acute kidney injury likely due to medication-induced nephrotoxicity with possible prerenal contribution from poor intake and infection. # Acute Kidney Injury Progressive rise in creatinine from baseline 1.2 -> 2.3. Pattern consistent with multifactorial HANNA likely amphotericin B and TMP-SMX?related nephrotoxicity, with possible prerenal component from decreased oral intake and infection. Patient states history of CKD. Plan: Continue strict I&O and daily weights. Renal ultrasound and urine electrolytes to assess renal perfusion and tubular function. Maintain gentle IV hydration; avoid volume overload. Avoid nephrotoxins (NSAIDs, IV contrast). Discuss with ID about possible adjustment or substitution for amphotericin B and TMP-SMX if renal function continues to worsen. Trend BUN/Cr, electrolytes, phosphorus, and magnesium daily. No immediate indication for dialysis; continue to monitor closely. # Electrolyte Abnormalities Phosphorus elevated (5.3) likely secondary to decreased renal clearance; other electrolytes stable. Plan: Started renal diet Recheck phosphorus in AM Continue to monitor Mg and Ca. 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 ----- Plan discussed with attending physician Dr. Gorge Downey MD PGY-1 Internal Medicine Attending Provider Attestation/Addendum Patient seen and examined with resident physician Dr. Downey. Note reviewed, agree with findings and recommendations. Based on his clinical history and the medications-suspect patient in ATN with rising creatinine daily. Noted Dr. Corral switched Amphotericin and Bactrim to fluconazole. Will monitor renal function closely. Renal ultrasound ordered. Will plan for renal scan tomorrow if creatinine still continues to be elevated. Continue with IV fluids. Thank you Jonny for allowing me to participate in the care of Mr. Gutierrez
[2025-05-15 12:37] LABS: Reflex Lactate? Y
[2025-05-15] MEDS: SODIUM CHLORIDE 0.9% 500 ML 500 ML 999 ML IV (12:53)
[2025-05-15 13:09] LABS: Lactic Acid, 3 HR 1.3 mMol/L (0.4-2.0)
--- NOTE | 2025-05-15 14:16 | ESPR_ITS ---
<Statement entered by Nishant Winslow MD - 05/15/25 14:49> Patient was seen and examined at bedside this morning. No acute overnight events. Patient's creatinine function has been uptrending and this morning was noticed that his toes and fingers were dusky in color. As amphotericin B is known to cause vasoconstriction this could be likely the inciting factor for these findings. Lactic acid was ordered and was 2.8 and then a repeat was 1.3 after 500 cc bolus. Infectious disease saw the patient and switch his amphotericin B to fluconazole 400 mg daily and switch his ceftriaxone to cefazolin 2 g twice daily until 05/22/2025 and also discontinued his prednisone.. Patient's O2 requirements have been steadily decreasing, but patient will most likely need outpatient O2. Nephrology on board. I have reviewed the note and agree with the resident's assessment & plan with exceptions as above. I have personally reviewed labs, imaging, home meds/prior records, examined the patient, formulated and discussed management plan with my attending Nishant Winslow PGY2 Disclaimer: Even though this this note was dictated by speech recognition and even though it was carefully revised there may still be minor errors in tubing machine operator due to voice recognition software. Documentation for date of: 05/15/25 Subjective Subjective Interval history: No acute overnight events. Patient seen and examined at bedside. Patient today is frustrated however does report improved shortness of breath. Endorses some anxiety and tearfulness due to current situation in the hospital and expresses that he wants to go home but knows he cannot. Endorses taking numbness of fingers and feet which are today slightly dusky. Endorses her last bowel movement was about a week ago and requests medication. Denies any chest pain, abdominal pain or urinary symptoms or fever. Vitals and labs reviewed. SBP [id number]. Heart rate high 50s to 70s. Saturating 96% on high flow nasal cannula 20 L. Hemoglobin stable 12.3, potassium 3.8, BUN stable slightly uptrending 34, creatinine increased from 2.1 to 2.3. Lactic acid 2.8 downtrended to 1.3 after 500 cc bolus. Magnesium 2.2, phosphate high at 5.3. HIV and HCV RNA undetectable. Beta D glucan positive. Per ID, discontinued TMP-SMX, amphotericin B, ceftriaxone and prednisone. Started fluconazole and cefazolin. Ordered repeat blood cultures and repeat beta D glucan.. For HANNA, nephrology consulted, Ulytes and renal US ordered. Lactic acid 2.8 and after 500 cc bolus, decreased to 1.3. Exam Vital Signs Temp Pulse Resp BP Pulse Ox O2 Del Method O2 Flow Rate 97.6 F 72 18 111/71 99 High Flow Nasal Cannula 20 05/15/25 12:00 05/15/25 13:11 05/15/25 13:11 05/15/25 12:00 05/15/25 13:11 05/15/25 12:00 05/15/25 13:11 FiO2 40 05/15/25 13:11 Narrative Exam GENERAL: AOx3, sitting up in bed comfortably on high flow NC HEENT: NO THRUSH, however this is an ulcer of rear R oral mucosa, mucous membranes moist, bilateral sclera anicteric CARDIOVASCULAR: regular rate and rhythm, S1/S2 present, no murmurs appreciated PULMONARY: diminished breath sounds bilaterally, crackles bilateral bases slightly improved ABDOMINAL: soft, non-tender, non-distended, no rebound/guarding, bowel sounds present EXTREMITIES: no peripheral edema SKIN: several small scabbed lesions various healing stages on BUE on forearms, BLE on shins, L ear, upper back, dusky discoloration of fingers and soles/toes NEURO: CN II-XII grossly intact, no focal deficits, alert, following commands Objective Labs 05/15/25 05:08 05/15/25 05:08 Labs: Laboratory Results - last 24 hr 05/09/25 05/11/25 05/11/25 04:36 04:27 06:38 WBC RBC Hgb Hct MCV MCH MCHC RDW Std Deviation Plt Count Neut % (Auto) Lymph % (Auto) [place] % (Auto) Eos % (Auto) Baso % (Auto) Neut # (Auto) Lymph # (Auto) [place] # (Auto) Eos # (Auto) Baso # (Auto) Immature Gran # (Auto) Absolute Nucleated RBC Immature Gran % Nucleated RBC % Sodium Potassium Chloride Carbon Dioxide Anion Gap BUN Creatinine Estim Creat Clear Calc eGFR BUN/Creatinine Ratio Glucose Calculated Osmolality Lactic Acid Calcium Corrected Calcium Phosphorus Magnesium Total Bilirubin AST ALT Alkaline Phosphatase Total Protein Albumin Globulin Albumin/Globulin Ratio T.pallidum Ab ([facility]) See Apr Rpt HCV RNA Quant (PCR) <15 NOT DETECTED HCV RNA (PCR) IU log10 <1.18 NOT DETECTED Beta-(1,3)-D-Glucan 104 H B-(1,3)-D-Glucan Intrp POSITIVE A Misc Test Result See Sep Rpt 05/14/25 05/15/25 05/15/25 14:52 05:08 09:10 WBC 9.6 RBC 4.34 L Hgb 12.3 L Hct 38.0 L MCV 88 MCH 28.3 MCHC 32.4 RDW Std Deviation 52.0 H Plt Count 212 Neut % (Auto) 68 Lymph % (Auto) 14 [place] % (Auto) 12 Eos % (Auto) 0 Baso % (Auto) 0 Neut # (Auto) 6.6 Lymph # (Auto) 1.3 [place] # (Auto) 1.2 H Eos # (Auto) 0.0 Baso # (Auto) 0.0 Immature Gran # (Auto) 0.50 H Absolute Nucleated RBC 0.00 Immature Gran % 5 H Nucleated RBC % 0 Sodium 137 139 Potassium 4.2 D 3.8 Chloride 104 104 Carbon Dioxide 20.2 21.8 Anion Gap 13 13 BUN 29 H 34 H Creatinine 2.1 H 2.3 H Estim Creat Clear Calc 39.6 L 36.1 L eGFR 36 L 32 L BUN/Creatinine Ratio 14 15 Glucose 133 H 108 H Calculated Osmolality 281 286 Lactic Acid 2.8 H Calcium 8.6 8.9 Corrected Calcium 8.8 9.1 Phosphorus 4.9 5.3 H Magnesium 2.2 Total Bilirubin 0.2 L AST 25 ALT 56 H Alkaline Phosphatase 66 Total Protein 6.2 Albumin 3.7 3.7 Globulin 2.5 Albumin/Globulin Ratio 1.5 T.pallidum Ab ([facility]) HCV RNA Quant (PCR) HCV RNA (PCR) IU log10 Beta-(1,3)-D-Glucan B-(1,3)-D-Glucan Intrp Misc Test Result 05/15/25 12:48 WBC RBC Hgb Hct MCV MCH MCHC RDW Std Deviation Plt Count Neut % (Auto) Lymph % (Auto) [place] % (Auto) Eos % (Auto) Baso % (Auto) Neut # (Auto) Lymph # (Auto) [place] # (Auto) Eos # (Auto) Baso # (Auto) Immature Gran # (Auto) Absolute Nucleated RBC Immature Gran % Nucleated RBC % Sodium Potassium Chloride Carbon Dioxide Anion Gap BUN Creatinine Estim Creat Clear Calc eGFR BUN/Creatinine Ratio Glucose Calculated Osmolality Lactic Acid 1.3 Calcium Corrected Calcium Phosphorus Magnesium Total Bilirubin AST ALT Alkaline Phosphatase Total Protein Albumin Globulin Albumin/Globulin Ratio T.pallidum Ab (A) HCV RNA Quant (PCR) HCV RNA (PCR) IU log10 Beta-(1,3)-D-Glucan B-(1,3)-D-Glucan Intrp Misc Test Result ABG Interpretation ABG results: 05/08/25 22:30 ABG pH 7.37 ABG pCO2 31 L ABG pO2 64 L ABG HCO3 18 L ABG O2 Saturation 88 L ABG Base Excess -7 L Quality Measures Quality Measures VTE prophylaxis Assessment & Plan Assessment Current Active Medications: Generic Name Dose Route Start Last Admin Trade Name Freq PRN Reason Stop Dose Admin Acetaminophen 650 mg 05/09/25 03:17 Acetaminophen 325 Mg Tablet PO 06/08/25 03:16 Q6H PRN Fever >100.4 Acetaminophen 650 mg 05/09/25 03:17 05/10/25 18:02 Acetaminophen 325 Mg Tablet PO 06/08/25 03:16 650 mg Q6H PRN Administration PAIN SCALE 1-3 (mild Albuterol/Ipratropium 3 ml 05/09/25 07:00 05/15/25 13:11 Albuterol/Ipratropium (Duoneb) Rt Kelly 3 Ml Nebu INH 06/08/25 06:59 3 ml Q6HRRT HUSSEIN Administration (Dolutegravir- 0 ea 05/09/25 13:45 05/15/25 08:53 Lamivudine [Dovato] PO 06/08/25 13:44 1 tablet 50-300 Mg Tablet) DAILY HUSSEIN Administration Diphenhydramine HCl 25 mg 05/09/25 11:45 Diphenhydramine Inj 50 Mg/Ml Vial IVP X1 PRN allergic reaction Fluconazole 400 mg 05/16/25 09:00 Fluconazole 100 Mg Tablet PO 05/23/25 08:59 QDAY HUSSEIN Fluticasone Propionate 1 spray 05/12/25 18:13 Fluticasone Jorge A [place] 0.05% 16 Gm Btl NASAL 06/11/25 20:59 BID PRN Nasal Congestion Guaifenesin 100 mg 05/12/25 18:13 Guaifenesin Syrup 200 Mg/10 Ml Udc PO 06/11/25 18:12 QID PRN COUGH Protocol Heparin Sodium (Porcine) 5,000 unit 05/09/25 09:00 05/15/25 08:55 Heparin Sod Inj 5000 Unit/Ml Vial SC 05/23/25 08:59 5,000 unit BID HUSSEIN Administration Hydroxyzine HCl 10 mg 05/12/25 18:13 05/15/25 08:59 Hydroxyzine Hcl 10 Mg Tablet PO 06/11/25 18:12 10 mg Q6HR PRN Administration ANXIETY Cefazolin Sodium 2 gm in 100 mls @ 100 mls/hr 05/15/25 21:00 Ancef 2gm Ivpb IV 05/22/25 20:59 Q12HR HUSSEIN Levothyroxine Sodium 125 mcg/ 150 mcg 05/12/25 06:00 05/15/25 05:10 Levothyroxine Sodium 25 mcg PO 06/11/25 05:59 150 mcg ACBR HUSSEIN Administration Ondansetron HCl 4 mg 05/09/25 03:17 Ondansetron Inj 2 Mg/Ml Inj 2 Ml IVP 06/08/25 03:16 Q6H PRN NAUSEA OR VOMITING Protocol Pantoprazole Sodium 40 mg 05/09/25 14:10 05/15/25 08:59 Pantoprazole Inj 40 Mg Vial IVP 06/08/25 14:09 40 mg BID HUSSEIN Administration Sennosides 1 tab 05/09/25 03:17 05/15/25 05:10 Senna Tablet PO 06/08/25 03:16 1 tab QDAY PRN Administration constipation Protocol Venlafaxine HCl 150 mg 05/09/25 11:45 05/15/25 08:50 Venlafaxine Xr 37.5 Mg Capcr PO 06/08/25 11:44 150 mg QAM HUSSEIN Administration Plan [facility] 59M pmhx significant for 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 #Acute Hypoxic Respiratory Failure 2/2 #Coccidiomycosis PNA #HIV on Dovato #Elevated lactic acid #Hx of Hepatitis C, previously treated Presented with 2 months of worsening fatigue, weakness, SOB and occasional fevers. Endorses some medication noncompliance of all home medications, missing doses a few times. On admission WBC 14.6, CRP 20.1, Procal 7.15 , ABG- SpO2 -64, saturating at 90% on 10L of O2, requiring BiPAP previously. Previously followed Dr. Corral outpatient however due to insurance issues has not had recent appointment. Previously on dapsone but stopped taking. CXR extensive L lung and R base PNA. CTAP bibasilar pneumonia, splenomegaly 15mm. CTA chest negative for PE. BLE US neg for DVT There is suspicion of PCP given HIV, pending CD4 count and sputum Cx, CAP vs opportunistic infection. sputum Cx +staph aureus, BCx 1/2 initially grew staph aureus, however repeat BCx NGTD. Syphilis + with previous syphilis + with + VRDL in 2022. Azithromycin (05/08), Ceftriaxone (05/08), Metronidazole (05/08), Doxy (05/09), fluconazole (05/09-05/10), Cefepime (05/09-05/10) s/p 2L NS in ED, methylpred 125 mg x1, Duoneb x1 Initial BCx 1/2 bottles s. aureus, sputum Cx staph aureus, repeat BCx 1/2 bottles GPC, possible contamination but is being covered with current abx. CD4 count 31. HIV RNA not detected and HCV RNA not detected. B D glucan positive. 05/15 lactate 2.8->1.3 s/p 500 cc bolus. Likely 2/2 abx toxicity with amphotericin B causing vasoconstriction. Oral exam this AM revealed no evidence of thrush but did show a rear R oral mucosal ulcer that could be related to HIV, or otherwise the patient believes it is due to his dentures irritating the area. 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 Short, with last appointment 04/06/25. Patient reports previously undergoing radiation as he could not tolerate chemotherapy. 12/10/23 PET scan revealed no hypermetabolic oropharyngeal mass but a hypermetabolic pulmonary mass L upper lobe. CT 01/05/24 15mm subcarinal lymph node and spiculated pulmonary mass L upper lobe 18mm. Repeat CT 02/02/25 no significant change with extensive nodular parenchymal disease R lung and R middle lobe, but more prominent nodular parenchymal disease L base including 12mm pulmonary nodule. Plan: - Consider consulting radiation oncology if patient does not improve with abx #HANNA likely prerenal Admission Cr 1.9, baseline 1.2-1.4. Following 2L NS, Cr improved to 1.5, now HANNA resolved. Cr bumped to 1.7->2.1 today. Likely 2/2 poor PO intake and current pulmonary infection. Second HANNA likely 2/2 abx s/e. s/p 500 cc LR bolus with no improvement in HANNA Plan: - CTM Cr - Avoid nephrotoxic agents and renally dose medication - Nephrology consulted, recs appreciated - TMPSMX and amphotericin B discontinued per ID #Hypothyrodism - Continue home Levothyroxine 150 mcg #Depression - Continue home venlafaxine ER 150 mg #Polysubstance use #Methanphetamine use #Tobacco use #Marijuana use UDS on admission positive for methamphetamines in which he smokes and marijuana - Extensive substance use counselling Hospital management: Lines: PIV Diet: Regular Bowel: Senna prn GI prophylaxis: IV pantoprazole 40 mg BID DVT prophylaxis: heparin q12 Disposition: med [facility] for IV abx CODE STATUS: FULL CODE Plan of care discussed with attending Dr. Randolph and PGY-2 Dr. Maxwell. Vicenta Meyers DO Internal Medicine PGY-1 Attending Provider Attestation/Addendum I have discussed and was present for the essential components of the history, physical examination, diagnosis, and treatment plan with the resident. I agree with the patient's care as documented by the resident and amended herein by me. Jonny Randolph DO. Although this document has been carefully reviewed, there may still be some phonetic and other typographical errors. These errors are purely grammatical due to imperfections in the software program and should not be construed in any way to compromise the substance of the patient's medical care during this visit. Patient seen and evaluated this AM. No acute events overnight, vital signs stable, patient afebrile, patient remains on high flow nasal cannula 20/40 however we are attempting to wean down. CBC largely unremarkable, BUN 34, creatinine did up trended to 2.3 today likely from medications, probable Amphotericin. ID did see the patient today has de-escalated antibiotic and antibiotic/antifungal coverage today to cefazolin and fluconazole. Patient will also continue his ART therapy with Dovato and prednisone 40 mg p.o. twice daily per infectious disease recommendations. Amphotericin, ceftriaxone and Bactrim have been discontinued. Will continue to monitor closely, likely discharge in 1 to 2 days pending continued improvement, patient will likely need home oxygen upon discharge, the patient was afebrile, ambulatory, tolerating PO intake, and stable. The patient was instructed to follow-up with primary care provider within 3-5 days of discharge and to return to the Emergency Department if symptoms persist or worsen. The patient understood and agreed to treatment plan and discharge instructions and infectious disease follow-up.
[2025-05-15] MEDS: LACTULOSE SYRUP 20 GM/30 ML UDC 30 GM PO (16:54)
[2025-05-15 19:50] LABS: Toxoplasma Antibody (IgM) <8.00
[2025-05-15] MEDS: ceFAZolin/D5W 2 GM IV 2 GM/100 ML BAG IV (20:30)
--- NOTE | 2025-05-15 22:55 | PC.NURSE ---
Dr. Brown notified regarding patient refusing to wear his continuous high flow oxygen (as well as any other oxygen therapy) at this time. Patient was yelling at the respiratory therapist and this RN as we were trying to help and educate patient on wearing his oxygen. Patient also raised his voice that he did not want to speak to a doctor either but that he wanted to sleep. Patient on continuous pulse oximetry monitoring, which Dr. Brown stated to continue to monitor.
[2025-05-16] VITALS: BP 98/55; PULSE 70; PULSE 71; RESP 20; TEMP 36.6; O2SAT 97
[2025-05-16 01:39] VITALS: PULSE 63; RESP 18; RESP 94; O2SAT 94
[2025-05-16 04:00] VITALS: BP 99/64; PULSE 60; PULSE 61; RESP 18; TEMP 36.1; O2SAT 98
[2025-05-16 05:26] LABS: Basophils # (Auto) 0.0 Thou/mm3 (0.0-0.2); Basophils % (Auto) 0 % (0-2.5); Eosinophils # (Auto) 0.0 Thou/mm3 (0.0-0.5); Eosinophils % (Auto) 0 % (0-10); Hematocrit 38.8 % (41.0-53.0); Hemoglobin 12.8 g/dL (13.5-16.0); Immature Granulocytes Auto 0.52 Thou/mm3 (0.00-0.00); Lymphocytes # (Auto) 1.2 Thou/mm3 (1.0-4.8); Lymphocytes % (Auto) 12 % (10-50); Mean Corpuscular HGB Conc 33.0 g/dl (31.0-37.0); Mean Corpuscular Hemoglobin 29.0 pg (25.0-35.0); Mean Corpuscular Volume 88 fL (80-100); Monocytes # (Auto) 1.0 Thou/mm3 (0.0-0.8); Monocytes % (Auto) 10 % (0-12); Neutrophils # (Auto) 7.0 Thou/mm3 (1.8-7.7); Neutrophils % (Auto) 72 % (37-80); Nucleated Red Blood Cell # 0.00 Thou/mm3 (0.00-0.00); Nucleated Red Blood Cell % 0 /100 WBC (0); Platelet Count 253 Thou/mm3 (140-440); RDW Standard Deviation 52.3 fL (35.1-43.9); Red Blood Count 4.42 Miln/mm3 (4.50-5.90); White Blood Count 9.6 Thou/mm3 (3.8-10.6)
[2025-05-16 05:58] LABS: Alanine Aminotransferase 42 U/L (10-49); Albumin, Serum 4.2 gm/dL (3.5-5.0); Albumin/Globulin Ratio 1.6 (1.2-2.2); Alkaline Phosphatase 68 U/L (46-116); Anion Gap 11 (7-16); Aspartate Amino Transferase 18 U/L (0-34); BUN/Creatinine Ratio 17 Ratio (12-20); Bilirubin,Total 0.2 mg/dL (0.3-1.2); Blood Urea Nitrogen 44 mg/dL (9-23); Calcium 9.2 mg/dL (8.3-10.6); Calcium (Corrected) 9.2 mg/dL (8.5-10.1); Carbon Dioxide 20.6 mMol/L (20.0-31.0); Chloride 105 mMol/L (98-107); Creatinine (Component) 2.6 mg/dL (0.6-1.3); Estimated Creatinine Clearance 32.0 mL/min (>60); Globulin 2.6 gm/dL (2.3-3.5); Glucose 112 mg/dL (74-106); Magnesium 2.3 mg/dL (1.6-2.6); Osmolality,Calculated 286 (275-295); Phosphorous 5.2 mg/dL (2.4-5.1); Potassium 4.1 mMol/L (3.4-5.1); Sodium 137 mMol/L (136-145); Total Protein 6.8 gm/dL (5.7-8.2); eGFR 28 See Note
[2025-05-16] MEDS: LEVOTHYROXINE SODIUM 125 MCG, LEVOTHYROXINE SODIUM 25 MCG 150 MCG PO (06:24)
[2025-05-16 06:50] LABS: CMV Antibody (IgG) >10.00 U/mL; CMV Antibody (IgM) <30.00 AU/mL; Toxoplasma Antibody (IgG) <7.20
[2025-05-16] MEDS: ALBUTEROL/IPRATROPIUM (Duoneb) RT SOL 3 ML NEBU INH (07:00)
[2025-05-16 07:02] VITALS: PULSE 64; PULSE 94; RESP 18; RESP 20; RESP 96; O2SAT 100
[2025-05-16 08:00] VITALS: BP 90/44; PULSE 69; PULSE 77; RESP 17; TEMP 36.2; O2SAT 99
[2025-05-16] MEDS: VENLAFAXINE XR 37.5 MG CAPCR 150 MG PO (08:52)
[2025-05-16] MEDS: HEPARIN SOD INJ 5000 UNIT/ML VIAL SC (08:53)
[2025-05-16] MEDS: FLUCONAZOLE 100 MG TABLET 400 MG PO (08:54)
--- NOTE | 2025-05-16 08:54 | ESPR_ITS ---
Documentation for date of: 05/16/25 Subjective Subjective Interval history: Mr. Joseph Gutierrez is a 59-year-old male with history of HIV (on Dovato since 2009, last CD4 31), prior hepatitis C (treated), hypothyroidism, depression, and past oral cancer s/p radiation, who presented with worsening shortness of breath and fever found to have acute hypoxic respiratory failure secondary to coccidioidomycosis pneumonia. He was started on amphotericin B, ceftriaxone, TMP-SMX, and prednisone per Infectious Disease. Nephrology was consulted for rising creatinine despite fluid resuscitation (baseline ~1.2) Cr 1.7 -> 2.1 -> 2.3 in the setting of multiple nephrotoxic agents and infection. 05/15/25: Patient seen and examined today. Reports overall improvement and less fatigue. Denies chest pain, dyspnea, abdominal pain, nausea, or fever. Appetite fair; oral ulcer still causes mild discomfort. Urine output adequate per nursing report. BP 106/71, HR 62 bpm, Labs: WBC 9.6, Hgb 12.3, Hct 38, Plt 212, Na 139, K 3.8, Cl 104, CO2 22, BUN 34, Cr 2.3 (from 2.1 yesterday, 1.7 day before; baseline 1.2), Ca 9.1, Mg 2.2, Phos 5.3, Lactic acid 2.8. Renal ultrasound and urine electrolytes pending. 05/16/2025: Patient seen and examined today. Doing well overall with no new complaints. Seen eating breakfast this morning. Denies chest pain, shortness of breath, abdominal pain, nausea, vomiting, or dysuria. Notes mild fatigue but otherwise feels improved. O2 saturation decreased transiently this morning when patient removed oxygen; patient declined to reapply nasal cannula despite explanation of importance. Appetite fair. Urine output adequate per patient. BP 99/64, HR 64 bpm. Labs: WBC 9.6, Hgb 12.8, Hct 38.8, Na 137, K 4.1, Cl 105, CO? 20.6, Cr 2.6 (from 2.3 yesterday; baseline 1.2), GFR 28 (from 32 yesterday), Ca 9.2, Mg 2.3, Phos 5.2. LFTs within normal limits. Renal ultrasound (05/15): 8 mm nonobstructing left renal calculus, small kidneys with bilateral cortical thinning and mild renal scar formation, no hydronephrosis. Exam Vital Signs Temp Pulse Resp BP Pulse Ox O2 Del Method O2 Flow Rate 97 F 64 18 99/64 100 Room Air 20 05/16/25 04:00 05/16/25 07:02 05/16/25 07:02 05/16/25 04:00 05/16/25 07:02 05/16/25 04:00 05/15/25 20:00 FiO2 40 05/15/25 20:00 Narrative Exam General: Alert, oriented ?3, in no acute distress. HEENT: Mucous membranes mildly dry; oral ulcer along right posterior mucosa. Neck: No JVD, supple. Cardiac: Regular rate and rhythm; S1, S2 present; no murmurs, rubs, or gallops. Pulmonary: Clear on auscultation; no wheezes. Abdomen: Soft, non-tender, non-distended; bowel sounds present. Extremities: No peripheral edema; pulses palpable bilaterally. Skin: Warm, dry; scattered healing scabbed lesions on forearms and shins. Neuro: Alert, following commands; no focal deficits. Objective Labs 05/16/25 04:24 05/16/25 04:24 Labs: Laboratory Results - last 24 hr 05/11/25 05/15/25 05/15/25 04:27 09:10 12:48 WBC RBC Hgb Hct MCV MCH MCHC RDW Std Deviation Plt Count Neut % (Auto) Lymph % (Auto) Hernando % (Auto) Eos % (Auto) Baso % (Auto) Neut # (Auto) Lymph # (Auto) Hernando # (Auto) Eos # (Auto) Baso # (Auto) Immature Gran # (Auto) Absolute Nucleated RBC Immature Gran % Nucleated RBC % Sodium Potassium Chloride Carbon Dioxide Anion Gap BUN Creatinine Estim Creat Clear Calc eGFR BUN/Creatinine Ratio Glucose Calculated Osmolality Lactic Acid 2.8 H 1.3 Calcium Corrected Calcium Phosphorus Magnesium Total Bilirubin AST ALT Alkaline Phosphatase Total Protein Albumin Globulin Albumin/Globulin Ratio CMV IgG Ab >10.00 H CMV IgM Ab <30.00 Toxoplasma IgG Ab <7.20 Toxoplasma IgM Ab <8.00 Toxoplasma Ab Interp SEE NOTE 05/16/25 04:24 WBC 9.6 RBC 4.42 L Hgb 12.8 L Hct 38.8 L MCV 88 MCH 29.0 MCHC 33.0 RDW Std Deviation 52.3 H Plt Count 253 D Neut % (Auto) 72 Lymph % (Auto) 12 Hernando % (Auto) 10 Eos % (Auto) 0 Baso % (Auto) 0 Neut # (Auto) 7.0 Lymph # (Auto) 1.2 Hernando # (Auto) 1.0 H Eos # (Auto) 0.0 Baso # (Auto) 0.0 Immature Gran # (Auto) 0.52 H Absolute Nucleated RBC 0.00 Immature Gran % 5 H Nucleated RBC % 0 Sodium 137 Potassium 4.1 Chloride 105 Carbon Dioxide 20.6 Anion Gap 11 BUN 44 H Creatinine 2.6 H Estim Creat Clear Calc 32.0 L eGFR 28 L BUN/Creatinine Ratio 17 Glucose 112 H Calculated Osmolality 286 Lactic Acid Calcium 9.2 Corrected Calcium 9.2 Phosphorus 5.2 H Magnesium 2.3 Total Bilirubin 0.2 L AST 18 ALT 42 Alkaline Phosphatase 68 Total Protein 6.8 Albumin 4.2 D Globulin 2.6 Albumin/Globulin Ratio 1.6 CMV IgG Ab CMV IgM Ab Toxoplasma IgG Ab Toxoplasma IgM Ab Toxoplasma Ab Interp ABG Interpretation ABG results: 05/08/25 22:30 ABG pH 7.37 ABG pCO2 31 L ABG pO2 64 L ABG HCO3 18 L ABG O2 Saturation 88 L ABG Base Excess -7 L Quality Measures Quality Measures VTE prophylaxis Assessment & Plan Assessment Current Active Medications: Generic Name Dose Route Start Last Admin Trade Name Freq PRN Reason Stop Dose Admin Acetaminophen 650 mg 05/09/25 03:17 Acetaminophen 325 Mg Tablet PO 06/08/25 03:16 Q6H PRN Fever >100.4 Acetaminophen 650 mg 05/09/25 03:17 05/10/25 18:02 Acetaminophen 325 Mg Tablet PO 06/08/25 03:16 650 mg Q6H PRN Administration PAIN SCALE 1-3 (mild Albuterol/Ipratropium 3 ml 05/09/25 07:00 05/16/25 07:00 Albuterol/Ipratropium (Duoneb) Rt Kelly 3 Ml Nebu INH 06/08/25 06:59 3 ml Q6HRRT HUSSEIN Administration (Dolutegravir- 0 ea 05/09/25 13:45 05/15/25 08:53 Lamivudine [Dovato] PO 06/08/25 13:44 1 tablet 50-300 Mg Tablet) DAILY HUSSEIN Administration Diphenhydramine HCl 25 mg 05/09/25 11:45 Diphenhydramine Inj 50 Mg/Ml Vial IVP X1 PRN allergic reaction Fluconazole 400 mg 05/16/25 09:00 Fluconazole 100 Mg Tablet PO 05/23/25 08:59 QDAY HUSSEIN Fluticasone Propionate 1 spray 05/12/25 18:13 Fluticasone Jorge A Bassett 0.05% 16 Gm Btl NASAL 06/11/25 20:59 BID PRN Nasal Congestion Guaifenesin 100 mg 05/12/25 18:13 Guaifenesin Syrup 200 Mg/10 Ml Udc PO 06/11/25 18:12 QID PRN COUGH Protocol Heparin Sodium (Porcine) 5,000 unit 05/09/25 09:00 05/16/25 08:53 Heparin Sod Inj 5000 Unit/Ml Vial SC 05/23/25 08:59 5,000 unit BID HUSSEIN Administration Hydroxyzine HCl 10 mg 05/12/25 18:13 05/15/25 16:55 Hydroxyzine Hcl 10 Mg Tablet PO 06/11/25 18:12 10 mg Q6HR PRN Administration ANXIETY Cefazolin Sodium 2 gm in 100 mls @ 100 mls/hr 05/15/25 21:00 05/15/25 20:30 Ancef 2gm Ivpb IV 05/22/25 20:59 100 mls/hr Q12HR HUSSEIN Administration Levothyroxine Sodium 125 mcg/ 150 mcg 05/12/25 06:00 05/16/25 06:24 Levothyroxine Sodium 25 mcg PO 06/11/25 05:59 150 mcg ACBR HUSSEIN Administration Ondansetron HCl 4 mg 05/09/25 03:17 Ondansetron Inj 2 Mg/Ml Inj 2 Ml IVP 06/08/25 03:16 Q6H PRN NAUSEA OR VOMITING Protocol Pantoprazole Sodium 40 mg 05/09/25 14:10 05/15/25 20:30 Pantoprazole Inj 40 Mg Vial IVP 06/08/25 14:09 40 mg BID HUSSEIN Administration Sennosides 1 tab 05/09/25 03:17 05/15/25 05:10 Senna Tablet PO 06/08/25 03:16 1 tab QDAY PRN Administration constipation Protocol Venlafaxine HCl 150 mg 05/09/25 11:45 05/16/25 08:52 Venlafaxine Xr 37.5 Mg Capcr PO 06/08/25 11:44 150 mg QAM HUSSEIN Administration Plan 59-year-old male with HIV (CD4 31) and recent coccidioidomycosis pneumonia, previously on amphotericin B and TMP-SMX (now discontinued), presenting with progressive HANNA likely secondary to ATN from prior nephrotoxic exposure and possible chronic renal changes, with continued creatinine rise likely related to the prolonged tissue half-life of amphotericin B. # Acute Kidney Injury likely ATN pattern Creatinine continues to uptrend (2.3 -> 2.6) despite discontinuation of nephrotoxins. Renal ultrasound showed small, scarred kidneys with cortical thinning; findings may indicate chronic background disease. Clinical course and medication exposure pattern most consistent with ATN. Plan: * Continue IV fluids for renal perfusion support. * NM renal scan ordered to further assess renal perfusion vs excretory function and confirm ATN pattern. * Monitor urine output and trend daily BUN/Cr. * Avoid nephrotoxins (NSAIDs, contrast, etc.). * ATN recovery may lag due to amphotericin?s prolonged tissue half-life (up to 15 days). * No current indication for dialysis. # Electrolyte Abnormalities Mild metabolic acidosis (CO2 20.6) and hyperphosphatemia (5.2). Plan: * Maintain renal diet. * Monitor bicarbonate; consider Bicitra if <20. * Recheck phosphorus daily # Coccidioidomycosis Pneumonia Improving respiratory status Now on fluconazole and cefazolin per ID. Plan: * Continue fluconazole and cefazolin per ID. * Encourage O2 compliance # CKD Renal ultrasound with bilateral cortical thinning and small kidneys suggests underlying chronicity. Plan: * Arrange outpatient nephrology follow-up for long-term CKD evaluation. 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 ----- Plan discussed with attending physician Dr. Gorge Downey MD PGY-1 Internal Medicine Attending Provider Attestation/Addendum Patient seen and examined with resident physician Dr. Downey. Note reviewed, agree with findings and recommendations. Creatinine still elevated. Renal scan ordered. Suspect ATN. Patient seems to be very angry and upset with her system today.
[2025-05-16] MEDS: ceFAZolin/D5W 2 GM IV 2 GM/100 ML BAG IV (09:12)
--- NOTE | 2025-05-16 09:12 | XR_ITS ---
EXAMINATION: AP chest single view TECHNIQUE: AP portable upright chest single view Date and time: May 16, 2025, 0940 hours, comparison May 08, 2025 INDICATIONS: Hypoxia difficulty breathing this week. FINDINGS: Pneumonia in the right middle lobe Mild prominence left ventricle Mild vascular congestion Moderate osteopenia IMPRESSION: Residual pneumonia in the right middle lobe
--- NOTE | 2025-05-16 10:59 | CHAP ---
Patient was visited by a Spiritual Care Volunteer on 05/16/2025 between 0905 and 1000 and received comfort, encouragement and/or prayer.
--- NOTE | 2025-05-16 11:29 | PC.NURSE ---
UPON ASSESSMENT NO IV'S NOTED.
--- NOTE | 2025-05-16 13:01 | PC.NURSE ---
1122- patient jump off out of bed and said he is going home right now, stated that no body went to his room dr. lopez went and talk to patient this morning but did not acknowledged doctor, he don't want to talk to no body, just lying in bed very quietly, patient took out his iv and heart monitor and start waking to stair ways, electronic security technician was called and meet his outside, dr lopez went and talked to patient ,but unable to convince patient.
--- NOTE | 2025-05-16 13:18 | PC.CC ---
1115-ASW received a call from [place], Care Integration Pharmacist and Dr. Webb who requested a MH assessment on this pt as he left AMA. According to Dr. Webb, he felt that pt is not in his right mind, specifically leaving AMA with all the serious medical conditions that he has. Dr. Webb is requesting a MH eval and stated the pt is physically located outside the hospital, sitting in front of the hospital on the benches in the front. ASW asked Dr. Webb if pt left with IVs in his arm or if he pulled them out. Dr. Webb stated he was not too sure, but stated pt did sign the AMA forms and stated he believed the assigned RN removed the IVs so the pt could leave. Dr. Webb later verified that the pt actually in fact left the campus and is no longer on site. ASW staffed this case with [employer]NER, Director Jian Jolly and it was determined that since the pt is not medically cleared and mostly left AMA, there is no need for a MH at this point. EOC.
--- NOTE | 2025-05-16 17:37 | ESDS_ITS ---
<Statement entered by Nishant Winslow MD - 05/16/25 18:14> Patient was seen and examined at bedside this morning. No acute overnight events. This morning patient did not want to speak with the medical team other than the nurse and did not want to speak with either of the residents including myself. Later on kalin jackson was called as patient had left his room and was downstairs ready to go. At this time I will try and talk to the patient, but patient started getting more aggressive with hand gestures as well as foul language and cursing. It was stated to him that we were trying to help him and trying to listen to him, but he continue with the cursing and follow language. At this time patient decided to leave AGAINST MEDICAL ADVICE and signed AMA paperwork. I have reviewed the note and agree with the resident's assessment & plan with exceptions as above. I have personally reviewed labs, imaging, home meds/prior records, examined the patient, formulated and discussed management plan with my attending Nishant Winslow PGY2 Disclaimer: Even though this this note was dictated by speech recognition and even though it was carefully revised there may still be minor errors in systems security analyst due to voice recognition software. Planned Discharge Date 05/16/25 DS: Providers Provider Date of admission: 05/09/25 03:05 Primary care physician: Physician No Primary/Family Admitting Provider: Wu Bejarano MD Attending Provider on Admission: Ashwin Randolph DO Consults: 05/09/25 05:54 Consult to Infectious Diseases Routine Comment: Consulting Provider: Ernst Corral 05/09/25 11:19 Referral Smoking Cessation Counseling Routine Comment: Smoking Cessation Education Needed Health Equity Referral - Transportation Routine Comment: Positive screening for transportation needs. 05/14/25 16:15 Consult to Nephrology Routine Comment: Consulting Provider: Yarely Pennington 05/15/25 23:09 Referral [place] Routine Comment: Attending Provider on DC: Matthias Piña MD Discharging Provider: Matthias Piña MD DS: Diagnosis Problem List Completed Was Problem List Reviewed/Reconciled?: Yes Hospital Course Hospital Course Hospital course: Summary: Joseph Gutierrez 59M pmhx significant for sexually transmitted HIV (Davato since 2024 CD4 31), hx of hep C (previously treated), reported CKD, hypothyroidism, polysubstance use (meth, tobacco, marijuana) presented to [facility] ED 05/08 for worsening SOB, generalized weakness and fever, admitted for acute hypoxic respiratory failure 2/2 coccidiomycosis PNA, found to have HANNA. Presented with 2 months of worsening fatigue, weakness, SOB and occasional fevers. Endorses some medication noncompliance of all home medications, missing doses a few times. On admission WBC 14.6, CRP 20.1, Procal 7.15, lactic acid 2.6, D-dimer elevated, saturating at 90% on 10L of O2, requiring BiPAP previously. Previously followed Dr. Corral outpatient but lost to follow up. CXR and CTAP showed significant pneumonia, suspected cocci vs bacterial. CTA chest negative for PE. Patient was initially placed on broad-spectrum antibiotics with opportunistic infections considered. CD4 count 31 with HIV RNA and HCV RNA not detected. However beta D glucan positive at 104. Repeat was drawn to investigate possible PCP PNA. ID was consulted and patient was placed on amphot ericin B and cefepime. Furthermore, two sets of blood cultures were taken and both resulted in one out of two bottles growing staph aureus. Although patient's oxygen requirement improved, patient started experiencing exacerbation of Raynaud's phenomenon, developed HANNA and lactic acidosis, attributed to amphotericin B and high dose bactrim. Creatinine continue to worsen despite discontinuing amphotericin B and switching to fluconazole per ID. Nephrology was consulted renal ultrasound results as below and patient was scheduled for an NM renal scan to evaluate kidney function however patient decided to leave AMA as he felt he had no say in his health. The patient has decided to leave against medical advice because and patient has normal mental status and adequate capacity to make medical decisions. The patient refuses hospital admission and wants to be discharged. The risks have been explained to the patient, including progression of possible worsening breathing, kidney function and illness, including permanent disability and . The benefits of admission have also been explained, including the availability and proximity of nurses, physicians, monitoring, diagnostic testing, treatment and infectious disease and nephrology evaluation. The patient was able to understand and state the risks and benefits of hospital admission and had the opportunity to ask questions about their medical condition. The patient was treated to the extent that patient would allow and knows that they may return for care at any time. Patient was also encouraged to return to the ER if symptoms persist or worsen. Imaging: CXR extensive L lung and R base PNA. CTAP bibasilar pneumonia, splenomegaly 15mm. CTA chest negative for PE. BLE US neg for DVT Hospital Diagnoses: #Acute Hypoxic Respiratory Failure 2/2 #Coccidiomycosis PNA #HIV on Dovato #Elevated lactic acid #Hx of Hepatitis C, previously treated #Stage IV tetromolar trigone cancer (2016) s/p radiation #Upper left lobe 18 mm pulmonary nodule #Chronic nodular parenchymal disease #HANNA likely prerenal #Hypothyrodism #Depression #Polysubstance use #Methanphetamine use #Tobacco use #Marijuana use Vicenta Meyers DO Internal Medicine, PGY-1 Time Spent with Patient Time attestation: Total time spent providing and/or coordinating discharge services: Time spent: Greater than 30 minutes Exam Vital Signs Temp Pulse Resp BP Pulse Ox O2 Del Method O2 Flow Rate 97.1 F 77 17 90/44 L 99 Room Air 20 05/16/25 08:00 05/16/25 08:00 05/16/25 08:00 05/16/25 08:00 05/16/25 08:00 05/16/25 08:00 05/16/25 08:00 FiO2 40 05/16/25 08:00 Narrative Exam GENERAL: AOx3, sitting up in bed comfortably on high flow NC HEENT: NO THRUSH, however this is an ulcer of rear R oral mucosa, mucous membranes moist, bilateral sclera anicteric CARDIOVASCULAR: regular rate and rhythm, S1/S2 present, no murmurs appreciated PULMONARY: diminished breath sounds bilaterally, crackles bilateral bases slightly improved ABDOMINAL: soft, non-tender, non-distended, no rebound/guarding, bowel sounds present EXTREMITIES: no peripheral edema SKIN: several small scabbed lesions various healing stages on BUE on forearms, BLE on shins, L ear, upper back, dusky discoloration of fingers and soles/toes NEURO: CN II-XII grossly intact, no focal deficits, alert, following commands Discharge Plan Plan Patient Disposition: Left Against Medical Advice Prescriptions/Referrals Prescriptions/Med Rec: No Action venlafaxine [Effexor XR] 75 mg Capsule,Extended Release 24hr 150 mg PO QAM omeprazole 20 mg Capsule,Delayed Release(Dr/Ec) 20 mg PO QDAY levothyroxine 200 mcg Tablet 150 mcg PO QDAY Dovato 50-300 mg Tablet 1 tab PO QDAY levothyroxine 150 mcg tablet 150 mcg PO .AM Patient Comments: TAKE 1 TABLET BY MOUTH EVERY DAY IN THE MORNING ON EMPTY STOMACH benzonatate 100 mg capsule 100 mg PO TID Patient Comments: TAKE 1 CAPSULE BY MOUTH THREE TIMES A DAY NEEDED FOR COUGH fluconazole 200 mg tablet 200 mg PO DAILY venlafaxine 150 mg capsule,extended release 24hr 150 mg PO QDAY Patient Comments: TAKE 1 CAPSULE BY MOUTH EVERY DAY dapsone 100 mg tablet 50 mg PO DAILY Referrals: No Primary/Family,Physician [Primary Care Provider] Patient/Caregiver Discharge Instructions Print Language: Belarusian Quality Discharge Quality Measures VTE prophylaxis MD Attestestation MD Attestation I reviewed labs, imaging, EKG, home medications and prior available records. Face to face evaluation was performed by me. I have personally examined the patient and discussed assessment and plan with the IM team. I reviewed the resident note and agree with the plan with exceptions as below. Acute hypoxic respiratory failure Cocci pneumonia HANNA on CKD Acute hypotension Ordered NM renal scan Nephrology is following Creatinine is not improving Continue HIV medications Patient left the hospital AMA Time spent is 40 minutes. More than 50% of the time was spent on patient education and coordination of care.
== END 2025-05-16 11:22 | disposition left against medical advice (07) | DRG 189 ==
LOC: SERX 05-09 03:01 → SERHOLD 05-09 03:35 → S3SX 05-09 09:52
PROVIDERS: Emergency Medicine; Internal Medicine Infectious Disease; Admitting Provider Internal Medicine; Visit Provider Student in an Organized Health Care Education/Training Program
DX: J96.01 Acute respiratory failure with hypoxia (principal); B59 Pneumocystosis; A41.9 Sepsis, unspecified organism; N17.0 Acute kidney failure with tubular necrosis; B20 Human immunodeficiency virus [HIV] disease; E87.20 Acidosis, unspecified; Z21 Asymptomatic human immunodeficiency virus [HIV] infection status; Z79.899 Other long term (current) drug therapy; F32.A Depression, unspecified; E03.9 Hypothyroidism, unspecified; Z79.890 Hormone replacement therapy; C06.9 Malignant neoplasm of mouth, unspecified; F19.90 Other psychoactive substance use, unspecified, uncomplicated; E83.39 Other disorders of phosphorus metabolism; F41.9 Anxiety disorder, unspecified; N18.31 Chronic kidney disease, stage 3a; N20.0 Calculus of kidney; K12.1 Other forms of stomatitis; F15.90 Other stimulant use, unspecified, uncomplicated; A53.9 Syphilis, unspecified; N27.1 Small kidney, bilateral; I73.00 Raynaud's syndrome without gangrene; I49.3 Ventricular premature depolarization; Z53.29 Procedure and treatment not carried out because of patient's decision for other reasons; Z88.1 Allergy status to other antibiotic agents; Z91.148 Patient's other noncompliance with medication regimen for other reason; Z92.3 Personal history of irradiation; T36.7X5A Adverse effect of antifungal antibiotics, systemically used, initial encounter; Z88.2 Allergy status to sulfonamides; Z88.8 Allergy status to other drugs, medicaments and biological substances
CPT/HCPCS: 36415; 36600; 71045; 71275; 74177; 76770; 80053; 80069; 80074; 80307; 81001; 82010; 82105; 82248; 82436; 82803; 83605; 83735; 83880; 84100; 84133; 84145; 84300; 84439; 84443; 84481; 84484; 85025; 85379; 85652; 86140; 86355; 86357; 86359; 86360; 86635; 86644; 86645; 86777; 86778; 86780; 87040; 87077; 87116; 87186; 87205; 87206; 87400; 87449; 87502; 87522; 87536; 87811; 89220; 93005; 93225; 93306; 93970; 94640; 94660; 94667; 96365; 96366; 96375; 96376; 99285; A4216; A4649; A9270; J0287; J0456; J0689; J0692; J0696; J1644; J1885; J2405; J2470; J2919; J3475; J3490; J7030; J7050; J7120; J7512; J7999; Q9967; J1836